=== PATIENT | male | born 1965 | race Caucasian/White ===

== ENCOUNTER 2016-07-23 12:24 | Inpatient (IN) | payer BC ==
[~2016-07-23] VITALS: Ht 188 cm; Wt 109.1 kg
[~2016-07-23 12:24] MED LIST: ALLDSR/24 PO; CMBIN INH; FLVHFAUNK; LANS15CA6 PO; T3; T4
[2016-07-23] MEDS ORDERED: ONDANSETRON INJ 2 MG/ML 2 ML VIAL IV STA (13:10)
[2016-07-23] MEDS ORDERED: MoRPHine SULFATE 4 MG/ML 1 ML CARP\\VIAL IV STA (13:10)
[2016-07-23 13:17] LABS: BASO % 0.2 %; BASO ABS # 0.03 K/uL (0-0.2); COMPLETE YES; EOS % 0.2 %; HEMATOCRIT 42.1 % (42-52); IG% 0.2 %; LYMPH % 6.1 %; LYMPH ABS # 0.89 K/uL (1.2-3.4); MEAN CELL VOLUME 89.8 fL (80-100); MEAN CORPUSCULAR HEMOGLOBIN 31.3 pg (25-34); MEAN CORPUSCULAR HGB CONC 34.9 g/dl (32-36); MEAN PLATELET VOLUME 9.1 fL (7.4-10.4); MONO % 8.3 %; PLATELET COUNT 282 K/uL (130-400); RED BLOOD COUNT 4.69 M/uL (4.7-6.1); WHITE BLOOD COUNT 14.63 K/uL (4.8-10.8)
[2016-07-23 13:34] LABS: BUN/CREATININE RATIO 14.7 (10-20); CALCIUM 8.8 mg/dl (8.5-10.1); CREATININE 1.2 mg/dl (0.60-1.40); POTASSIUM 4.1 mmol/L (3.5-5.1)
[2016-07-23] MEDS ORDERED: DIAZ5TAB PO (13:54)
[2016-07-23] MEDS ORDERED: PRAZ1CAP10 PO (13:54)
[2016-07-23] MEDS ORDERED: ADVIN50/60 INH (13:54)
[2016-07-23] MEDS ORDERED: TOPI50TA24 PO (13:54)
[2016-07-23] MEDS ORDERED: SPCCR30 TOP (13:54)
[2016-07-23] MEDS ORDERED: ATV/1 PO (13:54)
--- NOTE | 2016-07-23 14:31 | DIAGNOSTIC IMAGING REPORT ---
ABDOMEN AND PELVIS CT WITH IV CONTRAST CT DOSE: 751.18 mGy.cm HISTORY: Left lower quadrant abdominal pain. TECHNIQUE: Multiaxial CT images of the abdomen and pelvis were performed following the use of intravenous contrast. COMPARISON STUDY: Abdomen and pelvis CT 12/22/2008. FINDINGS: The liver, gallbladder, spleen, adrenal glands, and pancreas are unremarkable. No retroperitoneal lymphadenopathy. There are few bilateral renal calculi. The largest stone is seen within the right kidney and measures 4 mm. A 5 mm hypodense lesion within the right kidney is too small to characterize. There is a 1 cm obstructing stone at the left ureteropelvic junction resulting in moderate left hydronephrosis. There is associated left perinephric fat stranding/edema and a delayed left nephrogram due to the obstruction. No right-sided hydronephrosis. Normal bladder. No bowel wall thickening or obstruction. Normal appendix. IMPRESSION: 1. A 1 cm obstructing stone at the left ureteropelvic junction resulting in moderate left hydronephrosis. 2. Bilateral nephrolithiasis. Electronically signed by: Tim Madrid M.D. 07/23/2016 2:30 PM Dictated Date/Time: 07/23/2016 2:23 PM
[2016-07-23] MEDS ORDERED: HYDROmorphone INJ 1 MG/ML SYR IV STA (14:33)
--- NOTE | 2016-07-23 15:04 | EMERGENCY ROOM VISIT NOTE ---
History Report prepared by Manoj: Doron Cortez Under the Supervision of: Dr. Harsha Brothers M.D. First contact with patient: 13:04 Chief Complaint: ABDOMINAL PAIN Stated Complaint: DIVERTICULITIS Nursing Triage Summary: pt with diverticulitis flare up. pt reports constipated, left sided abdominal pain, nausea. pt hasnt ate since 1999 last pm. pt reports usually 'a normal bowl pattern' History of Present Illness The patient is a 51 year old male who presents to the Emergency Room with complaints of persistent pain in his left lower abdominal quadrant that began last night at 2200, 13 hours prior to arrival. The patient describes the pain as "sharp," and notes that it becomes worse when he sits down. He also complains of nausea that began about two hours ago. The patient notes that he has not had a bowel movement in over a day, which is unusual for him. He denies any vomiting or urinary irregularities. He has a history of diverticulitis, but has never had any issues with kidney stones. Source of History: patient Onset: 13 hours STEWARD/STEWARDESS BATH Position: abdomen (LLQ) Symptom Intensity: severe Quality: sharp Timing: other (Persistent) Modifying Factors (Worsening): other (Sitting) Associated Symptoms: + nausea, No urinary symptoms, No vomiting Review of Systems See HPI for pertinent positives & negatives. A total of 10 systems reviewed and were otherwise negative. Past Medical & Surgical Patient notes no past medical/surgical history. Family History Cancer Diabetes mellitus Heart disease Hypertension Social History Smoking Status: Never Smoker Drug Use: none Marital Status: Housing Status: lives with significant other Occupation Status: employed Current/Historical Medications Scheduled Diazepam (Valium), 5 MG PO DAILY Econazole Nitrate (Econazole Nitrate Crm 1% 30 Gm), TOP DAILY Fluticasone Prop/Salmeterol (Advair Diskus 500/50 60 Dose), 1 PUFF INH BID Lorazepam (Ativan), 1 MG PO DAILY Prazosin Hcl (Prazosin), 1 MG PO HS Topiramate (Topamax), 50 MG PO BID Allergies Coded Allergies: Shellfish (Verified Allergy, Severe, SEVERE., 07/23/16) [place] (Verified Allergy, Severe, SEVERE., 07/23/16) [place] (Verified Allergy, Severe, SEVERE., 07/23/16) Penicillins (Verified Allergy, Unknown, 07/23/16) Sulfa Drugs (Verified Allergy, Unknown, 07/23/16) Pantoprazole (Verified Adverse Reaction, Unknown, "NON-TOLERANT", 07/23/16) Physical Exam Vital Signs Date Time Temp Pulse Resp B/P Pulse Ox O2 Delivery O2 Flow Rate FiO2 07/23/16 14:31 58 20 143/92 100 Room Air 07/23/16 12:37 37.1 65 20 183/87 99 Room Air Physical Exam Constitutional: Vital signs reviewed. Eyes: Pupils are equal round reactive to light. Conjunctiva are noninjected. ENT: Pharynx is clear without erythema or exudate. Mucous membranes are moist. Neck supple without meningeal signs. Respiratory: Clear to auscultation bilaterally. Breath sounds are equal bilaterally. Cardiovascular: Regular rate and rhythm. No rubs or gallops. GI: Soft, nondistended, with tenderness in the LLQ. No guarding. Bowel sounds are present. Musculoskeletal: No peripheral edema. No CVA tenderness. Integumentary: No cyanosis. Neurological: The patient is awake and alert. No focal deficits. Psychiatric: Normal affect. Medical Decision & Procedures ER Provider Diagnostic Interpretation: Other radiology results as stated below per my review and the radiologist's interpretation: ABDOMEN AND PELVIS CT WITH IV CONTRAST CT DOSE: 751.18 mGy.cm HISTORY: Left lower quadrant abdominal pain. TECHNIQUE: Multiaxial CT images of the abdomen and pelvis were performed following the use of intravenous contrast. COMPARISON STUDY: Abdomen and pelvis CT 12/22/2008. FINDINGS: The liver, gallbladder, spleen, adrenal glands, and pancreas are unremarkable. No retroperitoneal lymphadenopathy. There are few bilateral renal calculi. The largest stone is seen within the right kidney and measures 4 mm. A 5 mm hypodense lesion within the right kidney is too small to characterize. There is a 1 cm obstructing stone at the left ureteropelvic junction resulting in moderate left hydronephrosis. There is associated left perinephric fat stranding/edema and a delayed left nephrogram due to the obstruction. No right-sided hydronephrosis. Normal bladder. No bowel wall thickening or obstruction. Normal appendix. IMPRESSION: 1. A 1 cm obstructing stone at the left ureteropelvic junction resulting in moderate left hydronephrosis. 2. Bilateral nephrolithiasis. Electronically signed by: Tim Madrid M.D. 07/23/2016 2:30 PM Dictated Date/Time: 07/23/2016 2:23 PM Laboratory Results 07/23/16 13:08 Red Blood Count 4.69, Mean Corpuscular Volume 89.8, Mean Corpuscular Hemoglobin 31.3, Mean Corpuscular Hemoglobin Concent 34.9, Mean Platelet Volume 9.1, Neutrophils (%) (Auto) 85.0, Lymphocytes (%) (Auto) 6.1, Monocytes (%) (Auto) 8.3, Eosinophils (%) (Auto) 0.2, Basophils (%) (Auto) 0.2, Neutrophils # (Auto) 12.43, Lymphocytes # (Auto) 0.89, Monocytes # (Auto) 1.22, Eosinophils # (Auto) 0.03, Basophils # (Auto) 0.03 07/23/16 13:08 Test 07/23/16 13:08 07/23/16 14:40 White Blood Count 14.63 K/uL (4.8-10.8) Red Blood Count 4.69 M/uL (4.7-6.1) Hemoglobin 14.7 g/dL (14.0-18.0) Hematocrit 42.1 % (42-52) Mean Corpuscular Volume 89.8 fL (80-100) Mean Corpuscular Hemoglobin 31.3 pg (25-34) Mean Corpuscular Hemoglobin Concent 34.9 g/dl (32-36) Platelet Count 282 K/uL (130-400) Mean Platelet Volume 9.1 fL (7.4-10.4) Neutrophils (%) (Auto) 85.0 % Lymphocytes (%) (Auto) 6.1 % Monocytes (%) (Auto) 8.3 % Eosinophils (%) (Auto) 0.2 % Basophils (%) (Auto) 0.2 % Neutrophils # (Auto) 12.43 K/uL (1.4-6.5) Lymphocytes # (Auto) 0.89 K/uL (1.2-3.4) Monocytes # (Auto) 1.22 K/uL (0.11-0.59) Eosinophils # (Auto) 0.03 K/uL (0-0.5) Basophils # (Auto) 0.03 K/uL (0-0.2) RDW Standard Deviation 46.0 fL (36.4-46.3) RDW Coefficient of Variation 14.0 % (11.5-14.5) Immature Granulocyte % (Auto) 0.2 % Immature Granulocyte # (Auto) 0.03 K/uL (0.00-0.02) Anion Gap 11.0 mmol/L (3-11) Est Creatinine Clear Calc Drug Dose 95.8 ml/min Estimated GFR () 80.7 Estimated GFR (Non- 69.6 BUN/Creatinine Ratio 14.7 (10-20) Calcium Level 8.8 mg/dl (8.5-10.1) Total Bilirubin 0.8 mg/dl (0.2-1) Direct Bilirubin 0.2 mg/dl (0-0.2) Aspartate Amino Transf (AST/SGOT) 21 U/L (15-37) Alanine Aminotransferase (ALT/SGPT) 28 U/L (12-78) Alkaline Phosphatase 74 U/L (45-117) Total Protein 7.6 gm/dl (6.4-8.2) Albumin 3.9 gm/dl (3.4-5.0) Lipase 161 U/L (73-393) Laboratory results as reviewed by me. Medications Administered Medications (Trade) Dose Ordered Sig/Mikel Route Start Time Stop Time Status Last Admin Dose Admin Morphine Sulfate (MoRPHine SULFATE INJ) 4 mg ONE STAT IV 07/23/16 13:10 07/23/16 13:12 DC 07/23/16 13:20 4 MG Ondansetron HCl (Zofran Inj) 4 mg NOW STAT IV 07/23/16 13:10 07/23/16 13:12 DC 07/23/16 13:20 4 MG Hydromorphone HCl (Dilaudid Inj) 0.5 mg NOW STAT IV 07/23/16 14:33 07/23/16 14:34 DC 07/23/16 14:47 0.5 MG ED Course 1307: The patient was evaluated in room A3. A complete history and physical exam was performed. 1310: Ordered Zofran 4 mg IV, Morphine Sulfate 4 mg IV. Medical Decision This is a 51-year-old male presents with left-sided abdominal pain. Differential diagnosis includes diverticulitis, perforation, abscess, renal colic, strain. I did perform a limited focused review of portions of the patient's old chart on the electronic medical record. The patient has had no recent pertinent visits to this hospital. I did evaluate the patient as noted above. IV access was established. I did treat patient with IV morphine and Zofran. I did order and personally review the patient's urinalysis as described above. I did order and review the patient 's blood work as noted in the electronic medical record. His white blood cell count is elevated. I did order a CT of the abdomen and pelvis. I did review the images myself as well as the radiology report as described above. He does have a 1 cm stone on the left side. I did reassess the patient. He is still having significant pain which he rates a 12 out of 10 in severity. He was given Dilaudid 0.5 mg IV. He did have some improvement but still in pain and wish to be hospitalized for pain control. I did discuss the case with the hospitalist and immigration case manager. Consults Time Called: 14:58 Consulting Physician: Mo Impression Primary Impression: Renal colic on left side Additional Impression: Obstructive uropathy Scribe Attestation The scribe's documentation has been prepared under my direct and personally reviewed by me in its entirety. I confirm that the note above accurately reflects all work, treatment, procedures, and medical decision making performed by me. Departure Information Dispostion Being Evaluated By Hospitalist Angel Briceno M.D. (PCP) Patient Instructions My [facility] Problem Qualifiers
[2016-07-23 15:11] LABS: URINE APPEARANCE CLOUDY (CLEAR); URINE BILIRUBIN NEG (NEG); URINE COLOR YELLOW; URINE EPITHELIAL CELL AUTO >30 /lpf (0-5); URINE NITRITE NEG (NEG); URINE PH 7.5 (4.5-7.5); URINE SPECIFIC GRAVITY > 1.045 (1.000-1.030); UROBILINOGEN NEG (NEG)
[2016-07-23 15:12] LABS: MANUAL MICROSCOPIC REQUIRED? NO; REVIEW REQ? YES
[2016-07-23] MEDS ORDERED: ONDANSETRON INJ 2 MG/ML 2 ML VIAL IV PRN ×2 (16:00→20:45)
[2016-07-23] MEDS ORDERED: HYDROmorphone INJ 0.5 MG/0.5 ML SYR IV PRN (16:00)
[2016-07-23] MEDS ORDERED: HYDROmorphone INJ 0.5 MG/0.5 ML SYR ONE (16:37)
--- NOTE | 2016-07-23 16:58 | History and Physical ---
History & Physical Date & Time of Service: Jul 23, 2016 at 16:29 Chief Complaint: Left lower quadrant pain Primary Care Physician: Angel Major M.D. History of Present Illness Source: patient This is a 51 y/o male with PMHx of asthma, anxiety and PTSD presented to the hospital complaining of Left lower quadrant abdominal pain since yesterday night. He states that the pain started yesterday around 22:00 and he never had this type of pain before. Describes the pain as sharp, rates it as 10-12 when severe, and sitting makes it worse. Lying down, standing and passing urine makes the pain better. He doesn't have any history of kidney stone. He usually don't drink water much. He drinks coffee a lot. He has hx of diverticulitis and he thought the pain may be was from the diverticulitis. He feels nauseated but denies vomiting. In ED he received morphine 4mg (4x) and Dilaudid 0.5mg and states the pain medication helped him with the pain. Denies fever, dysuria, urinary frequency, urinary urgency, hematuria, vomiting, SOB, headache, dizziness, or any other additional problems. Past Medical/Surgical History (1) Diverticulitis (2) Anxiety (3) Post Traumatic Stress Disorder (4) Asthma Family History Cancer Diabetes mellitus Heart disease Hypertension Social History Smoking Status: Former Smoker Alcohol Use: none Drug Use: none Marital Status: Occupational Status: employed Immunizations History of Influenza Vaccine: N/A History of Tetanus Vaccine?: Yes History of Pneumococcal: No History of Hepatitis B Vaccine: Unknown Multi-Drug Resistant Organisms History of MDRO: No Allergies Coded Allergies: Shellfish (Verified Allergy, Severe, SEVERE., 07/23/16) [place] (Verified Allergy, Severe, SEVERE., 07/23/16) [place] (Verified Allergy, Severe, SEVERE., 07/23/16) Penicillins (Verified Allergy, Unknown, 07/23/16) Sulfa Antibiotics (Verified Allergy, Unknown, ., 07/23/16) Pantoprazole (Verified Adverse Reaction, Unknown, "NON-TOLERANT", 07/23/16) Home Medications Scheduled Diazepam (Valium), 5 MG PO DAILY Econazole Nitrate (Econazole Nitrate Crm 1% 30 Gm), TOP DAILY Fluticasone Prop/Salmeterol (Advair Diskus 500/50 60 Dose), 1 PUFF INH BID Lorazepam (Ativan), 1 MG PO DAILY Prazosin Hcl (Prazosin), 1 MG PO HS Topiramate (Topamax), 50 MG PO BID Review of Systems Constitutional: No fever Respiratory: No cough, No dyspnea on exertion, No shortness of breath Cardiovascular: No chest pain Abdomen: + nausea, + pain (LLQ pain), No vomiting Musculoskeletal: No muscle pain Genitourinary - Male: No dysuria, No urinary frequency, No urinary incontinence , No urinary urgency Integumentary: No rash Physical Exam Vital Signs Date Time Temp Pulse Resp B/P Pulse Ox O2 Delivery O2 Flow Rate FiO2 07/23/16 15:30 61 18 142/78 99 Room Air 07/23/16 14:31 58 20 143/92 100 Room Air 07/23/16 12:37 37.1 65 20 183/87 99 Room Air General Appearance: WD/WN, + mild distress Neck: supple, trachea midline Respiratory/Chest: chest non-tender, lungs clear, normal breath sounds, no respiratory distress Cardiovascular: regular rate, rhythm, no edema, no murmur Abdomen/GI: normal bowel sounds, soft, no pulsatile mass, + tenderness (tender on LLQ on palpation) Extremities/Musculoskelatal: no pedal edema, non-tender Neurologic/Psych: alert, normal mood/affect, oriented x 3 Skin: normal color, warm/dry Diagnostics Laboratory Results Results Past 24 Hours Test 07/23/16 13:08 07/23/16 14:40 Range/Units White Blood Count 14.63 4.8-10.8 K/uL Red Blood Count 4.69 4.7-6.1 M/uL Hemoglobin 14.7 14.0-18.0 g/dL Hematocrit 42.1 42-52 % Mean Corpuscular Volume 89.8 80-100 fL Mean Corpuscular Hemoglobin 31.3 25-34 pg Mean Corpuscular Hemoglobin Concent 34.9 32-36 g/dl Platelet Count 282 130-400 K/uL Mean Platelet Volume 9.1 7.4-10.4 fL Neutrophils (%) (Auto) 85.0 % Lymphocytes (%) (Auto) 6.1 % Monocytes (%) (Auto) 8.3 % Eosinophils (%) (Auto) 0.2 % Basophils (%) (Auto) 0.2 % Neutrophils # (Auto) 12.43 1.4-6.5 K/uL Lymphocytes # (Auto) 0.89 1.2-3.4 K/uL Monocytes # (Auto) 1.22 0.11-0.59 K/uL Eosinophils # (Auto) 0.03 0-0.5 K/uL Basophils # (Auto) 0.03 0-0.2 K/uL RDW Standard Deviation 46.0 36.4-46.3 fL RDW Coefficient of Variation 14.0 11.5-14.5 % Immature Granulocyte % (Auto) 0.2 % Immature Granulocyte # (Auto) 0.03 0.00-0.02 K/uL Sodium Level 141 136-145 mmol/L Potassium Level 4.1 3.5-5.1 mmol/L Chloride Level 109 98-107 mmol/L Carbon Dioxide Level 21 21-32 mmol/L Anion Gap 11.0 3-11 mmol/L Blood Urea Nitrogen 18 7-18 mg/dl Creatinine 1.20 0.60-1.40 mg/dl Est Creatinine Clear Calc Drug Dose 95.8 ml/min Estimated GFR () 80.7 Estimated GFR (Non- 69.6 BUN/Creatinine Ratio 14.7 10-20 Random Glucose 110 70-99 mg/dl Calcium Level 8.8 8.5-10.1 mg/dl Total Bilirubin 0.8 0.2-1 mg/dl Direct Bilirubin 0.2 0-0.2 mg/dl Aspartate Amino Transf (AST/SGOT) 21 15-37 U/L Alanine Aminotransferase (ALT/SGPT) 28 12-78 U/L Alkaline Phosphatase 74 45-117 U/L Total Protein 7.6 6.4-8.2 gm/dl Albumin 3.9 3.4-5.0 gm/dl Lipase 161 73-393 U/L Urine Color YELLOW Urine Appearance CLOUDY CLEAR Urine pH 7.5 4.5-7.5 Urine Specific [place] > 1.045 1.000-1.030 Urine Protein NEG NEG Urine Glucose (UA) NEG NEG Urine Ketones 2+ NEG Urine Occult Blood NEG NEG Urine Nitrite NEG NEG Urine Bilirubin NEG NEG Urine Urobilinogen NEG NEG Urine Leukocyte Esterase NEG NEG Urine WBC (Auto) 5-10 0-5 /hpf Urine RBC (Auto) 5-10 0-4 /hpf Urine Hyaline Casts (Auto) 1-5 0-5 /lpf Urine Epithelial Cells (Auto) >30 0-5 /lpf Urine Bacteria (Auto) NEG NEG Urine Renal Epithelial Cells 0-5 /lpf Urine Crystals AMORPHOUS SEDIMENT NONE PRSENT Urine Sperm (Auto) PRESENT NOT PRESENT Diagnostic Radiology ABDOMEN AND PELVIS CT WITH IV CONTRAST CT DOSE: 751.18 mGy.cm HISTORY: Left lower quadrant abdominal pain. TECHNIQUE: Multiaxial CT images of the abdomen and pelvis were performed following the use of intravenous contrast. COMPARISON STUDY: Abdomen and pelvis CT 12/22/2008. FINDINGS: The liver, gallbladder, spleen, adrenal glands, and pancreas are unremarkable. No retroperitoneal lymphadenopathy. There are few bilateral renal calculi. The largest stone is seen within the right kidney and measures 4 mm. A 5 mm hypodense lesion within the right kidney is too small to characterize. There is a 1 cm obstructing stone at the left ureteropelvic junction resulting in moderate left hydronephrosis. There is associated left perinephric fat stranding/edema and a delayed left nephrogram due to the obstruction. No right-sided hydronephrosis. Normal bladder. No bowel wall thickening or obstruction. Normal appendix. IMPRESSION: 1. A 1 cm obstructing stone at the left ureteropelvic junction resulting in moderate left hydronephrosis. 2. Bilateral nephrolithiasis. Electronically signed by: Tim Madrid M.D. 07/23/2016 2:30 PM Dictated Date/Time: 07/23/2016 2:23 PM The status of this report is Signed. Draft = Not yet reviewed or approved by Radiologist. Signed = Reviewed and approved by Radiologist. <AttendingPhy></AttendingPhy> <FamilyPhy>Angel Major M.D.</FamilyPhy> < PrimaryPhy>Angel Major M.D.</PrimaryPhy> <UnitNumber>[id number]</UnitNumber > <VisitNumber>[id number]</VisitNumber> <PatientName>AMI LOWERY</ PatientName> <DateOfBirth>1965</DateOfBirth> <Location>[facility]</Location> < ServiceDate>07/23/16</ServiceDate> <MNE>ESINDI</MNE> <OrderingPhy>Harsha Brothers MD</OrderingPhy> <OrderingPhyMNE>f rep ord dr casillas</OrderingPhyMNE> < DictatingPhyMNE>f rep dict dr casillas</DictatingPhyMNE> <CCListMNE>f rep ct mne</ CCListMNE> <AdmittingPhyMNE>f pt admit dr casillas</AdmittingPhyMNE> <AttendingPhyMNE >f pt attend dr casillas</AttendingPhyMNE> <ConsultingPhyMNE>f pt consult dr casillas</ConsultingPhyMNE> <FamilyPhyMNE>f pt fam dr casillas</FamilyPhyMNE> <OtherPhyMNE>f pt other dr casillas</OtherPhyMNE> < PrimaryPhyMNE>f pt prim care dr casillas</PrimaryPhyMNE Impression Assessment and Plan This is a 51 y/o male with PMHx of asthma, anxiety and PTSD presented to the hospital complaining of Left lower quadrant abdominal pain since yesterday night. 1. Nephrolithiasis - CT abd/pelvic: A 1 cm obstructing stone at the left ureteropelvic junction resulting in moderate left hydronephrosis. Bilateral nephrolithiasis. - Patient probably will need a stent placement. - Dilaudid 0.5 mg q2h prn for pain - IVF NSS+20 meq KCL @ 100mls/hr - IV Ciprofloxacin 400mg q12h - IV Zofran 4mg q6h prn - NPO except meds - Consulted Urology 2. Asthma - Continue Advair INH BID 3. Anxiety/PTSD - Continue Diazepam 5mg - Continue Ativan 1mg - Continue Topamax 50mg BID - Continue Prazosin 1mg 4. DVT prophylaxis - Hold on to anticoagulant for now given patient will most likely will need stent placement 5. Code status - Full code Level of Care Med/Surg Resuscitation Status FULL RESUSCITATION VTE Prophylaxis VTE Risk Assessment Done? Y/N: Yes Risk Level: Low Note about 45 minutes Assessment and Plan Attending Addendum: I have physically seen and examined this patient, have directed their medical care, have supervised the medical residents activities, and agree with the H&P as noted above, with the following changes: NONE The patient is awake, well-developed and adequately nourished, alert and oriented 3, normocephalic and atraumatic, lying in bed and in moderate acute distress secondary to abdominal pain. HEENT--PERRL, EOMI, mucous membranes and oropharynx dry. Neck--supple, no JVD or bruits, thyroid normal, trachea midline, no adenopathy. Heart--normal S1 and S2, no extra beats, no murmurs, rubs or gallops. Lungs--clear bilaterally, no respiratory distress, no accessory muscle use. Abdomen--normal bowel sounds and soft, tender left lower quadrant, no hernias or masses, no organomegaly. Extremities--no cyanosis, clubbing or edema. There are good distal pulses b/l. Dermatologic--normal skin turgor, normal color, warm and dry, no abnormal lymph nodes, no rash. Neurologic--cranial nerves II through XII grossly intact, motor and sensory examination normal. Rheumatologic--normal range of motion, nontender, muscles and joints. Psychiatric--normal affect. Assessment and Plan: Left 1 cm obstructing ureteral stone with moderate left hydronephrosis--patient be admitted to the medical surgical floor. Dr. Paulson has seen the patient tonight and will be taken the patient to the OR for stent placement. He'll be placed on normal saline with potassium chloride 20 mEq 100 mils per hour, kept nothing by mouth overnight, place on Cipro 40 mg IV every 12 hours, Zofran 4 mg IV every 6 hours when necessary. Asthma-- continue current inhaler of Advair twice a day. Anxiety/PTSD-- continue current regimen of diazepam 5 mg daily, Ativan 1 mg by mouth daily, Topamax 50 mg by mouth twice a day and prazosin 1 mg by mouth at bedtime.
[2016-07-23 17:20] VITALS: BP 144/82; PULSE 54; TEMP 36.9; O2SAT 99; Ht 188 cm; Wt 109.1 kg
--- NOTE | 2016-07-23 18:45 | Urology Consultation ---
History General Date of Service: Jul 23, 2016. Primary Care Physician: Angel Major M.D. History of Present Illness 51 y/o male with no stone history presented to the ER today with itractable left flank pain which is ongoing . He has had a ct which shows a 1 cm left upj stone . He denies fever . His pain remains severe even with pain meds . He has been NPO. Imaging Imaging: CT Laboratory Labs were reviewed and are within normal limits unless listed below. Labs are available in the chart and at [facility] Problem List Medical Problems: (1) Obstructive uropathy Status: Acute (2) Renal colic on left side Status: Acute Family History Cancer Diabetes mellitus Heart disease Hypertension Social History Hx Tobacco Use In Past Year?: No Marital status: Occupation status: employed Immunizations History of Influenza Vaccine: N/A History of Tetanus Vaccine?: Yes History of Pneumococcal: No History of Hepatitis B Vaccine: Unknown History of MDRO No Allergies Coded Allergies: Shellfish (Verified Allergy, Severe, SEVERE., 07/23/16) [place] (Verified Allergy, Severe, SEVERE., 07/23/16) [place] (Verified Allergy, Severe, SEVERE., 07/23/16) Penicillins (Verified Allergy, Unknown, 07/23/16) Sulfa Drugs (Verified Allergy, Unknown, 07/23/16) Pantoprazole (Verified Adverse Reaction, Unknown, "NON-TOLERANT", 07/23/16) Medications Home Medications: Home Meds and Scripts Medications Dose Route/Sig Max Daily Dose Days Date Category Econazole Nitrate Crm 1% 30 Gm (Econazole Nitrate) 90 Appln/30 Gm Cr TOP DAILY 07/23/16 Reported Advair Diskus 500/50 60 Dose (Fluticasone Prop/Salmeterol) 1 Ea Aerp 1 Puff INH BID 07/23/16 Reported Prazosin (Prazosin HCl) 1 Mg Cap 1 Mg PO HS 07/23/16 Reported Ativan (Lorazepam) 1 Mg Tab 1 Mg PO DAILY 07/23/16 Reported Valium (Diazepam) 5 Mg Tab 5 Mg PO DAILY 07/23/16 Reported Topamax (Topiramate) 50 Mg Tab 50 Mg PO BID 07/23/16 Reported Inpatient Medications: Current Inpatient Medications Medications (Trade) Dose Ordered Sig/Mikel Route Start Time Stop Time Status Last Admin Dose Admin Ondansetron HCl (Zofran Inj) 4 mg Q6H PRN IV 07/23/16 16:00 08/22/16 15:59 UNV Diazepam (Valium Tab) 5 mg DAILY PO 07/24/16 09:00 08/23/16 08:59 UNV Salmeterol Xinafoate/ Fluticasone (Advair Diskus 500/50 Inh) 1 puff BID INH 07/23/16 21:00 08/22/16 20:59 UNV Lorazepam (Ativan Tab) 1 mg DAILY PO 07/24/16 09:00 08/23/16 08:59 UNV Topiramate 50 mg 50 mg BID PO 07/23/16 21:00 08/22/16 20:59 UNV Ciprofloxacin/ Dextrose 400 mg/ Prmx 200 ml @ 100 mls/hr Q12 IV 07/23/16 21:00 07/28/16 20:59 UNV Potassium Chloride/Sodium Chloride (Nss + 20meq KCl 1000ml) 1,000 ml @ 100 mls/hr Q10H IV 07/23/16 18:00 08/22/16 17:59 Hydromorphone HCl (Dilaudid Inj) 0.5 mg Q2H PRN IV 07/23/16 16:00 08/06/16 15:59 UNV Non-Formulary Medication 1 ea UD N/A 07/23/16 16:30 08/22/16 16:29 UNV Review of Systems Review of Systems Additional Comments: see ros from admission h and p Physical Exam Vital Signs: Vital Signs Past 12 Hours Date Time Temp Pulse Resp B/P Pulse Ox O2 Delivery O2 Flow Rate FiO2 07/23/16 17:20 36.9 54 16 144/82 99 Room Air 07/23/16 17:15 56 18 138/83 98 07/23/16 16:30 50 18 138/83 98 Room Air 07/23/16 15:30 61 18 142/78 99 Room Air 07/23/16 14:31 58 20 143/92 100 Room Air 07/23/16 12:37 37.1 65 20 183/87 99 Room Air Physical Exam: General Appearance: + severe distress Eyes: bilateral eyes EOMI, bilateral eyes PERRL, bilateral eyes normal inspection ENT: normal ENT inspection, hearing grossly normal, TMs normal, pharynx normal Neck: supple, no adenopathy, thyroid normal, no JVD Respiratory/Chest: no respiratory distress Cardiovascular: no edema Extremities: no calf tenderness Neurologic/Psychiatric: 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 Plan on placing stent and scheduling elective eswl . If stone is not visible on kub he may need to have urine alkalinized if uric acid . Discussed stent and possibility that pain from stent might be a problem. Pt understands and agrees to proceed
[2016-07-23 19:29] VITALS: BP 136/88; PULSE 54; TEMP 36.9; O2SAT 99
[2016-07-23] MEDS ORDERED: ATROPINE SULFATE 0.1 MG/ML 5ML SYR IV PRN (20:45)
[2016-07-23] MEDS ORDERED: HYDROmorphone INJ 2 MG/ML SYR/VIAL IV PRN (20:45)
[2016-07-23] MEDS ORDERED: NALOXONE HCL 0.4 MG/1 ML VIAL/CARP IV PRN (20:45)
[2016-07-23] MEDS ORDERED: EpHEDrine SULFATE INJ 50 MG/ML AMP IV PRN (20:45)
[2016-07-23] MEDS ORDERED: MEPERIDINE HCL 25 MG/ML CARP IV PRN (20:45)
[2016-07-23] MEDS ORDERED: FENTANYL CITRATE INJ 50 MCG/1 ML 2 ML VIAL IV PRN (20:45)
[2016-07-23] MEDS ORDERED: PHENYLEPHRINE 100MCG/ML 5ML SYR IV PRN (20:45)
[2016-07-23] MEDS ORDERED: LABETALOL HCL IV 5 MG/ML 20ML IV PRN (20:45)
[2016-07-23] MEDS ORDERED: FLUMAZENIL 0.1 MG/1 ML 10 ML VIAL IV PRN (20:45)
[2016-07-23] MEDS ORDERED: FENTANYL CITRATE INJ 50 MCG/1 ML 2 ML VIAL ONE (20:49)
[2016-07-23] MEDS ORDERED: PRAZOSIN HCL 1 MG CAP PO SCH (21:00)
[2016-07-23] MEDS ORDERED: PRAZOSIN HCL 1 MG PO SCH (21:00)
[2016-07-23] MEDS: TOPIRAMATE 25 MG TAB PO SCH (21:00)
[2016-07-23] MEDS ORDERED: CIPROFLOXACIN / D5W 400 MG in PREMIXED IN D5W 200 ML IV SCH (21:00)
[2016-07-23] MEDS ORDERED: DEXAMETHASONE SOD INJ 4 MG/ML VIAL ONE (21:06)
[2016-07-23] MEDS ORDERED: ONDANSETRON INJ 2 MG/ML 2 ML VIAL ONE (21:06)
[2016-07-23] MEDS ORDERED: PROPOFOL IV EMULSION 10 MG/ML 20 ML VIAL IV ONE (21:06)
[2016-07-23] MEDS ORDERED: LIDOCAINE HCL 2% 2 ML VIAL (20MG/ML) ONE (21:06)
[2016-07-23] MEDS ORDERED: CONRAY 30% 150ML BOTTLE INSTIL ONE (21:11)
--- NOTE | 2016-07-23 21:20 | [facility] Post Operative Brief Note ---
Immediate Operative Summary Operative Date Jul 23, 2016. Pre-Operative Diagnosis Left Ureteral Stone Post-Operative Diagnosis Same as preop Procedure(s) Performed Cystoscopy, Left Ureteral Stent Insertion Surgeon Dr. Paulson Vault Clerk Surgeon(s) none Estimated Blood Loss 0 ML Findings dilated l renal pelvis Specimens none per Surgeon Drains 5 by 26 cm stent Disposition Recovery Room / PACU
--- NOTE | 2016-07-23 21:45 | Anesthesiology Progress Note ---
Anesthesia Post Op Note Date & Time Jul 23, 2016 at 21:45 Vital Signs Pain Intensity: 0 Vital Signs Past 12 Hours Date Time Temp Pulse Resp B/P Pulse Ox O2 Delivery O2 Flow Rate FiO2 07/23/16 21:35 67 16 131/72 99 Mask 10 07/23/16 21:25 70 18 122/67 99 Mask 10 07/23/16 21:23 36.6 72 18 119/89 99 Mask 10 07/23/16 19:29 36.9 54 14 136/88 99 Room Air 07/23/16 17:20 99 Room Air 07/23/16 17:20 36.9 54 16 144/82 99 Room Air 07/23/16 17:15 56 18 138/83 98 07/23/16 16:30 50 18 138/83 98 Room Air 07/23/16 15:30 61 18 142/78 99 Room Air 07/23/16 14:31 58 20 143/92 100 Room Air 07/23/16 12:37 37.1 65 20 183/87 99 Room Air Notes Mental Status: alert / awake / arousable, participated in evaluation Pt Amnestic to Procedure: Yes Nausea / Vomiting: adequately controlled Pain: adequately controlled Airway Patency, RR, SpO2: stable & adequate BP & HR: stable & adequate Hydration State: stable & adequate Anesthetic Complications: no major complications apparent
--- NOTE | 2016-07-23 21:56 | DIAGNOSTIC IMAGING REPORT ---
FLUOROSCOPIC IMAGES FROM LEFT RETROGRADE EXAM CLINICAL HISTORY: Cystoscopy with left ureteral stent placement. Fluoroscopy time: 13 seconds COMPARISON STUDY: CT of the abdomen and pelvis July 23, 2016. FINDINGS: 2 fluoroscopic images from a left retrograde exam were obtained. These images demonstrate cannulation of the left ureter. Left hydronephrosis is again noted. Final image partially visualizes a left ureteral stent with proximal aspect of the stent within the renal pelvis. IMPRESSION: Fluoroscopic images from left retrograde exam with stent insertion. Electronically signed by: Gonzales Yin M.D. 07/23/2016 9:54 PM Dictated Date/Time: 07/23/2016 9:53 PM
[2016-07-23 22:15] VITALS: O2SAT 95
[2016-07-23] MEDS: NSS + 20MEQ KCL 1000ML 1,000 ML IV SCH (22:36)
[2016-07-23] MEDS: FLUTICASONE/SALMETEROL (ADVAIR) 500/50 INH 14 PUFF INH SCH (22:37)
[2016-07-23 22:45] VITALS: BP 110/62; PULSE 79; TEMP 36.9; O2SAT 95
[2016-07-23 22:49] VITALS: BP 117/73; PULSE 71; TEMP 36.8; O2SAT 100
[2016-07-23 23:15] VITALS: BP 111/70; PULSE 81; TEMP 36.8; O2SAT 94
--- NOTE | 2016-07-23 23:48 | OPERATIVE REPORT ---
DATE OF OPERATION: 07/23/2016 PROCEDURE PERFORMED: Cystoscopy and left stent placement. INDICATIONS: The patient is a 51-year-old male with significant ongoing flank pain who elected to have a stent placed this evening in preparation hopefully for either lithotripsy or alkalinization of his urine. We discussed the options including trial of passage, but given the size of the stone, this seemed unrealistic, and the patient's again pain was ongoing relatively severe. DESCRIPTION OF THE PROCEDURE: The patient was taken to the operating room where he had been marked. He was given preoperative antibiotics, had Venodyne stockings placed and was given general anesthesia. Cystoscopy was performed. Retrograde was done in the left ureter which showed a dilated left collecting system, could not clearly see a stone. The UPJ appeared to be funneled, but there was poor drainage out of the UPJ. I was able to pass a guidewire through the open ended catheter into the renal pelvis on the left side and then passed a 5-Estonian 26 cm stent, so there was good curl in the left renal pelvis and a curl in the bladder. The wire was removed, the bladder was emptied and the patient was transferred to the recovery room in stable condition. I attest to the content of the Intraoperative Record and any orders documented therein. Any exceptio ns are noted below.
[2016-07-24] VITALS (9 sets, daily range): BP systolic 105–116; BP diastolic 60–72; PULSE 67–84; TEMP 36.3–36.9; O2SAT 94–97
[2016-07-24] MEDS: CIPROFLOXACIN / D5W 400 MG in PREMIXED IN D5W 200 ML IV SCH ×2 (02:06→13:59)
[2016-07-24] MEDS: NSS + 20MEQ KCL 1000ML 1,000 ML IV SCH ×2 (05:21→14:00)
[2016-07-24 07:15] LABS: HEMATOCRIT 39.1 % (42-52); MEAN CELL VOLUME 90.7 fL (80-100); MEAN CORPUSCULAR HEMOGLOBIN 30.9 pg (25-34); MEAN PLATELET VOLUME 9.5 fL (7.4-10.4); PLATELET COUNT 270 K/uL (130-400); RED BLOOD COUNT 4.31 M/uL (4.7-6.1); WHITE BLOOD COUNT 12.09 K/uL (4.8-10.8)
[2016-07-24 07:46] LABS: BUN/CREATININE RATIO 14.5 (10-20); CALCIUM 8.1 mg/dl (8.5-10.1); POTASSIUM 3.8 mmol/L (3.5-5.1)
--- NOTE | 2016-07-24 07:59 | Progress Note ---
Subjective Date of Service: Jul 24, 2016. Subjective Pt evaluation today including: conversation w/ patient, chart review, lab review Voiding: no voiding problems 51 yo male s/p left ureteral stent placement. Pt reports he is feeling well this morning. Denies pain, n/v, or hematuria. He reports some slight dysuria initially, but otherwise has improved. Labs stable. Problem List Medical Problems: (1) Obstructive uropathy Status: Acute (2) Renal colic on left side Status: Acute Review of Systems Constitutional: No chills, No fever Respiratory: No shortness of breath Cardiac: No chest pain Abdomen: No nausea, No pain Male : No dysuria, No incontinence Heme: No abnormal bleeding/bruising Objective Vital Signs Date Time Temp Pulse Resp B/P Pulse Ox O2 Delivery O2 Flow Rate FiO2 07/24/16 03:20 36.3 71 16 108/68 96 Room Air 07/24/16 01:14 36.8 69 16 112/72 97 Room Air 07/24/16 00:45 Room Air 07/24/16 00:15 36.6 79 15 108/66 94 Room Air 07/23/16 23:15 36.8 81 15 111/70 94 Room Air 07/23/16 22:49 36.8 71 16 117/73 100 Nasal Cannula 2.0 07/23/16 22:45 36.9 79 16 110/62 95 Nasal Cannula 2.0 07/23/16 22:15 95 Nasal Cannula 2.0 07/23/16 22:05 68 16 121/71 100 Nasal Cannula 2 07/23/16 21:55 36.6 63 16 127/79 100 Nasal Cannula 2 07/23/16 21:45 67 16 137/78 99 Nasal Cannula 2 07/23/16 21:35 67 16 131/72 99 Mask 10 07/23/16 21:25 70 18 122/67 99 Mask 10 07/23/16 21:23 36.6 72 18 119/89 99 Mask 10 07/23/16 19:29 36.9 54 14 136/88 99 Room Air 07/23/16 17:20 99 Room Air 07/23/16 17:20 36.9 54 16 144/82 99 Room Air 07/23/16 17:15 56 18 138/83 98 07/23/16 16:30 50 18 138/83 98 Room Air 07/23/16 15:30 61 18 142/78 99 Room Air 07/23/16 14:31 58 20 143/92 100 Room Air 07/23/16 12:37 37.1 65 20 183/87 99 Room Air Physical Exam General Appearance: no apparent distress Eyes: normal inspection ENT: hearing grossly normal Neck: no JVD Respiratory/Chest: no respiratory distress, no accessory muscle use Cardiovascular: no JVD Extremities: normal inspection Neurologic/Psychiatric: alert, normal mood/affect, oriented x 3 Skin: normal color Laboratory Results Last 24 Hours Test 07/23/16 13:08 07/23/16 14:40 07/24/16 06:34 White Blood Count 14.63 K/uL 12.09 K/uL Red Blood Count 4.69 M/uL 4.31 M/uL Hemoglobin 14.7 g/dL 13.3 g/dL Hematocrit 42.1 % 39.1 % Mean Corpuscular Volume 89.8 fL 90.7 fL Mean Corpuscular Hemoglobin 31.3 pg 30.9 pg Mean Corpuscular Hemoglobin Concent 34.9 g/dl 34.0 g/dl Platelet Count 282 K/uL 270 K/uL Mean Platelet Volume 9.1 fL 9.5 fL Neutrophils (%) (Auto) 85.0 % Lymphocytes (%) (Auto) 6.1 % Monocytes (%) (Auto) 8.3 % Eosinophils (%) (Auto) 0.2 % Basophils (%) (Auto) 0.2 % Neutrophils # (Auto) 12.43 K/uL Lymphocytes # (Auto) 0.89 K/uL Monocytes # (Auto) 1.22 K/uL Eosinophils # (Auto) 0.03 K/uL Basophils # (Auto) 0.03 K/uL RDW Standard Deviation 46.0 fL 46.8 fL RDW Coefficient of Variation 14.0 % 14.0 % Immature Granulocyte % (Auto) 0.2 % Immature Granulocyte # (Auto) 0.03 K/uL Sodium Level 141 mmol/L 143 mmol/L Potassium Level 4.1 mmol/L 3.8 mmol/L Chloride Level 109 mmol/L 113 mmol/L Carbon Dioxide Level 21 mmol/L 21 mmol/L Anion Gap 11.0 mmol/L 9.0 mmol/L Blood Urea Nitrogen 18 mg/dl 15 mg/dl Creatinine 1.20 mg/dl 1.00 mg/dl Est Creatinine Clear Calc Drug Dose 95.8 ml/min 114.9 ml/min Estimated GFR () 80.7 100.6 Estimated GFR (Non- 69.6 86.8 BUN/Creatinine Ratio 14.7 14.5 Random Glucose 110 mg/dl 140 mg/dl Calcium Level 8.8 mg/dl 8.1 mg/dl Total Bilirubin 0.8 mg/dl Direct Bilirubin 0.2 mg/dl Aspartate Amino Transf (AST/SGOT) 21 U/L Alanine Aminotransferase (ALT/SGPT) 28 U/L Alkaline Phosphatase 74 U/L Total Protein 7.6 gm/dl Albumin 3.9 gm/dl Lipase 161 U/L Urine Color YELLOW Urine Appearance CLOUDY Urine pH 7.5 Urine Specific [place] > 1.045 Urine Protein NEG Urine Glucose (UA) NEG Urine Ketones 2+ Urine Occult Blood NEG Urine Nitrite NEG Urine Bilirubin NEG Urine Urobilinogen NEG Urine Leukocyte Esterase NEG Urine WBC (Auto) 5-10 /hpf Urine RBC (Auto) 5-10 /hpf Urine Hyaline Casts (Auto) 1-5 /lpf Urine Epithelial Cells (Auto) >30 /lpf Urine Bacteria (Auto) NEG Urine Renal Epithelial Cells /lpf Urine Crystals AMORPHOUS SEDIMENT Urine Sperm (Auto) PRESENT Assessment and Plan POD #1 s/p left ureteral stent placement AFVSS. Pt doing well post-op. KUB reviewed this morning. Stone visible. Recommend outpatient ESWL for further management of stone. Will arrange outpatient f/u next week to discuss. Pt OK for d/c home from [facility]. Recommend d/c home on Flomax, 3 days of Cipro, oral pain medication, and Colace. Thanks for allowing us to participate in this pt's care. Discharge planning: home
--- NOTE | 2016-07-24 08:19 | DIAGNOSTIC IMAGING REPORT ---
KUB CLINICAL HISTORY: Ureteral calculus. FINDINGS: An AP abdominal radiograph is correlated with abdominal CT dated 07/23/2016. A left ureteral stent is new from previous. The large calculus previous identified in the left ureter has likely been pushed back, and now projects over the left lower pole collecting system. This measures up to 12 mm. No calcifications are seen along the course of the stent. No calcifications are identified in the right kidney the right renal shadow is largely obscured by overlying colonic contents. There is a nonobstructed abdominal bowel gas pattern. The bony structures appear intact. IMPRESSION: 1. A left ureteral stent is new from previous. No calcifications are seen along the course of the stent. 2. The large left ureteral calculus identified by CT on 07/23/2016 has likely been pushed back into the left renal collecting system. See above. Electronically signed by: Jamin Bassett M.D. 07/24/2016 8:18 AM Dictated Date/Time: 07/24/2016 8:16 AM
--- NOTE | 2016-07-24 08:52 | DIAGNOSTIC IMAGING REPORT ---
TWO VIEW CHEST CLINICAL HISTORY: Preoperative examination. FINDINGS: PA and lateral chest radiographs are compared to study dated 07/14/10. The cardiomediastinal silhouette is unremarkable. There is mild elevation of the left hemidiaphragm. The lungs and pleural spaces are clear. There is no pneumothorax. The bony thorax appears intact. IMPRESSION: No active disease in the chest. Electronically signed by: Jmain Bassett M.D. 07/24/2016 8:51 AM Dictated Date/Time: 07/24/2016 8:50 AM
[2016-07-24] MEDS ORDERED: TAMSULOSIN HCL 0.4 MG CAP PO SCH (09:00)
[2016-07-24] MEDS ORDERED: DIAZEPAM 5MG TAB PO SCH (09:00)
[2016-07-24] MEDS ORDERED: LORAZEPAM 1 MG TAB PO SCH (09:00)
[2016-07-24] MEDS: FLUTICASONE/SALMETEROL (ADVAIR) 500/50 INH 14 PUFF INH SCH (09:18)
[2016-07-24] MEDS: TOPIRAMATE 25 MG TAB PO SCH (09:18)
[2016-07-24] MEDS ORDERED: NURSING VERBAL MED ORDER ONE (09:30)
[2016-07-24] MEDS ORDERED: ACETAMINOPHEN 325 MG TAB PO PRN (10:00)
--- NOTE | 2016-07-24 14:05 | Discharge Summary ---
Discharge Summary Admission Date: Jul 23, 2016 at 16:18 Discharge Date: Jul 24, 2016 Principal Diagnosis: left obstructive renal calculus Immunizations: Have You Had Influenza Vaccine: N/A History of Tetanus Vaccine?: Yes History of Pneumococcal: No History of Hepatitis B Vaccine: Unknown Medication Reconciliation New Medications: Ciprofloxacin (Ciprofloxacin HCl) 500 Mg Tab 500 MG PO BID for 3 Days Oxycodone/Acetaminophen 5MG/325MG (Percocet 5MG/325MG) Tab 1 TABLET PO Q6H PRN for Pain, #10 TAB Continued Medications: Diazepam (Valium) 5 Mg Tab 5 MG PO DAILY, TAB Econazole Nitrate (Econazole Nitrate Crm 1% 30 Gm) 90 Appln/30 Gm Cr TOP DAILY Fluticasone Prop/Salmeterol (Advair Diskus 500/50 60 Dose) 1 Ea Aerp 1 PUFF INH BID, INHALER Lorazepam (Ativan) 1 Mg Tab 1 MG PO DAILY, TAB Prazosin Hcl (Prazosin) 1 Mg Cap 1 MG PO HS, CAP Topiramate (Topamax) 50 Mg Tab 50 MG PO BID, TAB Referrals At Discharge Follow up Referrals: Urologist Referral - Within 1-2 Weeks with Joshua Paulson M.D. Discharge Exam ABDOMEN AND PELVIS CT WITH IV CONTRAST CT DOSE: 751.18 mGy.cm HISTORY: Left lower quadrant abdominal pain. TECHNIQUE: Multiaxial CT images of the abdomen and pelvis were performed following the use of intravenous contrast. COMPARISON STUDY: Abdomen and pelvis CT 12/22/2008. FINDINGS: The liver, gallbladder, spleen, adrenal glands, and pancreas are unremarkable. No retroperitoneal lymphadenopathy. There are few bilateral renal calculi. The largest stone is seen within the right kidney and measures 4 mm. A 5 mm hypodense lesion within the right kidney is too small to characterize. There is a 1 cm obstructing stone at the left ureteropelvic junction resulting in moderate left hydronephrosis. There is associated left perinephric fat stranding/edema and a delayed left nephrogram due to the obstruction. No right-sided hydronephrosis. Normal bladder. No bowel wall thickening or obstruction. Normal appendix. IMPRESSION: 1. A 1 cm obstructing stone at the left ureteropelvic junction resulting in moderate left hydronephrosis. 2. Bilateral nephrolithiasis. KUB CLINICAL HISTORY: Ureteral calculus. FINDINGS: An AP abdominal radiograph is correlated with abdominal CT dated 07/23/2016. A left ureteral stent is new from previous. The large calculus previous identified in the left ureter has likely been pushed back, and now projects over the left lower pole collecting system. This measures up to 12 mm. No calcifications are seen along the course of the stent. No calcifications are identified in the right kidney the right renal shadow is largely obscured by overlying colonic contents. There is a nonobstructed abdominal bowel gas pattern. The bony structures appear intact. IMPRESSION: 1. A left ureteral stent is new from previous. No calcifications are seen along the course of the stent. 2. The large left ureteral calculus identified by CT on 07/23/2016 has likely been pushed back into the left renal collecting system. See above. Hospital Course This is a 51 y/o male with PMHx of asthma, anxiety and PTSD presented to the hospital complaining of Left lower quadrant abdominal pain since yesterday night. He states that the pain started yesterday around 22:00 and he never had this type of pain before. Describes the pain as sharp, rates it as 10-12 when severe, and sitting makes it worse. Lying down, standing and passing urine makes the pain better. He doesn't have any history of kidney stone. He usually don't drink water much. He drinks coffee a lot. He has hx of diverticulitis and he thought the pain may be was from the diverticulitis. He feels nauseated but denies vomiting. In ED he received morphine 4mg (4x) and Dilaudid 0.5mg and states the pain medication helped him with the pain. Denies fever, dysuria, urinary frequency, urinary urgency, hematuria, vomiting, SOB, headache, dizziness, or any other additional problems. A CT scan revealed an obstructive 1 cm stone as above. He was evaluated by urology and brought to the procedure room for cystoscopy with left sided ureteral stent placement to relieve obstruction in the left ureter. Patient felt no further pain. Vital Signs Date Time Temp Pulse Resp B/P Pulse Ox O2 Delivery O2 Flow Rate FiO2 07/24/16 09:48 97 Room Air 07/24/16 08:00 36.8 67 14 110/60 07/23/16 22:49 2.0 Feeling much better. No further flank pain. No fevers. No chest pain no sob NAD AOx3, coherent & fluent speech eomi, perrl, anicteric s1 s2 rrr, no m/r/g ctab no w/r/r abd soft, nt/nd +BS, no cva tenderness no LE edema CN 2-12 grossly intact without focal deficits 1. Renal calculi with left ureteral obstruction - secondary mod hydronephrosis - s/p left stent placement - will need to follow-up with Dr. Paulson outpatient for an ESWL. - we will discharge him on 3 more days of Cipro orally - he will also be discharged on percocet prn pain - cont prazosin 2. PTSD and anxiety - cont home regimen of valium and topamax 3. asthma - stable - cont inhaler Total Time Spent: Less than 30 minutes This includes examination of the patient, discharge planning, medication reconciliation, and communication with other providers. Discharge Instructions Please refer to the electronic Patient Visit Report (Discharge Instructions) for additional information. Additional Copies To Angel Major M.D.
[2016-07-24] MEDS ORDERED: CPR500 PO (14:09)
--- NOTE | 2016-07-24 14:10 | Discharge Instructions ---
Discharge Instructions Admission Reason for Admission: Renal Colic On Left Side Discharge Discharge Diagnosis / Problem: left renal stone Discharge Goals Goal(s): Decrease discomfort Activity Recommendations Activity Limitations: resume your previous activity . Current Hospital Diet Patient's current hospital diet: Regular Diet Discharge Diet Recommended Diet: Regular Diet, N/A (2-3L Fluid intake) Procedures Procedures Performed: Cystoscopy, Left Ureteral Stent Insertion Pending Studies Studies pending at discharge: no Medical Emergencies . Who to Call and When: Medical Emergencies: If at any time you feel your situation is an emergency, please call 911 immediately. . Non-Emergent Contact Non-Emergency issues call your: Primary Care Provider . . "Provider Documentation" section prepared by Jaquelin Vargas. VTE Core Measure Inpt VTE Proph given/why not?: Treatment not indicated
[2016-07-24] MEDS ORDERED: OXYC-57 PO ×2 (14:13→14:14)
[2016-07-29] MEDS ORDERED: LANS15CA6 PO (13:35)
[2016-07-29] MEDS ORDERED: OMEG10007 PO (13:35)
[2016-07-29] MEDS ORDERED: ASCA500 PO (13:35)
[2016-07-29] MEDS ORDERED: FEXO5TAB2 PO (13:35)
[2016-07-29] MEDS ORDERED: MULT-506 PO (13:35)
[2016-07-29] MEDS ORDERED: ACET-1256 PO (13:35)
[2016-07-29] MEDS ORDERED: CALC600T9 PO (13:35)
[2016-08-07] MEDS ORDERED: FEXO1TAB54 PO (10:42)
[2016-08-07] MEDS ORDERED: FLUT0.15 NAE (10:42)
[2016-08-07] MEDS ORDERED: TOPI50TA24 PO (10:42)
[2016-08-07] MEDS ORDERED: VALA500T60 PO (10:42)
[2016-08-07] MEDS ORDERED: PSEU60TA80 PO (10:42)
[2016-08-07] MEDS ORDERED: MIRA100T PO (10:42)
[2016-08-07] MEDS ORDERED: OXYC-57 PO (10:43)
[2016-08-09] MEDS ORDERED: OXYC-57 PO (09:46)
== END 2016-07-24 17:00 | disposition home or self-care (01) | DRG 694 ==
LOC: ENRESERVTM → ENRESERVDT → C.EDB 12:26 → C.MSW 16:18
PROVIDERS: ADMIT Hospitalist; ATTEND Internal Medicine
PROC: 0T778DZ Dilation of Left Ureter with Intraluminal Device, Via Natural or Artificial Opening Endoscopic (ICD-10-PCS; principal; 2016-07-23 19:30)
PROC: BT1F0ZZ Fluoroscopy of Left Kidney, Ureter and Bladder using High Osmolar Contrast (ICD-10-PCS; principal; 2016-07-23 19:30)
DX: N13.2 Hydronephrosis with renal and ureteral calculous obstruction (principal); K59.00 Constipation, unspecified; J45.909 Unspecified asthma, uncomplicated; F43.10 Post-traumatic stress disorder, unspecified; F41.9 Anxiety disorder, unspecified; E66.9 Obesity, unspecified; Z68.31 Body mass index [BMI] 31.0-31.9, adult; Z87.891 Personal history of nicotine dependence; Z79.51 Long term (current) use of inhaled steroids; Z79.899 Other long term (current) drug therapy

== ENCOUNTER → 2016-08-01 | Outpatient (CLI) | payer BC ==
[~2016-08-01] MED LIST changes: +ACET-1256 PO; +ADVIN50/60 INH; -ALLDSR/24 PO; +AMINTAB13 PO; +ASCA500 PO; +ASCO100C2 PO; +ATV/1 PO; +CALC600T9 PO; +CEPH-571 PO; -CMBIN INH; +CPR500 PO; +DIAZ5TAB PO; +FEXO1TAB54 PO; +FEXO5TAB2 PO; +FLUT0.15 NAE; -FLVHFAUNK; +LDDP5 TD; +MILK150C PO; +MIRA100T PO; +MULT-506 PO; +NITR100C41 PO; +OMEG10007 PO; +OXYC-57 PO; +PRAZ1CAP10 PO; +PSEU60TA80 PO; +RXC5 PO; +SPCCR30 TOP; +ST J150T PO; -T3; -T4; +TOPI50TA16 PO; +TOPI50TA24 PO; +VALA500T60 PO; +XRL10 PO
--- NOTE | 2016-08-01 18:36 | DIAGNOSTIC IMAGING REPORT ---
KUB CLINICAL HISTORY: N20.0 Nephrolithiasis COMPARISON STUDY: 07/24/2016 FINDINGS: There is no pathologic bowel dilatation. There is moderate stool within the right colon. There is a left-sided double pigtail nephroureteral stent. There is an 11 mm lower pole left renal calculus. IMPRESSION: 1. Left-sided nephrolithiasis 2. Indwelling double-pigtail left-sided nephroureteral stent Electronically signed by: Nabeel Lyn M.D. 08/01/2016 6:34 PM Dictated Date/Time: 08/01/2016 6:33 PM
== END | disposition home or self-care (01) ==
LOC: C.RAD 17:32
PROVIDERS: ATTEND Urology
DX: N20.0 Calculus of kidney (principal)

== ENCOUNTER → 2016-08-08 | Outpatient (CLI) | payer BC ==
[~2016-08-08] MED LIST changes: -ACET-1256 PO; -ASCA500 PO; -CALC600T9 PO; -CPR500 PO; -DIAZ5TAB PO; -FEXO5TAB2 PO; -OMEG10007 PO; -SPCCR30 TOP
--- NOTE | 2016-08-08 19:38 | DIAGNOSTIC IMAGING REPORT ---
KUB CLINICAL HISTORY: Nephrolithiasis. FINDINGS: 2 AP abdominal radiographs are compared to study dated 08/01/2016 and correlated with abdominal CT dated 07/23/2016. A left ureteral stent is unchanged in position. No calcifications are seen along the course of the stent. A 12 mm calculus is again seen projecting over the lower pole of the left kidney. A tiny right renal calculus is observed. There is a nonobstructed abdominal bowel gas pattern. The bony structures appear intact. IMPRESSION: 1. A left ureteral stent is unchanged in position. No calcifications are seen along the course of the stent. 2. A 12 mm calculus projecting over the lower pole of the left kidney is unchanged in position. 3. A small right renal calculus is suspected. Electronically signed by: Jamin Bassett M.D. 08/08/2016 7:37 PM Dictated Date/Time: 08/08/2016 7:35 PM
== END | disposition home or self-care (01) ==
LOC: C.RAD 18:37
PROVIDERS: ATTEND Urology
DX: N20.0 Calculus of kidney (principal)

== ENCOUNTER → 2016-08-09 | Day surgery (SDC) | payer BC ==
[2016-08-07 10:43] VITALS: Ht 188 cm; Wt 109.1 kg
[~2016-08-09] VITALS: Ht 188 cm; Wt 109.1 kg
[~2016-08-09] MED LIST changes: +ATROPINE SULFATE 0.1 MG/ML 5ML SYR IV PRN; +CIPROFLOXACIN 400MG / D5W IV SCH; +DEXAMETHASONE SOD INJ 4 MG/ML VIAL ONE; +EpHEDrine SULFATE INJ 50 MG/ML AMP IV PRN; +FENTANYL CITRATE INJ 50 MCG/1 ML 2 ML VIAL ONE; +LACTATED RINGER'S 1000ML 1,000 ML IV SCH; +LIDOCAINE HCL 2% 2 ML VIAL (20MG/ML) ONE; +MIDAZOLAM HCL 1 MG/ML 2ML VIAL ONE; +ONDANSETRON INJ 2 MG/ML 2 ML VIAL ONE; +PROPOFOL IV EMULSION 10 MG/ML 20 ML VIAL IV ONE
--- NOTE | 2016-08-09 08:28 | History & Physical Bridge - SC ---
H&P Re-Evaluation Bridge Note: I have examined the patient, reviewed the History & Physical and in the interval since the performance of the History & Physical I have noted the following changes of clinical significance: No changes noted
--- NOTE | 2016-08-09 09:24 | [facility] Post Operative Brief Note ---
Immediate Operative Summary Operative Date Aug 09, 2016. Pre-Operative Diagnosis Left Renal Stone Post-Operative Diagnosis Same Procedure(s) Performed Left Extracorporeal Shock Wave Lithotripsy Surgeon Dr. Paulson [facility] Personnel Director Surgeon(s) None Estimated Blood Loss 0 Specimens None Disposition Recovery Room / PACU
--- NOTE | 2016-08-09 09:25 | Discharge Instructions-SurgCtr ---
Discharge Instructions Visit Reason for Visit: Stones Discharge Goals Goal(s): Decrease discomfort, Increase independence, Improve disease control Medications Stopped Medications Name(s): Fish oil and aspirin. Last dose 07/22/16. Activity Recommendations Activity Limitations: per Instructions/Follow-up section (no driving on narcotics) Anesthesia . Post Anesthesia Instructions: If you have had General Anesthesia or IV Sedation: * Do not drive today. * Resume driving when surgeon permits. * Do not make important decisions or sign legal documents today. * Call surgeon for: 1. Temperature elevations greater than 101 degrees F. 2. Uncontrollable pain. 3. Excessive bleeding. 4. Persistent nausea and vomiting. 5. Medication intolerance (nausea, vomiting or rash). * For nausea and vomiting use only clear liquids such as: tea, soda, bouillon until nausea subsides, then gradually increase diet as tolerated. * If you have any concerns or questions, call your surgeon's office. If physician is unavailable and it is an emergency, call 911 or go to the nearest emergency room. . Diet Recommendations Home Diet: resume previous diet Procedures Procedures Performed: Left Extracorporeal Shock Wave Lithotripsy Medical Emergencies . Who to Call and When: Medical Emergencies: If at any time you feel your situation is an emergency, please call 911 immediately. . Non-Emergent Contact . . "Provider Documentation" section prepared by Joshua Paulson.
--- NOTE | 2016-08-09 09:48 | Anesthesia Progress Nt - [facility] ---
Anesthesia Post Op Note Date & Time Aug 09, 2016 at 09:48 Vital Signs Pain Intensity: 0 Vital Signs Past 12 Hours Date Time Temp Pulse Resp B/P Pulse Ox O2 Delivery O2 Flow Rate FiO2 08/09/16 09:15 36.9 65 12 112/77 100 Diffusion Mask 6 08/09/16 07:17 36.9 71 16 121/78 99 Room Air Notes Mental Status: alert / awake / arousable, participated in evaluation Pt Amnestic to Procedure: Yes Nausea / Vomiting: adequately controlled Pain: adequately controlled Airway Patency, RR, SpO2: stable & adequate BP & HR: stable & adequate Hydration State: stable & adequate Anesthetic Complications: no major complications apparent
[2016-08-09 09:57] VITALS: TEMP 37.1
[2016-08-09 10:31] VITALS: BP 118/72; PULSE 52; O2SAT 100
--- NOTE | 2016-08-09 12:11 | OPERATIVE REPORT ---
DATE OF OPERATION: 08/09/2016 PREOPERATIVE DIAGNOSIS: Left renal stone. POSTOPERATIVE DIAGNOSIS: Same. PROCEDURE: Left ESWL. SURGEON: Dr. Paulson. ANESTHESIA: General. INDICATIONS: The patient is a 51-year-old male status post left stent placement for significant pain from a 1 x 0.2 cm left UPJ stone. The patient has had a cold and was canceled for a week and now presents for definitive procedure. DESCRIPTION OF THE PROCEDURE: The patient was taken to the operating room with Venodyne stockings and preoperative antibiotics. He was placed in the supine position. The stone was visualized in 2 views and he received 2500 shocks, the majority at level 5. The stone clearly fragmented. It was hard to tell how small the smallest fragments for but it spread out during the course of the procedure. He was transferred to the recovery room in stable condition. I attest to the content of the Intraoperative Record and any orders documented therein. Any exceptio ns are noted below.
== END | disposition home or self-care (01) ==
LOC: X.SURG 06:58
PROVIDERS: ATTEND Urology
DX: N20.0 Calculus of kidney (principal); J45.909 Unspecified asthma, uncomplicated; K20.9 Esophagitis, unspecified; K21.9 Gastro-esophageal reflux disease without esophagitis; J30.9 Allergic rhinitis, unspecified; Z86.010 Personal history of colon polyps; F43.10 Post-traumatic stress disorder, unspecified

== ENCOUNTER → 2016-08-13 | Outpatient (CLI) | payer BC ==
[~2016-08-13] MED LIST changes: -ATROPINE SULFATE 0.1 MG/ML 5ML SYR IV PRN; -CIPROFLOXACIN 400MG / D5W IV SCH; -DEXAMETHASONE SOD INJ 4 MG/ML VIAL ONE; -EpHEDrine SULFATE INJ 50 MG/ML AMP IV PRN; -FENTANYL CITRATE INJ 50 MCG/1 ML 2 ML VIAL ONE; -LACTATED RINGER'S 1000ML 1,000 ML IV SCH; -LIDOCAINE HCL 2% 2 ML VIAL (20MG/ML) ONE; -MIDAZOLAM HCL 1 MG/ML 2ML VIAL ONE; -ONDANSETRON INJ 2 MG/ML 2 ML VIAL ONE; -PROPOFOL IV EMULSION 10 MG/ML 20 ML VIAL IV ONE
--- NOTE | 2016-08-13 13:32 | DIAGNOSTIC IMAGING REPORT ---
KUB HISTORY: NEPHROLITHIASIS COMPARISON: KUB 08/08/2016. FINDINGS: The bowel gas pattern is unremarkable. There are no dilated loops of small bowel to suggest an obstruction. Left ureteral stent is unchanged in position. Interval fragmentation of the dominant stone within the left kidney. Clustered stones fragments within the lower pole of the left kidney with the largest measuring 7 mm. There are few punctate stone fragments within the proximal left ureter/ureteropelvic junction. Stable 3 mm stone within the right kidney. No right ureteral calculi. No pneumoperitoneum or pneumatosis. IMPRESSION: 1. Interval fragmentation of the dominant stone within the left kidney. There are clustered stones fragments seen within the lower pole of the left kidney and within the proximal left ureter/ureteropelvic junction. 2. Left ureteral stent appears to be in good position. 3. Stable right-sided nephrolithiasis. Electronically signed by: iTm Madrid M.D. 08/13/2016 1:31 PM Dictated Date/Time: 08/13/2016 1:28 PM
== END | disposition home or self-care (01) ==
LOC: C.RAD 12:55
PROVIDERS: ATTEND Urology
DX: N20.0 Calculus of kidney (principal)

== ENCOUNTER → 2016-08-16 | Outpatient (CLI) | payer BC ==
[2016-08-16 18:54] LABS: BASO % 0.6 %; BASO ABS # 0.05 K/uL (0-0.2); COMPLETE YES; EOS % 7.6 %; HEMATOCRIT 39.5 % (42-52); IG% 0.2 %; LYMPH ABS # 2.35 K/uL (1.2-3.4); MEAN CELL VOLUME 90.8 fL (80-100); MEAN CORPUSCULAR HEMOGLOBIN 31.3 pg (25-34); MEAN CORPUSCULAR HGB CONC 34.4 g/dl (32-36); MEAN PLATELET VOLUME 8.9 fL (7.4-10.4); MONO % 12.8 %; NEUT % 49.8 %; PLATELET COUNT 323 K/uL (130-400); RED BLOOD COUNT 4.35 M/uL (4.7-6.1); WHITE BLOOD COUNT 8.11 K/uL (4.8-10.8)
[2016-08-16 19:15] LABS: BLOOD UREA NITROGEN 17 mg/dl (7-18); BUN/CREATININE RATIO 15.6 (10-20); CARBON DIOXIDE 26 mmol/L (21-32); CHLORIDE 111 mmol/L (98-107); POTASSIUM 3.6 mmol/L (3.5-5.1); SODIUM 144 mmol/L (136-145)
== END | disposition home or self-care (01) ==
LOC: C.LAB 18:32
PROVIDERS: ATTEND Urology
DX: N20.0 Calculus of kidney (principal)

== ENCOUNTER → 2016-08-23 | Day surgery (SDC) | payer BC ==
[2016-08-21 13:50] VITALS: Ht 188 cm; Wt 109.1 kg
[~2016-08-23] VITALS: Ht 188 cm; Wt 109.1 kg
[~2016-08-23] MED LIST changes: +ATROPINE SULFATE 0.1 MG/ML 5ML SYR IV PRN; +CIPROFLOXACIN 400MG / D5W IV SCH; +DEXAMETHASONE SOD INJ 4 MG/ML VIAL IV PRN; +DEXAMETHASONE SOD INJ 4 MG/ML VIAL ONE; +EpHEDrine SULFATE INJ 50 MG/ML AMP IV PRN; +FENTANYL CITRATE INJ 50 MCG/1 ML 2 ML VIAL IV PRN; +FENTANYL CITRATE INJ 50 MCG/1 ML 2 ML VIAL ONE; +KETOROLAC TROMETHAMINE 30 MG/ML VIAL IV. PRN; +LABETALOL HCL IV 5 MG/ML 20ML IV PRN; +LIDOCAINE HCL 2% 2 ML VIAL (20MG/ML) ONE; +METOCLOPRAMIDE HCL INJ 5 MG/ML 2 ML VIAL IV PRN; +MIDAZOLAM HCL 1 MG/ML 2ML VIAL ONE; +MoRPHine SULFATE 10 MG/ML CARP/VIAL IV PRN; +ONDANSETRON INJ 2 MG/ML 2 ML VIAL IV PRN; +ONDANSETRON INJ 2 MG/ML 2 ML VIAL ONE; +OXYCODONE/ACETAMINOPHEN 5-325 TAB PO PRN; +PHENYLEPHRINE 100MCG/ML 5ML SYR IV PRN; +PROPOFOL IV EMULSION 10 MG/ML 20 ML VIAL IV ONE; +SODIUM CHLORIDE 0.9% 1000ML 1,000 ML IV SCH; +TAMSULOSIN HCL 0.4 MG CAP PO SCH
--- NOTE | 2016-08-23 08:54 | DIAGNOSTIC IMAGING REPORT ---
KUB CLINICAL HISTORY: Nephrolithiasis. FINDINGS: 2 AP supine abdominal radiographs are compared to study dated 08/13/2016 and correlated with abdominal CT dated 07/23/2016. A left ureteral stent is unchanged in position. No calcifications are seen along the course of the stent. A 10 mm calculus or cluster of calculi is again seen projecting over the lower pole of the left kidney. An additional 5 mm left lower pole calculus is noted. No right renal calculi are seen in the right renal shadow was largely obscured by overlying colonic contents. There is a nonobstructed abdominal bowel gas pattern. The bony structures appear intact. IMPRESSION: 1. A left ureteral stent is unchanged in position. No calcifications are seen along the course of the stent. 2. A 10 mm calculus or cluster of calculi is again seen projecting over the lower pole of left kidney. 3. There is an additional 5 mm left lower pole calculus. No right renal calculi are identified and the right renal shadow was largely obscured. Electronically signed by: Jamin Bassett M.D. 08/23/2016 8:52 AM Dictated Date/Time: 08/23/2016 8:50 AM
[2016-08-23] MEDS: LACTATED RINGER'S 1000ML 1,000 ML IV SCH ×2 (10:42→10:46)
--- NOTE | 2016-08-23 11:39 | Discharge Instructions-SurgCtr ---
Discharge Instructions Date of Service Aug 23, 2016. Visit Reason for Visit: Stones Discharge Discharge Diagnosis / Problem: treat stones Discharge Goals Goal(s): Decrease discomfort, Improve function, Increase independence, Improve disease control Medications Stopped Medications Name(s): D/C'DISH OIL 07/22/16. Activity Recommendations Activity Limitations: resume your previous activity Lifting Limitations: none Exercise/Sports Limitations: none May Resume Sexual Activity: after one week Shower/Bathe: no limitations Driving or Machine Use: no limitations Anesthesia . Post Anesthesia Instructions: If you have had General Anesthesia or IV Sedation: * Do not drive today. * Resume driving when surgeon permits. * Do not make important decisions or sign legal documents today. * Call surgeon for: 1. Temperature elevations greater than 101 degrees F. 2. Uncontrollable pain. 3. Excessive bleeding. 4. Persistent nausea and vomiting. 5. Medication intolerance (nausea, vomiting or rash). * For nausea and vomiting use only clear liquids such as: tea, soda, bouillon until nausea subsides, then gradually increase diet as tolerated. * If you have any concerns or questions, call your surgeon's office. If physician is unavailable and it is an emergency, call 911 or go to the nearest emergency room. . Instructions / Follow-Up Instructions / Follow-Up Please keep your previously scheduled follow up appointment Diet Recommendations Home Diet: no limitations, resume previous diet Pending Studies Studies pending at discharge: no Medical Emergencies . Who to Call and When: Medical Emergencies: If at any time you feel your situation is an emergency, please call 911 immediately. . Non-Emergent Contact Non-Emergency issues call your: Urologist Call Non-Emergent contact if: you have a fever, temperature is above 101.5, your pain is not controlled, your pain is worsening . . "Provider Documentation" section prepared by Filiberto Linares.
--- NOTE | 2016-08-23 12:22 | [facility] Post Operative Brief Note ---
Immediate Operative Summary Operative Date Aug 23, 2016. Pre-Operative Diagnosis Left Renal Calculi Post-Operative Diagnosis Same Procedure(s) Performed Left Extracorporeal Shock Wave Lithotripsy, Repeat Surgeon Dr. Balderas Hvac Mechanical Engineer Surgeon(s) None Estimated Blood Loss 0 mL Findings L renal stones; appeared to fragment appropriately Specimens None Drains none Anesthesia gen Complication(s) None Disposition Recovery Room / PACU (stable)
--- NOTE | 2016-08-23 13:10 | Anesthesia Progress Nt - [facility] ---
Anesthesia Post Op Note Date & Time Aug 23, 2016 at 13:11 Vital Signs Pain Intensity: 0 Vital Signs Past 12 Hours Date Time Temp Pulse Resp B/P Pulse Ox O2 Delivery O2 Flow Rate FiO2 08/23/16 13:01 121/70 08/23/16 12:58 52 7 08/23/16 12:58 53 7 98 08/23/16 12:56 126/75 08/23/16 12:54 36.8 66 12 117/72 100 Room Air 08/23/16 12:53 57 9 100 08/23/16 12:53 56 9 08/23/16 12:51 117/72 08/23/16 12:48 59 9 08/23/16 12:48 57 9 100 08/23/16 12:47 55 3 08/23/16 12:47 56 3 100 08/23/16 12:46 118/74 08/23/16 12:42 59 3 08/23/16 12:42 59 3 100 08/23/16 12:41 115/73 08/23/16 12:37 62 15 08/23/16 12:37 61 15 100 08/23/16 12:36 115/71 08/23/16 12:35 58 11 100 08/23/16 12:35 58 11 08/23/16 12:31 115/74 08/23/16 12:30 65 13 08/23/16 12:30 64 13 100 08/23/16 12:26 118/79 08/23/16 12:25 70 08/23/16 12:25 70 99 08/23/16 12:25 36.6 71 12 118/79 99 Diffusion Mask 6 08/23/16 10:04 36.4 66 16 123/71 98 Room Air Notes Mental Status: alert / awake / arousable, participated in evaluation Pt Amnestic to Procedure: Yes Nausea / Vomiting: adequately controlled Pain: adequately controlled Airway Patency, RR, SpO2: stable & adequate BP & HR: stable & adequate Hydration State: stable & adequate Anesthetic Complications: no major complications apparent
[2016-08-23 13:34] VITALS: BP 127/81; PULSE 74; O2SAT 100
--- NOTE | 2016-08-25 11:37 | OPERATIVE REPORT ---
DATE OF OPERATION: 08/23/2016 PREOPERATIVE DIAGNOSIS: Left renal calculi. POSTOPERATIVE DIAGNOSIS: Left renal calculi. PROCEDURE PERFORMED: Left extracorporeal shockwave lithotripsy. ANESTHESIA: General. ESTIMATED BLOOD LOSS: 0. URINE OUTPUT: Not recorded. SPECIMENS: There were no specimens. DRAINS: There were no drains. DESCRIPTION OF THE PROCEDURE: Jf Butterfield was identified in the preoperative holding area. Appropriate informed consents were reviewed and completed and the patient was transported to the operating suite. He received appropriate preoperative antibiotics in the form of ciprofloxacin and adequate general anesthesia. He was placed in the supine position and the renal stones were localized under fluoroscopy. Lithotripsy was commenced with a total of 2500 shocks delivered to the stones. At the conclusion of the case, the patient was extubated and taken to the PACU in stable condition. There were no complications. Further details can be found on the [facility] Information Sheet. I attest to the content of the Intraoperative Record and any orders documented therein. Any exceptio ns are noted below.
== END | disposition home or self-care (01) ==
LOC: X.SURG 09:44
PROVIDERS: ATTEND Urology
DX: N20.0 Calculus of kidney (principal); J45.909 Unspecified asthma, uncomplicated; K21.9 Gastro-esophageal reflux disease without esophagitis; F43.10 Post-traumatic stress disorder, unspecified; Z80.42 Family history of malignant neoplasm of prostate; Z79.899 Other long term (current) drug therapy

== ENCOUNTER 2016-08-25 00:43 | Inpatient (IN) | payer BC, OTHER ==
[~2016-08-25] VITALS: Ht 188 cm; Wt 110.0 kg
[~2016-08-25 00:43] MED LIST changes: -AMINTAB13 PO; -ASCO100C2 PO; -ATROPINE SULFATE 0.1 MG/ML 5ML SYR IV PRN; -CEPH-571 PO; -CIPROFLOXACIN 400MG / D5W IV SCH; -DEXAMETHASONE SOD INJ 4 MG/ML VIAL IV PRN; -DEXAMETHASONE SOD INJ 4 MG/ML VIAL ONE; -EpHEDrine SULFATE INJ 50 MG/ML AMP IV PRN; -FENTANYL CITRATE INJ 50 MCG/1 ML 2 ML VIAL IV PRN; -FENTANYL CITRATE INJ 50 MCG/1 ML 2 ML VIAL ONE; -KETOROLAC TROMETHAMINE 30 MG/ML VIAL IV. PRN; -LABETALOL HCL IV 5 MG/ML 20ML IV PRN; -LDDP5 TD; -LIDOCAINE HCL 2% 2 ML VIAL (20MG/ML) ONE; -METOCLOPRAMIDE HCL INJ 5 MG/ML 2 ML VIAL IV PRN; -MIDAZOLAM HCL 1 MG/ML 2ML VIAL ONE; -MILK150C PO; -MULT-506 PO; -MoRPHine SULFATE 10 MG/ML CARP/VIAL IV PRN; -NITR100C41 PO; -ONDANSETRON INJ 2 MG/ML 2 ML VIAL IV PRN; -ONDANSETRON INJ 2 MG/ML 2 ML VIAL ONE; -OXYCODONE/ACETAMINOPHEN 5-325 TAB PO PRN; -PHENYLEPHRINE 100MCG/ML 5ML SYR IV PRN; -PROPOFOL IV EMULSION 10 MG/ML 20 ML VIAL IV ONE; -RXC5 PO; -SODIUM CHLORIDE 0.9% 1000ML 1,000 ML IV SCH; -ST J150T PO; -TAMSULOSIN HCL 0.4 MG CAP PO SCH; -TOPI50TA16 PO; -XRL10 PO
[2016-08-25] MEDS ORDERED: FENTANYL CITRATE INJ 50 MCG/1 ML 2 ML VIAL IV STA (01:03)
[2016-08-25] MEDS ORDERED: FENTANYL CITRATE INJ 50 MCG/1 ML 2 ML VIAL ONE (01:04)
[2016-08-25 01:26] LABS: ISTAT CREATININE 1.2 mg/dl (0.6-1.3); ISTAT HEMOGLOBIN 14.3 g/dl (14.0-18.0); ISTAT IONIZED CALCIUM 1.13 mmol/l (1.12-1.32)
--- NOTE | 2016-08-25 01:35 | EMERGENCY ROOM VISIT NOTE ---
History Report prepared by Manoj: Jaron Finch Under the Supervision of: Dr. Venita Prieto D.O. First contact with patient: 00:56 Chief Complaint: FALL Stated Complaint: FALL - SIDE/CHEST PAIN, LITHOTRIPSY DONE YESTERDAY History of Present Illness The patient is a 51 year old male who presents to the Emergency Room with complaints of shortness of breath that started about 4 to 5 hours ago. The patient fell 20-30 feet through a barn floor and landed on his back on 5-7 feet of a bedding of hay and manure that was on top of concrete. The patient could not catch his breath for a minute after the fall. He currently complains of chest pain and neck pain at the base of his head. The patient notes his discomfort is excruciating with movement, but manageable when he is sitting straight up and still. He had a lithotripsy done yesterday and an ureteral stent placed 3 weeks ago for kidney stones. Currently, he notes there is only blood coming from the stent. The patient denies back pain or abdominal pain at this time. He did not take any pain medications today. Source of History: patient Onset: 4-5 hours ago Position: other (global) Symptom Intensity: excruciating (with movement) Timing: other (persistent) Modifying Factors (Worsening): movement Associated Symptoms: + chest pain, + neck pain, No abdominal pain, No back pain Review of Systems See HPI for pertinent positives & negatives. A total of 10 systems reviewed and were otherwise negative. Past Medical & Surgical Medical Problems: (1) Allergic rhinitis (2) Asthma (3) Bilateral pulmonary contusion (4) blocked ureteral stent (5) GERD (gastroesophageal reflux disease) (6) Hypertension (7) Tinea pedis Family History Cancer Diabetes mellitus Heart disease Hypertension Social History Smoking Status: Never Smoker Drug Use: none Marital Status: Housing Status: lives with significant other Occupation Status: employed Current/Historical Medications Scheduled Fexofenadine Hcl (Mago Allergy), 1 TAB PO DAILY Fluticasone Prop/Salmeterol (Advair Diskus 500/50 60 Dose), 2 PUFFS INH BID Fluticasone Propionate (Nasal) (Flonase Allergy Relief), 1 SPRAY BRIDGETT QAM Lansoprazole (Prevacid), 15 MG PO QPM Lorazepam (Ativan), 1 MG PO QPM Mirabegron (Myrbetriq Er), 25 MG PO DAILY Prazosin Hcl (Prazosin), 1 MG PO HS Topiramate (Topamax), 100 MG PO MIDDLE DAY Scheduled PRN Oxycodone HCl (Oxycodone HCl), 10 MG PO Q4H PRN for Pain Valacyclovir (Valtrex), 500 MG PO BID PRN for PRN Allergies Coded Allergies: Shellfish (Verified Allergy, Severe, ANAPHYLAXIS, 08/25/16) [place] (Verified Allergy, Severe, ANAPHYLAXIS, 08/25/16) [place] (Verified Allergy, Severe, ANAPHYLAXIS, 08/25/16) Penicillins (Verified Allergy, Unknown, UNKNOWN - HAPPENED CHILD, ) Sulfa Antibiotics (Verified Allergy, Unknown, HIVES, 08/25/16) Pantoprazole (Verified Adverse Reaction, Unknown, "NON-TOLERANT", 08/25/16) Physical Exam Vital Signs Date Time Temp Pulse Resp B/P Pulse Ox O2 Delivery O2 Flow Rate FiO2 08/25/16 03:00 76 20 128/77 99 Room Air 08/25/16 01:46 80 28 130/72 97 Room Air 08/25/16 01:27 97 08/25/16 01:08 83 08/25/16 00:49 36.9 78 22 121/83 97 Room Air Physical Exam HEENT: Head - normocephalic and atraumatic. Pupils are equal, round, and reactive to light. Extraocular eye muscles are intact and sclera are anicteric. Ears - bilaterally patent canals with no evidence of hemotympanum. Nose - moist nasal mucosa without evidence of trauma or discharge. Mouth - moist buccal mucosa with no trauma to the teeth or signs of malocclusion. Neck: The cervical collar was temporarily removed while in-line stabilization was maintained. The neck is supple and there is no pain to palpation over the posterior cervical spine and no obvious step-offs or deformities. There is no JVD or tracheal deviation. Chest: There are no signs of deformities, contusions or abrasions to the chest wall. There is pain to palpation over the right anterior inferior chest wall Heart: Regular, rate, and rhythm. There is a normal S1 and S2 with no murmurs, clicks, or gallops appreciated. Lungs: Clear to auscultation bilaterally with no wheezes, rales, or rhonchi. Abdomen: Soft, completely nontender, nondistended, with good bowel sounds. There is no sign of trauma such as contusions, abrasions or penetrations. There are no palpable pulsatile masses or hepatosplenomegaly. There is no guarding, rigidity, or rebound noted. Pelvis: Stable to rock and compression. Extremities: No obvious trauma. Neuro: The patient is awake and alert and easily able to follow commands. Muscle strength is 5 out of 5 in all 4 extremities. Otherwise, neuro exam is unremarkable. Back: The entire thoracic, lumbar, and sacral spine were palpated. There are no obvious step-offs or deformities noted. There was abrasion noted over the right scapula. Medical Decision & Procedures ER Provider Diagnostic Interpretation: Radiology results as stated below per my review and the radiologist's interpretation: CT Head: No ICH, mass effect or edema. No skull fracture. CT C SPINE: No fracture. Degenerative changes. Grade 1 anterolisthesis of C4 on C% likely degenerative. No prevertebral soft tissue swelling. CT Chest with contrast: Mild bibasilar lung atelectasis/contusions. No pleural effusion or pneumothorax. Cardiovascular structures intact. Osseous structures intact. CT Abdomen & Pelvis: Compare with 07/23/16 Streak artifact from arms at side. Right L2 transverse process fracture. No evidence of solid organ injury. No free air or free fluid. Incidental: Interval placement of left nephroureteral stent. Moderate left hydronephrosis. Mild left perinephric and periureteral stranding with enhancement of the renal pelvis may be worrisome infection and stent malfunction. Nonobstructive bilateral renal stones. Small bilateral fat-containing inguinal hernias. Chest X-Ray: No pneumothorax, no pulmonary infiltrate, narrow mediastinum. Laboratory Results Test 08/25/16 01:13 Bedside Hemoglobin 14.3 g/dl (14.0-18.0) Bedside Hematocrit 42 % (42-52) Bedside Sodium 139 mEq/L (135-144) Bedside Potassium 4.1 mEq/L (3.3-5.0) Bedside Chloride 106 mEq/L (101-112) Bedside Total CO2 19 mEq/l (24-31) Bedside Blood Urea Nitrogen 19 mg/dl (7-18) Bedside Creatinine 1.2 mg/dl (0.6-1.3) Bedside Glucose (other) 112 mg/dl (70-99) Bedside Ionized Calcium (Diego) 1.13 mmol/l (1.12-1.32) Laboratory results per my review. Medications Administered Medications (Trade) Dose Ordered Sig/Mikel Route Start Time Stop Time Status Last Admin Dose Admin Fentanyl Citrate (Fentanyl Inj) 100 mcg NOW STAT IV 08/25/16 01:03 08/25/16 01:07 DC 08/25/16 01:12 100 MCG Morphine Sulfate (MoRPHine SULFATE INJ) 4 mg NOW STAT IV 08/25/16 02:06 08/25/16 02:07 DC 08/25/16 02:12 4 MG Ondansetron HCl (Zofran Inj) 4 mg NOW STAT IV 08/25/16 02:06 08/25/16 02:07 DC 08/25/16 02:11 4 MG Procedure Fentanyl Inj IV Zofran Inj IV Morphine Sulfate IV ED Course 0058: Past medical records reviewed. The patient was evaluated in room A4. A complete history and physical exam was performed. An IV lock was initiated and labs were drawn as above. 0103: Ordered Fentanyl Inj 100 mcg IV. The patient went for CT scan of the head , cervical spine, chest, abdomen/pelvis. 0203: At this time, I reevaluated the patient and he was still uncomfortable. I reviewed the results of the CT scans with the patient and his . 0206: Ordered Zofran Inj 4 mg IV, Morphine Sulfate 4 mg IV. 0331: At this time, I discussed the case with Dr. Ferro - Hospitalist [facility] and he agreed to accept the patient for further evaluation. Medical Decision The patient is a 51 year old male who presents to the ED with shortness of breath. Differential diagnosis includes pneumothorax, rib fracture, pulmonary contusion, head injury, or c-spine injury. Labs reviewed by me: Glucose 112 BUN 19 Creatinine 1.2 Hemoglobin 14.3 this is a 51-year-old male patient who fell through a hay hole in his barn greater than 20 feet. This happened naproxen a 5.5 hours ago. The patient developed worsening right-sided chest discomfort and shortness of breath. He is hemodynamically stable. CT scan of his brain and cervical spine were unremarkable. CT scan of the chest was unremarkable with no obvious rib fractures or pneumothorax. There was a transverse process fracture of L2 noted and most likely an incidental finding of probable renal stent malfunction on the left. There is no free fluid to suggest an acute traumatic injury to that left kidney. I discussed the case with the [facility] Hospitalist and they will violate the patient for further management of the pulmonary contusions and have him evaluated by urology. Consults Time Called: [phone] Consulting Physician: Dr. Ferro - Hospitalist [facility] Returned Call: [phone] At this time, I discussed the case with Dr. Ferro and he agreed to accept the patient for further evaluation. Impression Primary Impression: Pulmonary contusion Additional Impressions: Fracture of transverse process of lumbar vertebra Obstructive uropathy Scribe Attestation The scribe's documentation has been prepared under my direction and personally reviewed by me in its entirety. I confirm that the note above accurately reflects all work, treatment, procedures, and medical decision making performed by me. Departure Information Dispostion Being Evaluated By Hospitalist Prescriptions Oxycodone HCl (Oxycodone HCl) 5 Mg Tab 10 MG PO Q4H Y for Pain for 20 Days, #30 TAB Prov: Fernanda Coffey PA-C 08/26/16 Referrals Angel Major M.D. (PCP) Problem Qualifiers
[2016-08-25] MEDS ORDERED: OPTIRAY 320 IV PRN (02:00)
[2016-08-25] MEDS ORDERED: ONDANSETRON INJ 2 MG/ML 2 ML VIAL IV STA (02:06)
[2016-08-25] MEDS ORDERED: MoRPHine SULFATE 4 MG/ML 1 ML CARP\\VIAL IV STA (02:06)
[2016-08-25] MEDS ORDERED: ONDANSETRON INJ 2 MG/ML 2 ML VIAL IV PRN (03:45)
[2016-08-25] MEDS ORDERED: ACETAMINOPHEN 325 MG TAB PO PRN (03:45)
[2016-08-25] MEDS ORDERED: TOPI50TA16 PO (03:59)
--- NOTE | 2016-08-25 04:18 | History and Physical ---
History & Physical Date & Time of Service: Aug 25, 2016 at 03:55 Chief Complaint: Fall - Side/Chest Pain, Lithotripsy Done Yesterday Primary Care Physician: Angel Major M.D. History of Present Illness Source: patient, spouse 51 y/o M w/Hx obstructive renal calculi, recent lithotripsy and placement of a L ureteral stent. The pt was gathering some hay in his barn when the floor gave out and he fell 25 feet onto a stack of brenton landing on his back. He presented with severe pleuritic CP. He has been having back pain related to his calculi but does not describe acute back pain. Extensive imaging revealed b /l pulmonary contusions and an acute L2 right sided transverse process fracture. Incidentally, it appears that the ureteral stent is obstructed as he has hydronephrosis, hydroureter and perinephric stranding on CT. He does describe a degree of dysuria over the last 2 days - mostly hesitancy. Past Medical/Surgical History Medical Problems: (1) Allergic rhinitis Status: Chronic (2) Asthma Status: Chronic (3) GERD (gastroesophageal reflux disease) Status: Chronic 4) PTSD Family History Cancer Diabetes mellitus Heart disease Hypertension Both parents alive - father with AF Social History Does not smoke - no alcohol for 2 years - admits to excessive use prior Owns/manages [place] with Smoking Status: Never Smoker Drug Use: none Marital Status: Occupational Status: employed Immunizations History of Influenza Vaccine: N/A History of Tetanus Vaccine?: Yes History of Pneumococcal: No History of Hepatitis B Vaccine: Unknown Multi-Drug Resistant Organisms History of MDRO: No Allergies Coded Allergies: Shellfish (Verified Allergy, Severe, ANAPHYLAXIS, 08/25/16) [place] (Verified Allergy, Severe, ANAPHYLAXIS, 08/25/16) [place] (Verified Allergy, Severe, ANAPHYLAXIS, 08/25/16) Penicillins (Verified Allergy, Unknown, UNKNOWN - HAPPENED CHILD, ) Sulfa Antibiotics (Verified Allergy, Unknown, HIVES, 08/25/16) Pantoprazole (Verified Adverse Reaction, Unknown, "NON-TOLERANT", 08/25/16) Home Medications Scheduled Fexofenadine Hcl (Mago Allergy), 1 TAB PO DAILY Fluticasone Prop/Salmeterol (Advair Diskus 500/50 60 Dose), 2 PUFFS INH BID Fluticasone Propionate (Nasal) (Flonase Allergy Relief), 1 SPRAY BRIDGETT QAM Lansoprazole (Prevacid), 15 MG PO QPM Lorazepam (Ativan), 1 MG PO QPM Mirabegron (Myrbetriq Er), 25 MG PO DAILY Prazosin Hcl (Prazosin), 1 MG PO HS Pseudoephedrine-Guaifenesin (Mucinex D), 60 MG PO BID Topiramate (Topamax), 100 MG PO MIDDLE DAY Scheduled PRN Oxycodone/Acetaminophen 5MG/325MG (Percocet 5MG/325MG), 0.5 TABLET PO Q6H PRN for Pain Valacyclovir (Valtrex), 500 MG PO BID PRN for PRN Review of Systems Constitutional: No chills, No fever, No sweats Eyes: No eye pain, No worsening of vision ENT: No hearing loss, No nasal symptoms, No unusual epistaxis Respiratory: + shortness of breath (due to splinting), No cough, No sputum, No wheezing Cardiovascular: + chest pain (b/l ) Abdomen: No nausea, No pain, No vomiting Musculoskeletal: + problem reported (L back pain) Neurologic: No memory loss, No paralysis, No weakness Psychiatric: No depression symptoms Endocrine: No fatigue Hematologic / Lymphatic: No abnormal bleeding/bruising Integumentary: No rash Allergic / Immunologic: No environmental allergies Physical Exam Vital Signs Date Time Temp Pulse Resp B/P Pulse Ox O2 Delivery O2 Flow Rate FiO2 08/25/16 03:00 76 20 128/77 99 Room Air 08/25/16 01:46 80 28 130/72 97 Room Air 08/25/16 01:27 97 08/25/16 01:08 83 08/25/16 00:49 36.9 78 22 121/83 97 Room Air General Appearance: WD/WN, no apparent distress Head: normocephalic Eyes: normal inspection, PERRL, EOMI ENT: normal ENT inspection, pharynx normal Neck: supple, no JVD Respiratory/Chest: + pertinent finding (Exam is very limited as he cannot take a deap breath - there are no audible crackles/wheezing - there is minimal chest wall tenderness) Cardiovascular: regular rate, rhythm, no edema, no gallop, no JVD, no murmur, normal peripheral pulses Abdomen/GI: normal bowel sounds, non tender, soft Back: no CVA tenderness (L - difficulty sitting up at present) Extremities/Musculoskelatal: normal inspection, no calf tenderness, normal capillary refill, no pedal edema, normal range of motion 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, no motor/sensory deficits, alert, normal mood/affect, normal reflexes, oriented x 3 Skin: normal color, warm/dry, no rash Diagnostics Laboratory Results Results Past 24 Hours Test 08/25/16 01:13 08/25/16 03:37 Range/Units Bedside Hemoglobin 14.3 14.0-18.0 g/dl Bedside Hematocrit 42 42-52 % Bedside Sodium 139 135-144 mEq/L Bedside Potassium 4.1 3.3-5.0 mEq/L Bedside Chloride 106 101-112 mEq/L Bedside Total CO2 19 24-31 mEq/l Anion Gap 19.0 16-25 mmol/L Bedside Blood Urea Nitrogen 19 7-18 mg/dl Bedside Creatinine 1.2 0.6-1.3 mg/dl Bedside Glucose (other) 112 70-99 mg/dl Bedside Ionized Calcium (Diego) 1.13 1.12-1.32 mmol/l Diagnostic Radiology CT chest/abd B/L basilar pulmonary contusions. Fracture of transverse process of L2 L ureteral stent with evidence of obstruction and infection - hydroureter, hydronephrosis, stranding Impression Assessment and Plan 51 y/o M w/Hx obstructive renal calculi, recent lithotripsy and placement of a L ureteral stent. The pt was gathering some hay in his barn when the floor gave out and he fell 25 feet onto a stack of brent[place] landing on his back. He presented with severe pleuritic CP. He has been having back pain related to his calculi but does not describe acute back pain. Extensive imaging revealed b /l pulmonary contusions and an acute L2 right sided transverse process fracture. Incidentally, it appears that the ureteral stent is obstructed as he has hydronephrosis, hydroureter and perinephric stranding on CT. He does describe a degree of dysuria over the last 2 days - mostly hesitancy. 1) Pulmonary contusions - pain control - monitor 02 sat on telemetry 2) Ureteral stent obstruction - no clinical evidence of acute infection - Urology consulted - IVF, pain control, will start antibiotics pending UA and culture results due to CT findings 3) Asthma - cintinue inhalers and PRN nebs if unable to use due to chest pain 4) PTSD - takes daily Topamax for this purpose 5) Vertebral fracture - ortho spine consulted for recommendations Full code - SCDs only due to fall Total time for this admit including review of labs, meds, imaging - discussion with ER MD and Pt/ - 33 min VTE Prophylaxis VTE Risk Assessment Done? Y/N: Yes Risk Level: Low
[2016-08-25 04:31] VITALS: BP 123/78; PULSE 76; TEMP 36.7; O2SAT 97
[2016-08-25] MEDS: HYDROmorphone INJ 2 MG/ML SYR/VIAL IV PRN ×2 (04:41→08:05)
[2016-08-25] MEDS: D5W AND NSS 1,000 ML IV SCH ×2 (04:41→12:50)
[2016-08-25 04:54] VITALS: BP 123/78; PULSE 76; TEMP 36.7; Ht 188 cm; Wt 110.0 kg
[2016-08-25 05:29] LABS: HEMATOCRIT 37.8 % (42-52); MEAN CELL VOLUME 91.1 fL (80-100); MEAN CORPUSCULAR HEMOGLOBIN 30.8 pg (25-34); MEAN CORPUSCULAR HGB CONC 33.9 g/dl (32-36); PLATELET COUNT 300 K/uL (130-400); RED BLOOD COUNT 4.15 M/uL (4.7-6.1); WHITE BLOOD COUNT 12.24 K/uL (4.8-10.8)
[2016-08-25 05:54] LABS: BUN/CREATININE RATIO 15.4 (10-20); CALCIUM 8.4 mg/dl (8.5-10.1); CREATININE 1.1 mg/dl (0.60-1.40); POTASSIUM 3.8 mmol/L (3.5-5.1)
--- NOTE | 2016-08-25 06:33 | DIAGNOSTIC IMAGING REPORT ---
CHEST ONE VIEW PORTABLE CLINICAL HISTORY: eval for right sided pneumo pain COMPARISON STUDY: 07/24/2016 FINDINGS: The bones soft tissues and hemidiaphragms are normal. The cardiomediastinal silhouette is normal. The lungs are clear. The pulmonary vasculature is normal. IMPRESSION: Negative chest. Electronically signed by: Frank Foy M.D. 08/25/2016 6:32 AM Dictated Date/Time: 08/25/2016 6:31 AM
--- NOTE | 2016-08-25 06:34 | DIAGNOSTIC IMAGING REPORT ---
CHEST CT WITH CONTRAST CT DOSE: HISTORY: Trauma right chest wall pain; diminished/absent breath sounds TECHNIQUE: Multiaxial CT images of the chest were performed following the intravenous administration of contrast. COMPARISON: None. FINDINGS: The lungs are clear. The mediastinal vascular structures are within normal limits. No mediastinal or hilar lymphadenopathy. No pleural effusion or pneumothorax. Limited views of the upper abdomen demonstrate a normal liver and spleen. Mild bibasilar atelectasis IMPRESSION: No significant abnormality identified within the chest. Mild bibasilar atelectasis Electronically signed by: Frank Foy M.D. 08/25/2016 6:33 AM Dictated Date/Time: 08/25/2016 6:32 AM
--- NOTE | 2016-08-25 06:36 | DIAGNOSTIC IMAGING REPORT ---
CERVICAL SPINE CT CT DOSE: HISTORY: Trauma fall TECHNIQUE: Multiaxial CT images of the cervical spine were performed and reformatted in the sagittal and coronal plane without the use of contrast. COMPARISON: None. FINDINGS: No fractures. No subluxation. Prevertebral soft tissues and the C1-C2 interval are intact. No pneumothorax. Degenerative changes throughout. Most significant at C5-C6 and C6-C7. Minimal grade 1 anterolisthesis C4 on C5 felt to be degenerative. IMPRESSION: No fractures within the cervical spine. Significant degenerative change primarily from seen 5 through C7 Electronically signed by: Frank Foy M.D. 08/25/2016 6:34 AM Dictated Date/Time: 08/25/2016 6:33 AM
--- NOTE | 2016-08-25 06:38 | DIAGNOSTIC IMAGING REPORT ---
ADDENDUM The initial stat report described potential infiltrative/inflammatory change of left ureter and left renal collecting system. The examination is a duplicated in reference to left kidney compared to the prior study of 07/23/2016. Perinephric infiltrative change on the prior study is in fact improved. There is no current evidence for an infected left urinary tract based on this exam. Electronically signed by: Frank Foy M.D. 08/25/2016 9:03 AM Dictated Date/Time: 08/25/2016 8:59 AM ORIGINAL REPORT ABDOMEN AND PELVIS CT WITH IV CONTRAST CT DOSE: 3519.36 mGy.cm HISTORY: Trauma. Pain. fall TECHNIQUE: Multiaxial CT images of the abdomen and pelvis were performed following the use of intravenous contrast. COMPARISON STUDY: 07/23/2016 FINDINGS: Mild bibasilar atelectatic change. Liver spleen and pancreas are unremarkable. Kidneys negative for pericolic infiltrative change or laceration. Both kidneys enhance uniformly. Several left renal calcifications. Left ureteral stent in general good position. Bowel pattern is nonobstructive. Bladder is midline. Fracture right transverse process of L2. IMPRESSION: 1. Fracture right transverse process L2. 2. No acute process the abdomen or pelvis. 3. Left ureteral stent in position. 4. Several nonobstructing left renal calcifications. Electronically signed by: Frank Foy M.D. 08/25/2016 6:36 AM Dictated Date/Time: 08/25/2016 6:35 AM
--- NOTE | 2016-08-25 06:39 | DIAGNOSTIC IMAGING REPORT ---
HEAD CT NONCONTRAST CT DOSE: HISTORY: Trauma. Pain. fall > 20 feet TECHNIQUE: Multiaxial CT images of the head were performed without the use of intravenous contrast. Comparison: None. Findings: The paranasal sinuses and mastoid air cells are clear. The calvarium and skull base are intact. The ventricles and sulci are within normal limits. There is no mass, hematoma, midline shift, or acute infarct. Impression: No acute intracranial abnormality. Electronically signed by: Frank Foy M.D. 08/25/2016 6:37 AM Dictated Date/Time: 08/25/2016 6:37 AM
[2016-08-25 07:57] VITALS: BP 100/66; PULSE 68; TEMP 36.5; O2SAT 98
[2016-08-25] MEDS: FLUTICASONE/SALMETEROL (ADVAIR) 500/50 INH 14 PUFF INH SCH ×2 (08:02→20:46)
[2016-08-25] MEDS: FLUTICASONE PROPIONATE NA SPR 16 GM BTL NAE SCH (08:03)
[2016-08-25] MEDS ORDERED: TOPIRAMATE 25 MG TAB PO SCH (09:00)
[2016-08-25] MEDS ORDERED: LEVOFLOXACIN / D5W 750 MG in PREMIXED IN D5W 150 ML IV SCH (09:00)
[2016-08-25 09:06] LABS: MANUAL MICROSCOPIC REQUIRED? YES; URINE APPEARANCE TURBID (CLEAR); URINE BILIRUBIN NEG (NEG); URINE COLOR BROWN; URINE NITRITE NEG (NEG); URINE PH 5.5 (4.5-7.5); UROBILINOGEN NEG (NEG)
[2016-08-25 09:08] LABS: REVIEW REQ? NO
[2016-08-25 09:15] LABS: URINE BACTERIA NEG (NEG); URINE MUCUS PRESENT (NONE PRSENT); URINE RBC >30 /hpf (0-4)
--- NOTE | 2016-08-25 09:38 | Urology Consultation ---
History General Date of Service: Aug 25, 2016. Primary Care Physician: Angel Major M.D. Pt seen a urologist before?: Yes If yes, why?: stones History of Present Illness 51y/o male s/p recent L ureteral stent placement and subsequent L ESWL (on Friday) - had been progressing appropriately when he had a fall from a hayloft ( estimated 25ft) yesterday - now with b/l pulmonary contusions and possible spine fracture - has had some difficulty with urination since the time of the fall - small volumes, more frequent voiding - darker (cola/tea colored urine) - post void residual was measured at 300cc + earlier - no significant change in his left sided discomfort CT: stone fragments in the left kidney. Stent in ok position just above the UPJ. Some dilation of the renal pelvis - but in my opinion, this is a normal and appropriate considering the stent and recent interventions. No perinephric hematoma or subcapsular hematomas. 08/25/16 05:06 08/25/16 05:06 Test 08/25/16 01:13 08/25/16 05:06 08/25/16 08:20 Bedside Hemoglobin 14.3 g/dl (14.0-18.0) Bedside Hematocrit 42 % (42-52) Bedside Sodium 139 mEq/L (135-144) Bedside Potassium 4.1 mEq/L (3.3-5.0) Bedside Chloride 106 mEq/L (101-112) Bedside Total CO2 19 mEq/l (24-31) Bedside Blood Urea Nitrogen 19 mg/dl (7-18) Bedside Creatinine 1.2 mg/dl (0.6-1.3) Bedside Glucose (other) 112 mg/dl (70-99) Bedside Ionized Calcium (Diego) 1.13 mmol/l (1.12-1.32) Red Blood Count 4.15 M/uL (4.7-6.1) Mean Corpuscular Volume 91.1 fL (80-100) Mean Corpuscular Hemoglobin 30.8 pg (25-34) Mean Corpuscular Hemoglobin Concent 33.9 g/dl (32-36) RDW Standard Deviation 47.5 fL (36.4-46.3) RDW Coefficient of Variation 14.1 % (11.5-14.5) Mean Platelet Volume 9.0 fL (7.4-10.4) Anion Gap 9.0 mmol/L (3-11) Est Creatinine Clear Calc Drug Dose 104.9 ml/min Estimated GFR () 89.6 Estimated GFR (Non- 77.3 BUN/Creatinine Ratio 15.4 (10-20) Calcium Level 8.4 mg/dl (8.5-10.1) Urine Color BROWN Urine Appearance TURBID (CLEAR) Urine pH 5.5 (4.5-7.5) Urine Specific [place] 1.020 (1.000-1.030) Urine Protein 3+ (NEG) Urine Glucose (UA) NEG (NEG) Urine Ketones TRACE (NEG) Urine Occult Blood 3+ (NEG) Urine Nitrite NEG (NEG) Urine Bilirubin NEG (NEG) Urine Urobilinogen NEG (NEG) Urine Leukocyte Esterase NEG (NEG) Urine RBC >30 /hpf (0-4) Urine WBC 1-5 /hpf (0-5) Urine Epithelial Cells 10-20 /lpf (0-5) Urine Bacteria NEG (NEG) Urine Hyaline Casts 5-10 /lpf (0-5) Urine Granular Casts 1-5 /lpf (0) Urine Mucus PRESENT (NONE PRSENT) Vital Signs Past 12 Hours Date Time Temp Pulse Resp B/P Pulse Ox O2 Delivery O2 Flow Rate FiO2 08/25/16 07:57 36.5 68 18 100/66 98 Room Air 08/25/16 07:40 Room Air 08/25/16 05:25 Room Air 08/25/16 04:54 36.7 76 20 123/78 Room Air 08/25/16 04:31 36.7 76 20 123/78 97 Room Air 08/25/16 04:06 77 20 116/72 99 08/25/16 03:00 76 20 128/77 99 Room Air 08/25/16 01:46 80 28 130/72 97 Room Air 08/25/16 01:27 97 08/25/16 01:08 83 08/25/16 00:49 36.9 78 22 121/83 97 Room Air Laboratory Labs were reviewed and are within normal limits unless listed below. Labs are available in the chart and at [facility] Problem List Medical Problems: (1) Fracture of transverse process of lumbar vertebra Status: Acute (2) Obstructive uropathy Status: Acute (3) Obstructive uropathy Status: Acute (4) Pulmonary contusion Status: Acute (5) Renal colic on left side Status: Acute Past History asthma, GERD, hypertension, kidney stones, other (PTSD) Past Surgical History: lithotripsy, ureteral stent Family History Cancer Diabetes mellitus Heart disease Hypertension Social History Hx Tobacco Use In Past Year?: No Marital status: Occupation status: employed Immunizations History of Influenza Vaccine: N/A History of Tetanus Vaccine?: Yes History of Pneumococcal: No History of Hepatitis B Vaccine: Unknown History of MDRO No Allergies Coded Allergies: Shellfish (Verified Allergy, Severe, ANAPHYLAXIS, 08/25/16) [place] (Verified Allergy, Severe, ANAPHYLAXIS, 08/25/16) [place] (Verified Allergy, Severe, ANAPHYLAXIS, 08/25/16) Penicillins (Verified Allergy, Unknown, UNKNOWN - HAPPENED CHILD, ) Sulfa Antibiotics (Verified Allergy, Unknown, HIVES, 08/25/16) Pantoprazole (Verified Adverse Reaction, Unknown, "NON-TOLERANT", 08/25/16) Medications Home Medications: Home Meds and Scripts Medications Dose Route/Sig Max Daily Dose Days Date Category Dose Instructions Percocet 5MG/325MG (Oxycodone/Acetaminophen) Tab 0.5 Tablet PO Q6H PRN 08/07/16 Reported PAIN Mucinex D (Pseudoephedrine-Guaifenesin) 1 Tab Tab 60 Mg PO BID 10 08/07/16 Reported Myrbetriq Er (Mirabegron) 25 Mg Tab 25 Mg PO DAILY 08/07/16 Reported Valtrex (Valacyclovir HCl) 500 Mg Tab 500 Mg PO BID PRN 08/07/16 Reported Topamax (Topiramate) 50 Mg Tab 100 Mg PO MIDDLE DAY 08/07/16 Reported Flonase Allergy Relief (Fluticasone Propionate (Nasal)) 50 Mcg/Act Spr 1 [place] BRIDGETT QAM 08/07/16 Reported Mago Allergy (Fexofenadine Hcl) 60 Mg Tab 1 Tab PO DAILY 08/07/16 Reported Prevacid (Lansoprazole) 15 Mg Capcr 15 Mg PO QPM 07/29/16 Reported Advair Diskus 500/50 60 Dose (Fluticasone Prop/Salmeterol) 1 Ea Aerp 2 Puffs INH BID 07/23/16 Reported Prazosin (Prazosin HCl) 1 Mg Cap 1 Mg PO HS 07/23/16 Reported Ativan (Lorazepam) 1 Mg Tab 1 Mg PO QPM 07/23/16 Reported Inpatient Medications: Current Inpatient Medications Medications (Trade) Dose Ordered Sig/Mikel Route Start Time Stop Time Status Last Admin Dose Admin Ioversol (Optiray 320) 125 ml UD PRN IV 08/25/16 02:00 08/29/16 01:59 Salmeterol Xinafoate/ Fluticasone (Advair Diskus 500/50 Inh) 1 puff BID INH 08/25/16 09:00 09/24/16 08:59 08/25/16 08:02 1 PUFF Fluticasone Propionate (Flonase Nasal [place]) 2 sprays QAM BRIDGETT 08/25/16 09:00 09/24/16 08:59 08/25/16 08:03 2 SPRAYS Lorazepam (Ativan Tab) 1 mg QPM PO 08/25/16 21:00 09/24/16 20:59 Mirabegron (Myrbetriq Er) 25 mg DAILY PO 08/25/16 09:00 09/24/16 08:59 Valacyclovir HCl (Valtrex Tab) 500 mg BID PRN PO 08/25/16 03:45 09/04/16 03:44 Lansoprazole (Prevacid Solutab) 15 mg QPM PO 08/25/16 21:00 09/24/16 20:59 Prazosin HCl (Prazosin) 1 mg HS PO 08/25/16 21:00 09/24/16 20:59 Acetaminophen (Tylenol Tab) 650 mg Q4H PRN PO 08/25/16 03:45 09/24/16 03:44 Ondansetron HCl (Zofran Inj) 4 mg Q6H PRN IV 08/25/16 03:45 09/24/16 03:44 Hydromorphone HCl 1.5 mg 1.5 mg Q3H PRN IV 08/25/16 03:45 09/08/16 03:44 08/25/16 08:05 1.5 MG Dextrose/Sodium Chloride (D5W And Nss) 1,000 ml @ 125 mls/hr Q8H IV 08/25/16 03:45 08/25/16 19:44 08/25/16 04:41 125 MLS/HR Topiramate 50 mg 50 mg DAILY@1200 PO 08/25/16 12:00 09/24/16 08:59 Levofloxacin/Prmx (Levaquin / D5W/ Premixed D5W) 150 ml @ 100 mls/hr Q24H IV 08/25/16 09:00 09/04/16 08:59 Review of Systems Review of Systems Constitutional: No chills, No fever, No frequent headaches, No problem reported , No see HPI, No weight loss Eyes: No blurred vision, No double vision, No eye pain, No loss of night vision , No problem reported, No see HPI Neurological: No dizzy, No numbness/tingling, No passing out, No problem reported, No see HPI, No seizures Endocrine: No excessive thirst, No problem reported, No see HPI, No tired/ sluggish, No too cold, No too hot Gastrointestinal: + abdominal pain Respiratory: + problem reported (pain with deep inspiration), + shortness of breath Skin: No boils, No dry skin, No problem reported, No rash, No see HPI Musculoskeletal: + back pain, No arthritis, No joint pain, No neck pain, No problem reported Blood / Lymphatic: No bleed easily, No bruise easily, No problem reported, No see HPI, No swollen glands Ears / Nose / Throat: No hearing loss, No hoarse voice, No problem reported, No see HPI, No sinus, No sore throat Psychologic / Mental: No difficulty sleeping, No nervous, No problem reported, No see HPI, No trouble remembering Male : + frequent urination, + kidney stones, + problem reported All Other Systems: Reviewed and Negative Physical Exam Vital Signs: Vital Signs Past 12 Hours Date Time Temp Pulse Resp B/P Pulse Ox O2 Delivery O2 Flow Rate FiO2 08/25/16 07:57 36.5 68 18 100/66 98 Room Air 08/25/16 07:40 Room Air 08/25/16 05:25 Room Air 08/25/16 04:54 36.7 76 20 123/78 Room Air 08/25/16 04:31 36.7 76 20 123/78 97 Room Air 08/25/16 04:06 77 20 116/72 99 08/25/16 03:00 76 20 128/77 99 Room Air 08/25/16 01:46 80 28 130/72 97 Room Air 08/25/16 01:27 97 08/25/16 01:08 83 08/25/16 00:49 36.9 78 22 121/83 97 Room Air Physical Exam: General Appearance: + mild distress (appears to be somewhat uncomfortable) Eyes: bilateral eyes normal inspection ENT: hearing grossly normal Neck: no adenopathy Respiratory/Chest: no respiratory distress, no accessory muscle use Cardiovascular: regular rate, rhythm, no edema Gastrointestinal: Abdomen: normal abdomen Bladder: normal bladder Renal: normal renal Extremities: no pedal edema Neurologic/Psychiatric: alert, normal mood/affect, oriented x 3 Skin: warm/dry Lymphatic: no adenopathy Assessment & Plan Assessment & Plan Fall from ; pulmonary contusions; s/p ESWL on Friday; some urinary difficulties Stone - stent appears to be in appropriate position, no evidence of bleed or other acute change to the kidney - recommend simple observation from a stone standpoint, no planned or needed interventions - does not appear to be infected Urination - some proteinuria on UA as well as blood - difficult to determine what portion of this is related to the fall (early/mild rhabdo) vs his interventions - if there is some element of rhabdo, we will likely see some decline in renal function over the next 24-48hrs - hydrate well - if he has continued to difficulty urinating or inability to urinate, he may require temporary catheterization - recommend post void PVRs today - if he begins to develop lower abdominal distention or pain, consider elective catheterization
[2016-08-25] MEDS: MIRABEGRON ER 25 MG TAB PO SCH (10:46)
[2016-08-25] MEDS: TOPIRAMATE 25 MG TAB PO SCH (12:51)
--- NOTE | 2016-08-25 13:02 | ORTHOPEDIC CONSULTATION ---
DATE OF CONSULTATION: 08/25/2016 CHIEF COMPLAINT: Back pain. HISTORY OF PRESENT ILLNESS: This is a very pleasant 51-year-old male that fell late last evening. He was at home in the barn, fell he believes 20-25 feet onto the barn floor. Fortunately, the barn floor was covered with hay at that time. He states he had immediate onset of back pain and shortness of breath. He was taken to Emergency Room and I am seeing him for consultation regarding lumbar fracture. At this time, he complains mostly of right-sided chest pain, particularly on inspiration. He is markedly uncomfortable. He has some low back pain but also has some issues with his kidneys going on at this time. Denies any numbness and tingling in the perineal region or lower extremities. Denies any leg pain. PHYSICAL EXAMINATION: He has excellent plantar flexion, dorsiflexion of quadriceps and bilateral lower extremities. Sensory is symmetric and intact. Negative log roll. He was able to sit up for me but markedly uncomfortable, mostly due to rib pain on the right. Palpation and percussion of the thoracolumbar region as well as the cervical region demonstrates no significant discomfort. He does demonstrate full active range of motion of the cervical spine without discomfort. Excellent strength to testing of upper extremities. There were no abnormal skin markings, abrasions appreciable along his thoracolumbar spine. CAT scans available for review of the cervical spine demonstrate severe multilevel spondylosis, no evidence of acute fracture. Thoracic spine, I am unable to appreciate any fracture on the axial views available. Lumbar CAT scan demonstrates his transverse process fracture on the left at L2. No coronal, sagittal views are available at this time. ASSESSMENT: Status post fall with L2 transverse process fracture. PLAN: At this time, I would like to have further sequencing produced of the lumbar spine for further evaluation, but I do not anticipate any new findings. At this time, I would not recommend a brace. He can transfer to a chair as tolerated. I will see him throughout his stay.
--- NOTE | 2016-08-25 13:07 | Progress Note ---
Progress Note Date of Service Aug 25, 2016. Progress Note Pt admitted after midnight. Chart reviewed and pt seen and examined. Pt with continued significant pain in right anterior ribs and right upper mid back, making it hard to breathe. Not hypoxic, no rib fractures or effusions seen on chest CT at 0100. Ortho Spine saw pt today and claled me with concern for this persistent severe pain and h/o significant trauma/fall from great height. Pt is tender over the right anterior chest wall as well as right upper back around ribs 5-6 region. Lungs with decreased BS at bases, poor inspiratory effort secondary to pain., RRR no mgr nl S1S2 ABd soft NT ND +BS Ext no joint effuions, FROM of joints but pain with ROM of shoulders due to chest pain, no ttp over other joints SKin right anterior tibia with a few superficial abrasions,not actively bleeding 51 yo male with fall from 25 feet landing on back on cattle bedding, with right L2 transverse process fracture, severe chest wall pain, otherwise no other injuries. -change DIlaudid to 1mg IV q2, encouraged IS -Discussed case with Drs. Kendrick and Sheri--> no treatmen except pain management for L2 fracture, f/u with Ortho. Dr. Wade of Thoracic Surgery will be in to see pt. -will repeat CXR and rib series on right now to f/u to see if missed rib fracture and/or PTX or pleural effusion -docusate for constipation -check CPK now to assess for rhabdomyolysis Appreciate Urology input for hematuria related to recent lithotripsy and ureteral stent placement, no signs of infection, stop Levaquin Asthma/allergies-continue home meds and inhalers Proph-SCDs Dispo-to home when able to PT/OT
[2016-08-25] MEDS: HYDROmorphone INJ 1 MG/ML SYR IV PRN ×2 (13:16→15:50)
--- NOTE | 2016-08-25 13:53 | DIAGNOSTIC IMAGING REPORT ---
RIGHT RIBS UNILATERAL WITH PA CHEST CLINICAL HISTORY: fall from 20 feet, right sided rib pain, follow up x-ray Right COMPARISON STUDY: None FINDINGS: Negative study of the right ribs. Cortical margins are intact. Right lung remains clear. IMPRESSION: Negative study Electronically signed by: Frank Foy M.D. 08/25/2016 1:52 PM Dictated Date/Time: 08/25/2016 1:50 PM
--- NOTE | 2016-08-25 14:19 | DIAGNOSTIC IMAGING REPORT ---
LUMBAR SPINE CT CT DOSE: 1198.18 mGy.cm HISTORY: Trauma. Pain. back pain s/p fall TECHNIQUE: Multiaxial CT images of the lumbar spine were performed and reformatted in the sagittal and coronal plane without the use of contrast. COMPARISON: None. FINDINGS: Nondisplaced fracture right transverse process of L2. Vertebral body stature is normal. Mild degenerative intervertebral disc changes throughout. No significant compromise of the spinal canal based on this exam. Posterior elements are intact throughout. IMPRESSION: 1. Nondisplaced fracture right transverse process of L2. 2. Mild degenerative disc change. 3. No evidence for ascites significant compromise of the spinal canal 4. No evidence for compression fracture. 5. Left ureteral stent in position Electronically signed by: Frank Foy M.D. 08/25/2016 2:18 PM Dictated Date/Time: 08/25/2016 2:15 PM
--- NOTE | 2016-08-25 15:12 | SURGICAL CONSULTATION ---
DATE OF CONSULTATION: 08/25/2016 REASON FOR CONSULTATION: Blunt chest trauma. HISTORY OF PRESENT ILLNESS: This is a healthy 51-year-old male who fell about 20-25 feet about 18 hours prior to my evaluation. He landed on some cushioning, but came to an abrupt halt landing on his back. Immediately had difficulty breathing. He also had developed some nausea a bit later. I was asked to evaluate him from a thoracic standpoint to ensure that we were not dealing with any type of pulmonary contusion. He does have a fracture of the second lumbar transverse process. His saturation on room air currently is 98%. He is having no signs or symptoms of pulmonary insufficiency. PAST MEDICAL HISTORY: 1. History of nephrolithiasis (currently has a ureteral stent in place). 2. Significant gastroesophageal reflux disease with esophageal strictures and apparent Clark's esophagus. 3. History of asthma. 4. Allergic rhinitis 5. Post-traumatic stress disorder. 6. History of Karla-Mccollum tear. 7. History of herpes simplex. PAST SURGICAL HISTORY: 1. Shoulder and knee arthroscopy. 2. Dilatation of esophageal strictures. MEDICATIONS: 1. Valium. 2. Advair Diskus. 3. Prazosin. 4. Ativan. 5. Topamax. 6. Econazole. ALLERGIES: 1. SHELLFISH. 2. STRAWBERRIES. 3. WALL NUTS. 4. PANTOPRAZOLE. 5. SULFA ANTIBIOTICS. 6. PENICILLIN. SOCIAL HISTORY: The patient does not smoke cigarettes. Occasionally will have an alcoholic beverage. He lives with his . 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 REVIEW OF SYSTEMS: Prior to this occurring the patient did have problems with bronchitis recently. He also had a ureteral nephrolithiasis, underwent a stent placement, lithotripsy. He has had some hematuria since that time. He denies any fevers or chills. He did have some nausea without vomiting an hour or so after this fall last night. He complained of shortness of breath but is not tachypneic. Denies any hemoptysis. He has had no productive cough. He has had no neurologic symptoms such as amaurosis fugax, transient ischemic attack. He has had no visual symptoms although he does wear glasses. He has had no problems with his hearing or any skin breakdown. He denies any peripheral edema or claudication type symptoms. PHYSICAL EXAMINATION: GENERAL: This is a well-developed, well-nourished male who stands 6 feet 2 inches tall and weighs 242 pounds. He is awake and alert. HEENT: His extraocular movements are intact. Pupils are equal, round and reactive. He does wear glasses. His sclerae are pale but anicteric. He has no nasolabial flattening. Teeth in good repair. NECK: Supple. He has no supraclavicular or cervical lymphadenopathy, neck vein distention, thyromegaly or carotid bruits. I detect no swelling or ecchymosis. He has no axillary adenopathy. LUNGS: Clear. HEART: Regular rate and rhythm of his heart. ABDOMEN: Soft, nontender, with no surgical incisions. He has good peripheral pulses. He has some mild hemosiderin deposition in both lower legs. NEUROLOGIC: He is awake, alert, oriented. He has no focal deficits. He is complaining of severe pain in the area of L2 on the right with radiation anteriorly but is nontender anteriorly, although he is tender over his back. He has no ecchymosis, no fluctuance. DATA: I reviewed all of his films and his labs. White count is a bit elevated at 12,240 and his hemoglobin was 12.8. His BUN and creatinine are 17 and 1.1 respectively. Total creatine kinase is 329. I have reviewed all of his CT scans and his x-rays. ASSESSMENT AND PLAN: 1. Fracture of L2 after a 20-25 foot tall. I do not think the patient has a pulmonary contusion. I think he just needs to work on his incentive spirometry, coughing and walking. I think pain control is going to be a major issue with him. I had a long talk with the patient and his father. I think he is going to be okay from a pulmonary and thoracic surgery standpoint. GRECIA
[2016-08-25 15:29] VITALS: BP 101/71; PULSE 79; TEMP 36.6; O2SAT 98
[2016-08-25 16:00] VITALS: O2SAT 98
[2016-08-25] MEDS: DOCUSATE SODIUM 100 MG CAP PO SCH (20:46)
[2016-08-25] MEDS ORDERED: LORAZEPAM 1 MG TAB PO SCH (21:00)
[2016-08-25] MEDS ORDERED: PRAZOSIN HCL 1 MG CAP PO SCH (21:00)
[2016-08-25] MEDS ORDERED: LANSOPRAZOLE SOLUTAB 15 MG PO SCH (21:00)
[2016-08-25 22:42] VITALS: BP 97/61; PULSE 78; TEMP 37.1; O2SAT 96
[2016-08-26 01:12] VITALS: BP 122/71; PULSE 74
[2016-08-26] MEDS: HYDROmorphone INJ 1 MG/ML SYR IV PRN ×3 (01:12→08:00)
[2016-08-26 06:26] LABS: BASO % 0.5 %; BASO ABS # 0.04 K/uL (0-0.2); COMPLETE YES; EOS % 4.6 %; HEMATOCRIT 39.8 % (42-52); IG% 0.5 %; LYMPH % 26.5 %; LYMPH ABS # 2.29 K/uL (1.2-3.4); MEAN CELL VOLUME 92.3 fL (80-100); MEAN CORPUSCULAR HEMOGLOBIN 30.2 pg (25-34); MEAN CORPUSCULAR HGB CONC 32.7 g/dl (32-36); MEAN PLATELET VOLUME 9.2 fL (7.4-10.4); MONO % 13.1 %; NEUT % 54.8 %; PLATELET COUNT 286 K/uL (130-400); RED BLOOD COUNT 4.31 M/uL (4.7-6.1); WHITE BLOOD COUNT 8.63 K/uL (4.8-10.8)
[2016-08-26 06:55] LABS: BUN/CREATININE RATIO 12.3 (10-20); CALCIUM 8.4 mg/dl (8.5-10.1); CREATININE 0.95 mg/dl (0.60-1.40); POTASSIUM 3.9 mmol/L (3.5-5.1)
[2016-08-26 07:24] VITALS: BP 113/65; PULSE 77; TEMP 36.5; O2SAT 96
--- NOTE | 2016-08-26 07:31 | Progress Note ---
Subjective Date of Service: Aug 26, 2016. Subjective Pt evaluation today including: conversation w/ patient, chart review, lab review Voiding: no voiding problems Pt c/o persistent chest pain and pain with deep breathing and movement this morning. Also c/o some spinal pain, but reports the chest pain is worse. Denies dysuria or hematuria. Reports he is voiding well. He reports he was told his bladder scan this morning was "minimal" although no PVRs for today listed in the chart. Problem List Medical Problems: (1) Fracture of transverse process of lumbar vertebra Status: Acute (2) Obstructive uropathy Status: Acute (3) Obstructive uropathy Status: Acute (4) Pulmonary contusion Status: Acute (5) Renal colic on left side Status: Acute Review of Systems Constitutional: No chills, No fever Respiratory: No shortness of breath Cardiac: + chest pain, + see HPI Abdomen: No nausea, No pain, No vomiting Musculoskeletal: + problem reported (back pain ) Male : No dysuria, No hematuria Heme: No abnormal bleeding/bruising Objective Vital Signs Date Time Temp Pulse Resp B/P Pulse Ox O2 Delivery O2 Flow Rate FiO2 08/26/16 01:12 74 122/71 08/26/16 01:10 Room Air 08/25/16 22:42 37.1 78 16 97/61 96 Room Air 08/25/16 16:00 98 Room Air 08/25/16 15:29 36.6 79 18 101/71 98 Room Air 08/25/16 07:57 36.5 68 18 100/66 98 Room Air 08/25/16 07:40 Room Air Physical Exam General Appearance: no apparent distress Eyes: normal inspection ENT: hearing grossly normal Neck: no JVD Respiratory/Chest: no respiratory distress, no accessory muscle use Cardiovascular: no JVD Extremities: normal inspection Neurologic/Psychiatric: alert, normal mood/affect, oriented x 3 Skin: normal color Laboratory Results Last 24 Hours Test 08/25/16 08:20 08/26/16 05:45 Urine Color BROWN Urine Appearance TURBID Urine pH 5.5 Urine Specific [place] 1.020 Urine Protein 3+ Urine Glucose (UA) NEG Urine Ketones TRACE Urine Occult Blood 3+ Urine Nitrite NEG Urine Bilirubin NEG Urine Urobilinogen NEG Urine Leukocyte Esterase NEG Urine RBC >30 /hpf Urine WBC 1-5 /hpf Urine Epithelial Cells 10-20 /lpf Urine Bacteria NEG Urine Hyaline Casts 5-10 /lpf Urine Granular Casts 1-5 /lpf Urine Mucus PRESENT White Blood Count 8.63 K/uL Red Blood Count 4.31 M/uL Hemoglobin 13.0 g/dL Hematocrit 39.8 % Mean Corpuscular Volume 92.3 fL Mean Corpuscular Hemoglobin 30.2 pg Mean Corpuscular Hemoglobin Concent 32.7 g/dl Platelet Count 286 K/uL Mean Platelet Volume 9.2 fL Neutrophils (%) (Auto) 54.8 % Lymphocytes (%) (Auto) 26.5 % Monocytes (%) (Auto) 13.1 % Eosinophils (%) (Auto) 4.6 % Basophils (%) (Auto) 0.5 % Neutrophils # (Auto) 4.73 K/uL Lymphocytes # (Auto) 2.29 K/uL Monocytes # (Auto) 1.13 K/uL Eosinophils # (Auto) 0.40 K/uL Basophils # (Auto) 0.04 K/uL RDW Standard Deviation 48.3 fL RDW Coefficient of Variation 14.1 % Immature Granulocyte % (Auto) 0.5 % Immature Granulocyte # (Auto) 0.04 K/uL Sodium Level 142 mmol/L Potassium Level 3.9 mmol/L Chloride Level 108 mmol/L Carbon Dioxide Level 26 mmol/L Anion Gap 8.0 mmol/L Blood Urea Nitrogen 12 mg/dl Creatinine 0.95 mg/dl Est Creatinine Clear Calc Drug Dose 121.5 ml/min Estimated GFR () 107.0 Estimated GFR (Non- 92.3 BUN/Creatinine Ratio 12.3 Random Glucose 90 mg/dl Calcium Level 8.4 mg/dl Magnesium Level 2.0 mg/dl Total Creatine Kinase 191 U/L Assessment and Plan A/P: Fall from ; pulmonary contusions; s/p ESWL on Friday; some urinary difficulties AFVSS. Stone - stent appears to be in appropriate position, no evidence of bleed or other acute change to the kidney - recommend simple observation from a stone standpoint, no planned or needed interventions - does not appear to be infected - tentatively plan for stent removal later this week as scheduled if pt is discharged. Otherwise will reschedule to a later date. Voiding -Pt reports improvement in voiding this AM. PVRs acceptable. Would continue to monitor PVRs. Place guerrier catheter if >250ml. Will continue to follow along with primary service.
--- NOTE | 2016-08-26 08:25 | DIAGNOSTIC IMAGING REPORT ---
CHEST 2 VIEWS ROUTINE HISTORY: blunt chest trauma COMPARISON: Chest 08/25/2016. FINDINGS: No pneumothorax. Trace bilateral pleural effusions. The heart is normal in size.. Bibasilar linear densities persist. The upper lung zones remain clear. IMPRESSION: Trace bilateral pleural effusions with bibasilar densities. This favors subsegmental atelectasis. Electronically signed by: Tim Madrid M.D. 08/26/2016 8:24 AM Dictated Date/Time: 08/26/2016 8:22 AM
[2016-08-26] MEDS: FLUTICASONE/SALMETEROL (ADVAIR) 500/50 INH 14 PUFF INH SCH (08:41)
[2016-08-26] MEDS: DOCUSATE SODIUM 100 MG CAP PO SCH (08:41)
[2016-08-26] MEDS: FLUTICASONE PROPIONATE NA SPR 16 GM BTL NAE SCH (08:41)
[2016-08-26] MEDS: MIRABEGRON ER 25 MG TAB PO SCH (08:42)
[2016-08-26] MEDS: OXYCODONE HCL IR 5 MG TAB (IMMEDIATE RELEASE) PO PRN ×2 (09:57→14:44)
[2016-08-26] MEDS ORDERED: RXC5 PO (11:13)
--- NOTE | 2016-08-26 11:37 | Discharge Instructions ---
Discharge Instructions Date of Service Aug 26, 2016. Admission Reason for Admission: Bilateral Pulmonary Contusion, L2 fracture-fall from 25 feet Discharge Discharge Diagnosis / Problem: pulmonary contusions Discharge Goals Goal(s): Improve function Activity Recommendations Activity Limitations: per Instructions/Follow-up section Lifting Limitations: no more than 10 pounds (until follow-up with orthopedics) . Instructions / Follow-Up Instructions / Follow-Up You have been treated in the hospital for a significant fall. This resulted in bruising on your lungs and a fracture of your lumbar spine. Please do not lift any more than 10 pounds or do any strenuous activity until you follow up with orthopedics Oxycodone Immediate Release (OxyIR) 5mg: Take 1-2 pills every four hours for pain. Avoid alcohol, operating machinery or dangerous equipment, working on ladders or roofs, DRIVING, or situations where being under the influence may be dangerous. It is recommended to use an [id number] stool softener such as Colace, 100mg twice daily while taking this medication to avoid constipation. Please continue other medications as prescribed Please follow up with urology as scheduled. Follow-up appointments were also been arranged with Dr. Kendrick from orthopedics and Dr. Wade from thoracic surgery Please use your incentive spirometer every 2 hours while awake for at least 2 weeks Call your doctor or return to the emergency department if you have any of the following symptoms: -Fever of 101F or greater -Persistent vomiting - Persistent diarrhea -Lethargy -Worsening chest pain -Shortness of breath -severe dizziness -weakness on one side of your body Current Hospital Diet Patient's current hospital diet: Regular Diet Discharge Diet Recommended Diet: Regular Diet Procedures Procedures Performed: CT chest No significant abnormality identified within the chest. Mild bibasilar atelectasis CT abdomen and pelvis 1. Fracture right transverse process L2. 2. No acute process the abdomen or pelvis. 3. Left ureteral stent in position. 4. Several nonobstructing left renal calcifications. Lumbar spine CT 1. Nondisplaced fracture right transverse process of L2. 2. Mild degenerative disc change. 3. No evidence for ascites significant compromise of the spinal canal 4. No evidence for compression fracture. 5. Left ureteral stent in position Pending Studies Studies pending at discharge: no Medical Emergencies . Who to Call and When: Medical Emergencies: If at any time you feel your situation is an emergency, please call 911 immediately. . Non-Emergent Contact Non-Emergency issues call your: Primary Care Provider . . "Provider Documentation" section prepared by Fernanda Coffey. VTE Core Measure Inpt VTE Proph given/why not?: T.E.D. Stockings, SCD's, Contraindicated (trauma )
--- NOTE | 2016-08-26 11:58 | Discharge Summary ---
Discharge Summary Date of Service Aug 26, 2016. (Fernanda Coffey PA-C) Discharge Summary Admission Date: Aug 25, 2016 at 03:41 Discharge Date: Aug 26, 2016 Discharge Disposition: Home Principal Diagnosis: L2 fracture, blunt trauma, fall from 25 feet Problems/Secondary Diagnoses: kidney stones GERD asthma Immunizations: Have You Had Influenza Vaccine: N/A History of Tetanus Vaccine?: Yes History of Pneumococcal: No History of Hepatitis B Vaccine: Unknown Procedures: CT chest No significant abnormality identified within the chest. Mild bibasilar atelectasis CT abdomen and pelvis 1. Fracture right transverse process L2. 2. No acute process the abdomen or pelvis. 3. Left ureteral stent in position. 4. Several nonobstructing left renal calcifications. Lumbar spine CT 1. Nondisplaced fracture right transverse process of L2. 2. Mild degenerative disc change. 3. No evidence for ascites significant compromise of the spinal canal 4. No evidence for compression fracture. 5. Left ureteral stent in position Consultations: Thoracic surgery Orthopedic surgery Urology (Fernanda Coffey PA-C) Medication Reconciliation New Medications: Oxycodone HCl (Oxycodone HCl) 5 Mg Tab 10 MG PO Q4H PRN for Pain for 20 Days, #30 TAB Continued Medications: Fexofenadine Hcl (Mago Allergy) 60 Mg Tab 1 TAB PO DAILY Fluticasone Prop/Salmeterol (Advair Diskus 500/50 60 Dose) 1 Ea Aerp 2 PUFFS INH BID Fluticasone Propionate (Nasal) (Flonase Allergy Relief) 50 Mcg/Act Spr 1 SPRAY BRIDGETT QAM Lansoprazole (Prevacid) 15 Mg Capcr 15 MG PO QPM Lorazepam (Ativan) 1 Mg Tab 1 MG PO QPM, TAB Mirabegron (Myrbetriq Er) 25 Mg Tab 25 MG PO DAILY, TAB Prazosin Hcl (Prazosin) 1 Mg Cap 1 MG PO HS, CAP Topiramate (Topamax) 50 Mg Tab 100 MG PO MIDDLE DAY, TAB Valacyclovir (Valtrex) 500 Mg Tab 500 MG PO BID PRN for PRN, TAB Discontinued Medications: Oxycodone/Acetaminophen 5MG/325MG (Percocet 5MG/325MG) Tab 0.5 TABLET PO Q6H PRN for Pain, TAB PAIN Pseudoephedrine-Guaifenesin (Mucinex D) 1 Tab Tab 60 MG PO BID for 10 Days, TAB Referrals At Discharge Follow up Referrals: Orthopedics Referral - Within 1-2 Weeks with Milton Kendrick D.O. Surgery Referral - Within 1 Week with Soto Wade MD Discharge Exam Patient reports pain is improved today. The pain medications have been helping. Anxious to be discharged home. Denies any new pain. Urinating without difficulty. No fever or chills. Pain still noted with deep inspiration and coughing. Review of Systems: Constitutional: No fever Respiratory: No shortness of breath Cardiovascular: + chest pain Abdomen: No nausea, No pain Genitourinary - Male: No dysuria Physical Exam: General Appearance: no apparent distress Eyes: EOMI Neck: no JVD Respiratory/Chest: lungs clear Cardiovascular: regular rate, rhythm Abdomen / GI: normal bowel sounds, non tender, soft Extremities: no calf tenderness, no pedal edema Neurologic/Psychiatric: no motor/sensory deficits, oriented x 3 Skin: warm/dry (Fernanda Coffey, ISABELLAC) Hospital Course 51 y/o M w/Hx obstructive renal calculi, recent lithotripsy and placement of a L ureteral stent. The pt was gathering some hay in his barn when the floor gave out and he fell 25 feet onto a stack of brenton landing on his back. He presented with severe pleuritic CP. He has been having back pain related to his calculi but does not describe acute back pain. Extensive imaging revealed questionable b/l pulmonary contusions and an acute L2 right sided transverse process fracture. 1) ? Pulmonary contusions -Monitored on telemetry -Dilaudid 1 mg IV every 2 hours for pain was transitioned to oxycodone 10 mg po every 4 hours on the day of discharge -Thoracic surgery consulted. Feels it is likely more rib pain as opposed to significant pulmonary contusions -CT chest no contusions noted -Follow up with thoracic surgery in the office in one week -Encourage continued use of incentive spirometry 2) Ureteral stent with hydronephrosis and questionable UTI -Initially started on Levaquin -Urology consulted--> does not appear to be infected -Follow up with urology this week for stent removal 3) Asthma - no exacerbation noted 4) PTSD -Topamax daily 5) Vertebral fracture -Orthopedics consulted. No brace recommended -Follow up with orthopedics in the office in 2 weeks -Oxycodone as needed for pain control as noted above 6) DVT prophylaxis -Teds, SCDs only. Chemical means contraindicated secondary to trauma 7) CODE STATUS -LEVEL I FULL CODE Total Time Spent: Greater than 30 minutes This includes examination of the patient, discharge planning, medication reconciliation, and communication with other providers. (Fernanda Coffey PA-C) PA Physician Supervision Note: I discussed with Fernanda Coffey PAC and agree with findings and plan as documented in the note. Any exceptions or clarifications are listed here: None Pt was in some pain but stable for discharge, will follow up with Dr Wade and Dr Kendrick as outpt Documented By: Harsha Ocampo (Harsha Ocampo M.D.) Discharge Instructions Please refer to the electronic Patient Visit Report (Discharge Instructions) for additional information. (Fernanda Coffey PA-C) Follow-Up Urology this week Thoracic surgery next week Orthopedics in 2 weeks (Fernanda Coffey PA-C) Additional Copies To Milton Kendrick D.O.; Adriane Torres CRNP; Angel Major M.D.; Soto Wade MD
[2016-08-26] MEDS: TOPIRAMATE 25 MG TAB PO SCH (12:09)
--- NOTE | 2016-08-26 12:18 | SURGERY PROGRESS NOTE ---
DATE: 08/26/2016 Mr. Butterfield was seen today on 08/26/2016. He feels much better today. He is sitting up in a chair. He is eating breakfast. His lungs sound clear. He has had much better pulmonary effort. His pain is much better controlled. A chest x-ray shows trace effusions on both sides but I see no evidence of parenchymal or pulmonary contusion. ASSESSMENT AND PLAN: Blunt chest trauma. At this point, from a thoracic surgery standpoint, I think he is stable for discharge. I would like to see him back in 1 week with a chest x-ray.
[2016-08-26 12:53] VITALS: BP 113/65; PULSE 77; TEMP 36.5; O2SAT 96
[2016-08-26 16:18] VITALS: BP 125/73; PULSE 82; TEMP 36.8; O2SAT 99
[2016-08-26 16:30] VITALS: O2SAT 99
--- NOTE | 2016-08-28 07:13 | EDITING REQUIRED CODING QUERY ---
CODING QUERY To promote full compliance with coding requirements relating to patient care, provider participation is requested in all cases of janitor cleaner uncertainty. Please assist us with the question(s) below: Coding Question(s): Dr. Balderas, Possible obstruction of the ureteral stent was documented by Dr. Ferro. Please clarify if there was obstruction with hydronephrosis of the stent. ( ) Stent was obstructed with hydropnephrosis. ( x ) Stent was not obstructed. ( ) Other, please explain This stent was very appropriate and not obstructed. This was a radiology mistake. Please see their amended report as evidence of this. Physician's Response(s): Thank you for your time, SHANE Bro, ROLL TABLE OPERATOR
== END 2016-08-26 19:55 | disposition home or self-care (01) | DRG 552 ==
LOC: ENRESERVTM → ENRESERVDT → C.EDB 00:44 → C.MSN 03:41
PROVIDERS: ADMIT Internal Medicine; ATTEND Family Medicine
DX: S32.029A Unspecified fracture of second lumbar vertebra, initial encounter for closed fracture (principal); N13.30 Unspecified hydronephrosis; R31.9 Hematuria, unspecified; R80.9 Proteinuria, unspecified; K21.9 Gastro-esophageal reflux disease without esophagitis; K22.70 Barrett's esophagus without dysplasia; J45.909 Unspecified asthma, uncomplicated; I10 Essential (primary) hypertension; K59.00 Constipation, unspecified; Z96.0 Presence of urogenital implants; W13.3XXA Fall through floor, initial encounter; Y92.71 Barn as the place of occurrence of the external cause; F43.10 Post-traumatic stress disorder, unspecified; Z98.890 Other specified postprocedural states; Z79.51 Long term (current) use of inhaled steroids; Z79.891 Long term (current) use of opiate analgesic; Z79.899 Other long term (current) drug therapy

== ENCOUNTER → 2016-08-29 | Outpatient (CLI) | payer BC ==
[~2016-08-29] MED LIST changes: +AMINTAB13 PO; +ASCO100C2 PO; +CEPH-571 PO; +LDDP5 TD; +MILK150C PO; +MULT-506 PO; +NITR100C41 PO; -PSEU60TA80 PO; +RXC5 PO; +ST J150T PO; +XRL10 PO
--- NOTE | 2016-08-29 19:32 | DIAGNOSTIC IMAGING REPORT ---
KUB CLINICAL HISTORY: Nephrolithiasis. FINDINGS: An AP supine abdominal radiograph is -compared to study dated 08/23/2016 and correlated with abdominal CT dated 08/25/2016. A left ureteral stent is unchanged in position. No calcifications are seen along the course of the stent. There are 3 large stone fragments projecting over the lower pole of left kidney measuring up to 10 mm. No definite right renal calculi are seen in the right renal shadow was largely obscured by overlying colonic contents. There is a nonobstructed abdominal bowel gas pattern. Moderate colonic fecal retention is observed. The bony structures appear intact. IMPRESSION: 1. A left ureteral stent is unchanged in position. No calcifications are seen along the course of the stent. 2. There are 3 large stone fragments projecting over the lower pole of left kidney measuring up to 10 mm. 3. No definite calcifications are seen in the right kidney which was largely obscured. Electronically signed by: Jamin Bassett M.D. 08/29/2016 7:30 PM Dictated Date/Time: 08/29/2016 7:28 PM
== END | disposition home or self-care (01) ==
LOC: C.RAD 19:05
PROVIDERS: ATTEND Urology
DX: N20.0 Calculus of kidney (principal)

== ENCOUNTER → 2016-08-30 | Outpatient (CLI) | payer BC | END | disposition home or self-care (01) | LOC: C.LABSPEC 14:42 | PROVIDERS: ATTEND Urology | DX: N39.0 Urinary tract infection, site not specified (principal) ==

== ENCOUNTER 2016-08-31 17:42 | Inpatient (IN) | payer BC ==
[~2016-08-31] VITALS: Ht 188 cm; Wt 104.1 kg
[~2016-08-31 17:42] MED LIST changes: -AMINTAB13 PO; -ASCO100C2 PO; -CEPH-571 PO; -LDDP5 TD; -MILK150C PO; -MULT-506 PO; -NITR100C41 PO; -OXYC-57 PO; -ST J150T PO; -XRL10 PO
[2016-08-31] MEDS ORDERED: OXYC-57 PO (18:37)
[2016-08-31] MEDS ORDERED: ASCO100C2 PO (18:42)
[2016-08-31] MEDS ORDERED: MULT-506 PO (18:42)
[2016-08-31] MEDS ORDERED: MILK150C PO (18:42)
[2016-08-31] MEDS ORDERED: NITR100C41 PO (18:42)
[2016-08-31] MEDS ORDERED: AMINTAB13 PO (18:42)
[2016-08-31] MEDS ORDERED: ST J150T PO (18:42)
--- NOTE | 2016-08-31 18:46 | DIAGNOSTIC IMAGING REPORT ---
SINGLE VIEW CHEST CLINICAL HISTORY: Recent fall. Right chest wall pain. FINDINGS: An AP, portable, upright chest radiograph is compared to study dated 08/26/2016 and correlated with chest CT dated 08/25/2016. The examination is degraded by portable technique and motion artifact. The cardiomediastinal silhouette is unremarkable. There is mild elevation of the left hemidiaphragm. Left basilar airspace opacities likely represent atelectasis. The lungs are otherwise clear. No large pleural effusion or pneumothorax is seen. The bony thorax appears intact. IMPRESSION: 1. No acute cardiopulmonary abnormality. 2. Left basilar airspace opacities are typical for atelectasis. Electronically signed by: Jamin Bassett M.D. 08/31/2016 6:44 PM Dictated Date/Time: 08/31/2016 6:42 PM
[2016-08-31 19:02] LABS: BASO % 0.6 %; BASO ABS # 0.05 K/uL (0-0.2); COMPLETE YES; EOS % 5.5 %; HEMATOCRIT 35.6 % (42-52); IG% 0.2 %; LYMPH % 18.9 %; LYMPH ABS # 1.56 K/uL (1.2-3.4); MEAN CELL VOLUME 88.6 fL (80-100); MEAN CORPUSCULAR HEMOGLOBIN 30.1 pg (25-34); MEAN PLATELET VOLUME 8.8 fL (7.4-10.4); MONO % 8.8 %; PLATELET COUNT 298 K/uL (130-400); RED BLOOD COUNT 4.02 M/uL (4.7-6.1); WHITE BLOOD COUNT 8.25 K/uL (4.8-10.8)
[2016-08-31 19:25] LABS: PARTIAL THROMBOPLASTIN RATIO 1.1; PROTHROMBIN TIME (PATIENT) 10.9 SECONDS (9.0-12.0)
[2016-08-31 19:32] LABS: ALB/GLOB RATIO 0.9 (0.9-2); ALKALINE PHOSPHATASE 83 U/L (45-117); ALT/SGPT 32 U/L (12-78); AST/SGOT 22 U/L (15-37); BLOOD UREA NITROGEN 14 mg/dl (7-18); BUN/CREATININE RATIO 15.2 (10-20); CALCIUM 8.3 mg/dl (8.5-10.1); CARBON DIOXIDE 24 mmol/L (21-32); CHLORIDE 112 mmol/L (98-107); CREATININE 0.91 mg/dl (0.60-1.40); GLUCOSE 90 mg/dl (70-99); SODIUM 144 mmol/L (136-145)
--- NOTE | 2016-08-31 20:01 | DIAGNOSTIC IMAGING REPORT ---
ULTRASOUND BILATERAL LOWER EXTREMITY VENOUS CLINICAL HISTORY: Lower extremity pain and swelling. COMPARISON STUDY: No priors. TECHNIQUE: Real-time, grayscale, and color Doppler sonography of the deep veins of the right and left lower extremity was performed from the inguinal crease to the calf. Compression and augmentation were utilized. FINDINGS: There is no sonographic evidence of deep venous thrombosis identified in the right or left lower extremity. The common femoral, superficial femoral, and popliteal veins are patent and normally compressible bilaterally. The greater saphenous vein and the profunda femoris vein at the junction with the common femoral vein are clear in both legs. The visualized calf veins are patent bilaterally. IMPRESSION: There is no sonographic evidence of deep venous thrombosis identified in the right or left lower extremity. Electronically signed by: Jamin Bassett M.D. 08/31/2016 7:59 PM Dictated Date/Time: 08/31/2016 7:59 PM
[2016-08-31] MEDS ORDERED: OPTIRAY 320 IV PRN (20:30)
--- NOTE | 2016-08-31 20:34 | DIAGNOSTIC IMAGING REPORT ---
CT ANGIOGRAM OF THE CHEST CLINICAL HISTORY: Atypical chest pain. Fall one week ago. COMPARISON STUDY: Chest x-ray dated 08/31/2016. Chest CT dated 08/25/2016. TECHNIQUE: Following the IV administration of 116 cc of Optiray 320, CT angiogram of the chest was performed from the upper abdomen to the thoracic inlet utilizing the pulmonary embolus protocol. Images are reviewed in the axial, sagittal, and coronal planes. 3-D MIPS images are created and assessed. IV contrast was administered without complication. CT DOSE: 645.67 mGy.cm FINDINGS: Thyroid: Imaged portions of the thyroid gland are normal in size and attenuation. Thoracic aorta: The thoracic aorta is normal in caliber and demonstrates standard 3-vessel arch anatomy. No dissection is seen. Pulmonary vasculature: The pulmonary trunk is normal in caliber. There are segmental and subsegmental pulmonary emboli within branches of the right lower lobe pulmonary artery the remaining pulmonary vessels are clear. Heart: The heart is normal in size and configuration, and without pericardial effusion. Lungs and pleural spaces: Trace pleural effusions are identified. Significant bibasilar atelectasis is observed. There is no airspace consolidation typical for pneumonia. No pneumothorax is seen. The trachea and central airways are clear. Mediastinum: There is no mediastinal lymphadenopathy. Awa: Clear. Axillae: There is no axillary lymphadenopathy. Upper abdomen: There is a small hiatal hernia. Partially visualized upper abdominal viscera is otherwise within normal limits. Skeletal structures: No lytic or blastic bony lesions are seen. Arthritic change is noted in the shoulders, left greater than right. There are nondistracted right lateral 6th through 8th rib fractures. IMPRESSION: 1. There are segmental and subsegmental pulmonary emboli within branches of the right lower lobe pulmonary artery. 2. There are nondistracted right lateral 6th through 8th rib fractures. 3. No pneumothorax is seen. 4. Trace pleural effusions and bibasilar atelectasis. 5. Additional findings as above. Electronically signed by: Jamin Bassett M.D. 08/31/2016 8:32 PM Dictated Date/Time: 08/31/2016 8:22 PM
--- NOTE | 2016-08-31 22:24 | History and Physical ---
History & Physical Date & Time of Service: Aug 31, 2016 at 22:24 Chief Complaint: Swollen Feet,Ankles, Right Hand Primary Care Physician: Angel Major M.D. History of Present Illness Source: patient, family The patient is a 51-year-old male who presents emergency department complaining of right-sided rib cage pain, shortness of breath and swelling of bilateral lower extremities right worse than left progressively worsening since he fell from 25 feet and was admitted August 25 due to a lumbar fracture and pulmonary contusions. As he has been gradually trying to increase his activity pain is intensified, and reports that it is somewhat controlled with use of Percocet. He was also seen by urology and has stent removed yesterday. He's had no new injuries since discharge, and reports normal brain function, confirmed by family in attendance. Past Medical/Surgical History Medical Problems: (1) Allergic rhinitis Status: Chronic (2) Asthma Status: Chronic (3) GERD (gastroesophageal reflux disease) Status: Chronic (4) Hypertension Status: Chronic (5) Tinea pedis Status: Chronic Family History Cancer Diabetes mellitus Heart disease Hypertension Social History Smoking Status: Former Smoker Smokeless Tobacco Use: No Alcohol Use: none Drug Use: none Marital Status: Housing status: lives with family Occupational Status: employed Immunizations History of Influenza Vaccine: N/A History of Tetanus Vaccine?: Yes History of Pneumococcal: No History of Hepatitis B Vaccine: Unknown Multi-Drug Resistant Organisms History of MDRO: No Allergies Coded Allergies: Shellfish (Verified Allergy, Severe, ANAPHYLAXIS, 08/31/16) [place] (Verified Allergy, Severe, ANAPHYLAXIS, 08/31/16) [place] (Verified Allergy, Severe, ANAPHYLAXIS, 08/31/16) Penicillins (Verified Allergy, Unknown, UNKNOWN - HAPPENED CHILD, ) Sulfa Antibiotics (Verified Allergy, Unknown, HIVES, 08/31/16) Pantoprazole (Verified Adverse Reaction, Unknown, "NON-TOLERANT", 08/31/16) Home Medications Scheduled Amino Acids (Amino Acids Complex), 1 TAB PO DAILY Ascorbic Acid (Vitamin C), 1-5 TABS PO DAILY Fexofenadine Hcl (Mago Allergy), 1 TAB PO DAILY Fluticasone Prop/Salmeterol (Advair Diskus 500/50 60 Dose), 2 PUFFS INH BID Fluticasone Propionate (Nasal) (Flonase Allergy Relief), 1 SPRAY BRIDGETT QAM Lansoprazole (Prevacid), 15 MG PO QPM Lorazepam (Ativan), 1 MG PO QPM Milk Thistle (Silybum Marianum (Milk Thistle), Unknown Dose PO BID Multivitamin (Multivitamin), 1 TAB PO DAILY Nitrofurantoin Macrocrystal (Nitrofurantoin), 100 MG PO Q12 Prazosin Hcl (Prazosin), 1 MG PO HS Dulce Maria's Wort ([place] Perf ([place] Wort), Unknown Dose PO DAILY Topiramate (Topamax), 50 MG PO DAILY Scheduled PRN Oxycodone/Acetaminophen 5MG/325MG (Percocet 5MG/325MG), 1 TABLET PO Q4H PRN for Pain Valacyclovir (Valtrex), 500 MG PO BID PRN for PRN Review of Systems The patient denies palpitations, vision change, hearing change, sore throat, fevers, chills, sweats, weight change, fatigue, nausea, vomiting, abdominal pain , pelvic pain, blood in urine or stool, dysuria, urinary frequency or urgency, lightheadedness, dizziness, headache, memory loss, rash, abnormal bruising or bleeding, imbalance, focal weakness, numbness or tingling in arms or legs, neck pain, night sweats, or allergy symptoms. The review of systems is otherwise negative other than for that already noted above, and at least 10 systems have been reviewed. Physical Exam Vital Signs Date Time Temp Pulse Resp B/P Pulse Ox O2 Delivery O2 Flow Rate FiO2 08/31/16 21:08 69 15 98 08/31/16 21:01 145/81 08/31/16 20:03 80 19 136/79 99 08/31/16 19:07 71 08/31/16 19:00 67 17 129/72 99 Room Air 08/31/16 19:00 129/72 08/31/16 18:44 97 Room Air 08/31/16 17:46 37.0 80 16 126/77 94 The patient is awake, well-developed and adequately nourished, alert and oriented 3, normocephalic and atraumatic, lying in bed and in mild acute distress secondary to pain. HEENT--PERRL, EOMI, mucous membranes and oropharynx dry. Neck--supple, no JVD or bruits, thyroid normal, trachea midline, no adenopathy. Heart--normal S1 and S2, no extra beats, no murmurs, rubs or gallops. Lungs--clear bilaterally, with decreased excursion due to pain, no respiratory distress, no accessory muscle use. Abdomen--normal bowel sounds and soft, nontender and nondistended, no hernias or masses, no organomegaly. Extremities--left lower extremity-no cyanosis, clubbing or edema. There are good distal pulses b/l. Right lower extremity with 2+ pitting edema, multiple healing abrasions anterior tibial area with surrounding 2 cm erythema individually. Lowest abrasion with more prominent area of erythema inferiorly 4 x 6 cm there is also warm and tender to touch. Dermatologic--as noted above. Neurologic--cranial nerves II through XII grossly intact, motor and sensory examination normal. Rheumatologic--tender over right rib cage area of rib fractures. Psychiatric--normal affect. Diagnostics Laboratory Results Results Past 24 Hours Test 08/31/16 18:45 Range/Units White Blood Count 8.25 4.8-10.8 K/uL Red Blood Count 4.02 4.7-6.1 M/uL Hemoglobin 12.1 14.0-18.0 g/dL Hematocrit 35.6 42-52 % Mean Corpuscular Volume 88.6 80-100 fL Mean Corpuscular Hemoglobin 30.1 25-34 pg Mean Corpuscular Hemoglobin Concent 34.0 32-36 g/dl Platelet Count 298 130-400 K/uL Mean Platelet Volume 8.8 7.4-10.4 fL Neutrophils (%) (Auto) 66.0 % Lymphocytes (%) (Auto) 18.9 % Monocytes (%) (Auto) 8.8 % Eosinophils (%) (Auto) 5.5 % Basophils (%) (Auto) 0.6 % Neutrophils # (Auto) 5.44 1.4-6.5 K/uL Lymphocytes # (Auto) 1.56 1.2-3.4 K/uL Monocytes # (Auto) 0.73 0.11-0.59 K/uL Eosinophils # (Auto) 0.45 0-0.5 K/uL Basophils # (Auto) 0.05 0-0.2 K/uL RDW Standard Deviation 45.2 36.4-46.3 fL RDW Coefficient of Variation 13.8 11.5-14.5 % Immature Granulocyte % (Auto) 0.2 % Immature Granulocyte # (Auto) 0.02 0.00-0.02 K/uL Prothrombin Time 10.9 9.0-12.0 SECONDS Prothromb Time International Ratio 1.0 0.9-1.1 Activated Partial Thromboplast Time 27.6 21.0-31.0 SECONDS Partial Thromboplastin Ratio 1.1 D-Dimer 2250 0-500 ug/L FEU Sodium Level 144 136-145 mmol/L Potassium Level 4.0 3.5-5.1 mmol/L Chloride Level 112 98-107 mmol/L Carbon Dioxide Level 24 21-32 mmol/L Anion Gap 8.0 3-11 mmol/L Blood Urea Nitrogen 14 7-18 mg/dl Creatinine 0.91 0.60-1.40 mg/dl Est Creatinine Clear Calc Drug Dose 123.6 ml/min Estimated GFR () 112.7 Estimated GFR (Non- 97.2 BUN/Creatinine Ratio 15.2 10-20 Random Glucose 90 70-99 mg/dl Calcium Level 8.3 8.5-10.1 mg/dl Total Bilirubin 0.4 0.2-1 mg/dl Aspartate Amino Transf (AST/SGOT) 22 15-37 U/L Alanine Aminotransferase (ALT/SGPT) 32 12-78 U/L Alkaline Phosphatase 83 45-117 U/L Troponin I < 0.015 0-0.045 ng/ml Total Protein 6.8 6.4-8.2 gm/dl Albumin 3.2 3.4-5.0 gm/dl Globulin 3.6 2.5-4.0 gm/dl Albumin/Globulin Ratio 0.9 0.9-2 Chemistry Specimen Hemolysis Diagnostic Radiology ULTRASOUND BILATERAL LOWER EXTREMITY VENOUS CLINICAL HISTORY: Lower extremity pain and swelling. COMPARISON STUDY: No priors. TECHNIQUE: Real-time, grayscale, and color Doppler sonography of the deep veins of the right and left lower extremity was performed from the inguinal crease to the calf. Compression and augmentation were utilized. FINDINGS: There is no sonographic evidence of deep venous thrombosis identified in the right or left lower extremity. The common femoral, superficial femoral, and popliteal veins are patent and normally compressible bilaterally. The greater saphenous vein and the profunda femoris vein at the junction with the common femoral vein are clear in both legs. The visualized calf veins are patent bilaterally. IMPRESSION: There is no sonographic evidence of deep venous thrombosis identified in the right or left lower extremity. Electronically signed by: Jamin Bassett M.D. 08/31/2016 7:59 PM Patient Name: AMI LOWERY Unit Number: [id number] Dictated: 08/31/161841 Transcribed: 08/31/161841 EV Printed Date/Time: [~ rep prt dt]/[~ rep prt tm] [~ rep ct labl] - [~ rep ct ivnm] [facility] [place] [address] Dictated: 08/31/161841 Transcribed: 08/31/161841 EV Printed Date/Time: [~ rep prt dt]/[~ rep prt tm] [~ rep ct labl] - [~ rep ct ivnm] SINGLE VIEW CHEST CLINICAL HISTORY: Recent fall. Right chest wall pain. FINDINGS: An AP, portable, upright chest radiograph is compared to study dated 08/26/2016 and correlated with chest CT dated 08/25/2016. The examination is degraded by portable technique and motion artifact. The cardiomediastinal silhouette is unremarkable. There is mild elevation of the left hemidiaphragm. Left basilar airspace opacities likely represent atelectasis. The lungs are otherwise clear. No large pleural effusion or pneumothorax is seen. The bony thorax appears intact. IMPRESSION: 1. No acute cardiopulmonary abnormality. 2. Left basilar airspace opacities are typical for atelectasis. Electronically signed by: Jamin Bassett M.D. 08/31/2016 6:44 PM Dictated Date/Time: 08/31/2016 6:42 PM The status of this report is Signed. Draft = Not yet reviewed or approved by Radiologist. Signed = Reviewed and approved by Radiologist. <AttendingPhy></AttendingPhy> <FamilyPhy>Angel Major M.D.</FamilyPhy> < PrimaryPhy>Angel Major M.D.</PrimaryPhy> <UnitNumber>[id number]</UnitNumber > <VisitNumber>[id number]</VisitNumber> <PatientName>AMI LOWERY</ PatientName> <DateOfBirth>1965</DateOfBirth> <Location>[facility]</Location> < ServiceDate>08/31/16</ServiceDate> <MNE>ESINDI</MNE> <OrderingPhy>Regine Lauren PA-C</OrderingPhy> <OrderingPhyMNE>f rep ord dr [place]</OrderingPhyMNE> < DictatingPhyMNE>f rep dict dr [place]</DictatingPhyMNE> <CCListMNE>f rep ct mne</ CCListMNE> <AdmittingPhyMNE>f pt admit dr casillas</AdmittingPhyMNE> <AttendingPhyMNE >f pt attend dr casillas</AttendingPhyMNE> <ConsultingPhyMNE>f pt consult dr casillas</ConsultingPhyMNE> <FamilyPhyMNE>f pt fam dr casillas</FamilyPhyMNE> <OtherPhyMNE>f pt other dr casillas</OtherPhyMNE> < PrimaryPhyMNE>f pt prim care dr casillas</PrimaryPhyMNE> <ReferringPhyMNE>f pt referring dr casillas</ReferringPhyMNE> Patient Name: AMI LOWERY Unit Number: [id number] Dictated: 08/31/162021 Transcribed: 08/31/162021 EV Printed Date/Time: [~ rep prt dt]/[~ rep prt tm] [~ rep ct labl] - [~ rep ct ivnm] [facility] [place] [address] Dictated: 08/31/162021 Transcribed: 08/31/162021 EV Printed Date/Time: [~ rep prt dt]/[~ rep prt tm] [~ rep ct labl] - [~ rep ct ivnm] [~ rep ct add3]] CT ANGIOGRAM OF THE CHEST CLINICAL HISTORY: Atypical chest pain. Fall one week ago. COMPARISON STUDY: Chest x-ray dated 08/31/2016. Chest CT dated 08/25/2016. TECHNIQUE: Following the IV administration of 116 cc of Optiray 320, CT angiogram of the chest was performed from the upper abdomen to the thoracic inlet utilizing the pulmonary embolus protocol. Images are reviewed in the axial, sagittal, and coronal planes. 3-D MIPS images are created and assessed. IV contrast was administered without complication. CT DOSE: 645.67 mGy.cm FINDINGS: Thyroid: Imaged portions of the thyroid gland are normal in size and attenuation. Thoracic aorta: The thoracic aorta is normal in caliber and demonstrates standard 3-vessel arch anatomy. No dissection is seen. Pulmonary vasculature: The pulmonary trunk is normal in caliber. There are segmental and subsegmental pulmonary emboli within branches of the right lower lobe pulmonary artery the remaining pulmonary vessels are clear. Heart: The heart is normal in size and configuration, and without pericardial effusion. Lungs and pleural spaces: Trace pleural effusions are identified. Significant bibasilar atelectasis is observed. There is no airspace consolidation typical for pneumonia. No pneumothorax is seen. The trachea and central airways are clear. Mediastinum: There is no mediastinal lymphadenopathy. Awa: Clear. Axillae: There is no axillary lymphadenopathy. Upper abdomen: There is a small hiatal hernia. Partially visualized upper abdominal viscera is otherwise within normal limits. Skeletal structures: No lytic or blastic bony lesions are seen. Arthritic change is noted in the shoulders, left greater than right. There are nondistracted right lateral 6th through 8th rib fractures. IMPRESSION: 1. There are segmental and subsegmental pulmonary emboli within branches of the right lower lobe pulmonary artery. 2. There are nondistracted right lateral 6th through 8th rib fractures. 3. No pneumothorax is seen. 4. Trace pleural effusions and bibasilar atelectasis. 5. Additional findings as above. Electronically signed by: Jamin Bassett M.D. 08/31/2016 8:32 PM Dictated Date/Time: 08/31/2016 8:22 PM The status of this report is Signed. Draft = Not yet reviewed or approved by Radiologist. Signed = Reviewed and approved by Radiologist. <AttendingPhy></AttendingPhy> <FamilyPhy>Angel Major M.D.</FamilyPhy> < PrimaryPhy>Angel Major M.D.</PrimaryPhy> <UnitNumber>[id number]</UnitNumber > <VisitNumber>[id number]</VisitNumber> <PatientName>AMI LOWERY</ PatientName> <DateOfBirth>1965</DateOfBirth> <Location>[facility]</Location> < ServiceDate>08/31/16</ServiceDate> <MNE>ESINDI</MNE> <OrderingPhy>Regine Lauren PA-C</OrderingPhy> <OrderingPhyMNE>f rep ord dr casillas</OrderingPhyMNE> < DictatingPhyMNE>f rep dict dr [place]</DictatingPhyMNE> <CCListMNE>f rep ct snoja</ CCListMNE> <AdmittingPhyMNE>f pt admit dr casillas</AdmittingPhyMNE> <AttendingPhyMNE >f pt attend dr casillas</AttendingPhyMNE> <ConsultingPhyMNE>f pt consult dr casillas</ConsultingPhyMNE> <FamilyPhyMNE>f pt fam dr casillas</FamilyPhyMNE> <OtherPhyMNE>f pt other dr casillas</OtherPhyMNE> < PrimaryPhyMNE>f pt prim care dr casillas</PrimaryPhyMNE> <ReferringPhyMNE>f pt referring dr casillas</ReferringPhyMNE> EKG EKG shows normal sinus rhythm at 70 bpm, incomplete right bundle branch block, no acute ST-T changes. Impression Assessment and Plan Right lower extremity cellulitis secondary to trauma/acute venous insufficiency- -the patient will be admitted to the medical floor. He'll be started on vancomycin IV per renal dosing, and aztreonam 2000 mg IV every 8 hours. Will follow clinical examination. Of note, venous Dopplers are negative for DVT. Right lower lobe pulmonary emboli--lower extremities negative for DVT. Start Xarelto 15 mg by mouth twice a day for 21 days, and 20 mg by mouth daily. Nondistracted right lateral sixth through eighth rib fractures--he does have Percocet at home used when necessary and will continue here. Place on Lidoderm patch every morning over fracture areas, and while in hospital will also have available morphine sulfate 2-4 mg IV every 2 hours when necessary. Blocked ureteral stent--removed yesterday. Hold nitrofurantoin, as will be covered by antibiotics above. Asthma--continue Advair discus 500/50, 2 puffs twice a day GERD--change lansoprazole 15 mg by mouth every afternoon to famotidine 20 mg by mouth every morning. Anxiety/Insomnia--continue lorazepam 1 mg by mouth every evening. Change prazosin 1 mg by mouth at bedtime to terazosin 1 mg by mouth at bedtime for formulary interchange. Continue Topamax 50 mg by mouth daily, hold Che's wort. Seasonal allergy--continue fexofenadine 100 mg by mouth daily and Flonase allergy relief 1 spray each nostril every morning. Level of Care Med/Surg Advanced Directives Existing Advance Directive: No Existing Living Will: No Existing Power of Parking Garage Manager: No Resuscitation Status FULL RESUSCITATION VTE Prophylaxis VTE Risk Assessment Done? Y/N: Yes Risk Level: High Given or contraindicated: Other Anticoagulation (Xarelto) Social Service Consult None Apply
[2016-08-31] MEDS ORDERED: VANCOMYCIN INJ 1,000 MG in SODIUM CHLORIDE 0.9% 250ML 250 ML IV STA (22:25)
[2016-08-31] MEDS ORDERED: RIVAROXABAN 10 MG TAB PO STA (22:44)
[2016-08-31] MEDS ORDERED: ONDANSETRON INJ 2 MG/ML 2 ML VIAL IV PRN (22:45)
[2016-08-31] MEDS ORDERED: ACETAMINOPHEN 325 MG TAB PO PRN (22:45)
[2016-08-31] MEDS ORDERED: MoRPHine SULFATE 2 MG/ML CARP IV PRN (22:45)
[2016-08-31] MEDS ORDERED: ZOLPIDEM TARTRATE 5 MG TAB PO PRN (22:45)
[2016-08-31] MEDS ORDERED: MoRPHine SULFATE 4 MG/ML 1 ML CARP\\VIAL IV PRN (22:45)
[2016-08-31] MEDS ORDERED: VANCOMYCIN INJ 2,600 MG in SODIUM CHLORIDE 0.9% 500ML 500 ML IV STA (22:47)
[2016-08-31] MEDS ORDERED: AZTREONAM CONSULT ACTIVE PRN ×2 (23:00)
[2016-08-31] MEDS ORDERED: VANCOMYCIN CONSULT ACTIVE PRN (23:00)
[2016-08-31] MEDS: OXYCODONE/ACETAMINOPHEN 5-325 TAB PO PRN (23:04)
--- NOTE | 2016-08-31 23:55 | EMERGENCY ROOM VISIT NOTE ---
History First contact with patient: 17:56 Chief Complaint: FOOT PAIN Stated Complaint: SWOLLEN FEET,ANKLES, RIGHT HAND History of Present Illness The patient is a 51 year old male who presents to the Emergency Room with complaints of right-sided rib pain as well as swelling of both of his feet. The patient reports that he recently had a fall of 25 feet and was admitted here due to a lumbar fracture and pulmonary contusions. The patient was discharged 5 days ago. He reports that he has had continued pain in the ribs and back. The patient reports that today, he noticed swelling in both of his feet which is very unusual for him. The patient has worsening pain in his right ribs with movement and deep breath. He rates the discomfort a 9/10 and states it is controlled with Percocet. The patient has also been seen Dr. Paulson for renal calculi and states that he had a stent removed yesterday. The patient does note that he has been more sedentary than usual recently due to this injury. He is not a smoker and denies any recent long travel. He denies any personal or family history of blood clots. The patient denies any shortness of breath, abdominal pain, nausea, vomiting or fevers. Review of Systems A complete 10-point Review of Systems was discussed with the patient, with pertinent positives and negatives listed in the History of Present Illness. All remaining Review of Systems questions can be considered negative unless otherwise specified. Past Medical/Surgical History Medical Problems: (1) Allergic rhinitis (2) Asthma (3) Bilateral pulmonary contusion (4) blocked ureteral stent (5) Cellulitis of right lower extremity (6) GERD (gastroesophageal reflux disease) (7) Hypertension (8) Pulmonary embolism (9) Tinea pedis Family History Cancer Diabetes mellitus Heart disease Hypertension Social History Smoking Status: Former Smoker Drug Use: none Marital Status: Housing Status: lives with significant other Occupation Status: employed Current/Historical Medications Scheduled Amino Acids (Amino Acids Complex), 1 TAB PO DAILY Ascorbic Acid (Vitamin C), 1-5 TABS PO DAILY Fexofenadine Hcl (Mago Allergy), 1 TAB PO DAILY Fluticasone Prop/Salmeterol (Advair Diskus 500/50 60 Dose), 2 PUFFS INH BID Fluticasone Propionate (Nasal) (Flonase Allergy Relief), 1 SPRAY BRIDGETT QAM Lansoprazole (Prevacid), 15 MG PO QPM Lorazepam (Ativan), 1 MG PO QPM Milk Thistle (Silybum Marianum (Milk Thistle), Unknown Dose PO BID Multivitamin (Multivitamin), 1 TAB PO DAILY Nitrofurantoin Macrocrystal (Nitrofurantoin), 100 MG PO Q12 Prazosin Hcl (Prazosin), 1 MG PO HS Dulce Maria's Wort ([place] Perf ([place] Wort), Unknown Dose PO DAILY Topiramate (Topamax), 50 MG PO DAILY Scheduled PRN Oxycodone/Acetaminophen 5MG/325MG (Percocet 5MG/325MG), 1 TABLET PO Q4H PRN for Pain Valacyclovir (Valtrex), 500 MG PO BID PRN for PRN Allergies Coded Allergies: Shellfish (Verified Allergy, Severe, ANAPHYLAXIS, 08/31/16) [place] (Verified Allergy, Severe, ANAPHYLAXIS, 08/31/16) [place] (Verified Allergy, Severe, ANAPHYLAXIS, 08/31/16) Penicillins (Verified Allergy, Unknown, UNKNOWN - HAPPENED CHILD, ) Sulfa Antibiotics (Verified Allergy, Unknown, HIVES, 08/31/16) Pantoprazole (Verified Adverse Reaction, Unknown, "NON-TOLERANT", 08/31/16) Physical Exam Vital Signs Date Time Temp Pulse Resp B/P Pulse Ox O2 Delivery O2 Flow Rate FiO2 08/31/16 22:18 65 12 08/31/16 22:13 66 14 132/78 98 08/31/16 21:13 69 12 99 08/31/16 21:08 69 15 98 08/31/16 21:01 145/81 08/31/16 20:03 80 19 136/79 99 08/31/16 19:07 71 08/31/16 19:00 67 17 129/72 99 Room Air 08/31/16 19:00 129/72 08/31/16 18:44 97 Room Air 08/31/16 17:46 37.0 80 16 126/77 94 Physical Exam VITALS: Vitals are noted on the nurse's note and reviewed by myself. Vital signs stable. GENERAL: This is a 51-year-old male, in no acute distress, nondiaphoretic, well- developed well-nourished. SKIN: Capillary reflex less than 2 seconds. HEENT: Normocephalic. PERRLA. EOMI. Nares patent. Mucous membranes moist. Neck is supple without nuchal rigidity. HEART: Regular rate and rhythm without murmurs gallops or rubs. LUNGS: Clear to auscultation bilaterally without wheezes, rales or rhonchi. No retractions or accessory muscle use. ABDOMEN: Positive bowel sounds x 4. Soft, nontender to palpation. EXTREMITIES: 2+ pitting edema bilaterally. There is an area of erythema and warmth of the right lateral lower leg. There are several abrasions to the right anterior lower leg. There is no induration or fluctuance. NEURO: Patient was alert and oriented to person place and time. Normal sensation to light and sharp touch. Medical Decision & Procedures ER Provider Diagnostic Interpretation: CT ANGIOGRAM OF THE CHEST IMPRESSION: 1. There are segmental and subsegmental pulmonary emboli within branches of the right lower lobe pulmonary artery. 2. There are nondistracted right lateral 6th through 8th rib fractures. 3. No pneumothorax is seen. 4. Trace pleural effusions and bibasilar atelectasis. 5. Additional findings as above. SINGLE VIEW CHEST IMPRESSION: 1. No acute cardiopulmonary abnormality. 2. Left basilar airspace opacities are typical for atelectasis. ULTRASOUND BILATERAL LOWER EXTREMITY VENOUS IMPRESSION: There is no sonographic evidence of deep venous thrombosis identified in the right or left lower extremity. Laboratory Results Test 08/31/16 18:45 D-Dimer 2250 ug/L FEU (0-500) Troponin I < 0.015 ng/ml (0-0.045) Globulin 3.6 gm/dl (2.5-4.0) Albumin/Globulin Ratio 0.9 (0.9-2) Chemistry Specimen Hemolysis Medications Administered ECG Indication: chest pain Rate (beats per minute): 70 Rhythm: normal sinus Findings: RBBB (incomplete), no acute ischemic change, no ectopy Comparison ECG Date: incomplete RBBB present Medical Decision Differential diagnosis includes pulmonary embolism, pneumonia, rib fracture, rib contusion, cellulitis, DVT, among others. The patient was evaluated as above. Labs were drawn and IV access was obtained. Imaging studies were performed and read by radiology as above. The patient declined analgesics as he had taken oral pain medication prior to coming to the emergency department. The patient was reassessed multiple times during their stay in the emergency department and remained in stable condition. The patient is a 51-year-old male who presents today complaining of worsening right rib pain and leg swelling. Labs revealed no leukocytosis, anemia or concerning electrolyte abnormalities. D-dimer was significantly elevated. Troponin was not elevated. EKG did show a new right bundle branch block. Ultrasound of the bilateral lower extremities was negative for DVT. Chest x- ray showed no evidence of pneumothorax or pneumonia. CTA of the chest did show right-sided pulmonary emboli. Additionally, the patient appears to be developing a cellulitis of his right lower extremity. Findings were discussed with the patient. He will be admitted for further evaluation. Findings were discussed with the [facility] hospitalist, who agreed to evaluate the patient. The patient's case was reviewed with Dr. Martinez, ED attending physician, who agreed with my assessment and treatment plan. Impression Primary Impression: Cellulitis of right lower extremity Additional Impression: Pulmonary embolism Departure Information Referrals Angel Major M.D. (PCP) Patient Instructions [facility] Problem Qualifiers Additional Impression:
[2016-09-01 00:15] VITALS: BP 139/81; PULSE 92; TEMP 36.7; O2SAT 97; Ht 188 cm; Wt 104.1 kg
[2016-09-01] MEDS: AZTREONAM IV 2,000 MG in DEXTROSE 5% 100ML 100 ML IV SCH ×3 (02:08→18:21)
[2016-09-01] MEDS: OXYCODONE/ACETAMINOPHEN 5-325 TAB PO PRN ×3 (05:24→21:10)
[2016-09-01 06:34] LABS: BASO % 0.4 %; BASO ABS # 0.03 K/uL (0-0.2); COMPLETE YES; EOS % 7.4 %; HEMATOCRIT 34.8 % (42-52); IG% 0.4 %; LYMPH % 25.2 %; LYMPH ABS # 1.73 K/uL (1.2-3.4); MEAN CELL VOLUME 90.6 fL (80-100); MEAN CORPUSCULAR HEMOGLOBIN 30.5 pg (25-34); MEAN CORPUSCULAR HGB CONC 33.6 g/dl (32-36); MEAN PLATELET VOLUME 8.7 fL (7.4-10.4); NEUT % 54.6 %; PLATELET COUNT 269 K/uL (130-400); RED BLOOD COUNT 3.84 M/uL (4.7-6.1); WHITE BLOOD COUNT 6.86 K/uL (4.8-10.8)
[2016-09-01 06:43] LABS: INR 1.2 (0.9-1.1); PARTIAL THROMBOPLASTIN RATIO 1.5
[2016-09-01 07:04] LABS: BUN/CREATININE RATIO 12.5 (10-20); CALCIUM 8.2 mg/dl (8.5-10.1); CREATININE 0.85 mg/dl (0.60-1.40); MAGNESIUM 2.2 mg/dl (1.8-2.4); POTASSIUM 3.6 mmol/L (3.5-5.1)
[2016-09-01 07:59] VITALS: BP 110/67; PULSE 70; TEMP 36.4; O2SAT 97
[2016-09-01] MEDS: VANCOMYCIN INJ 1,400 MG in SODIUM CHLORIDE 0.9% 500ML 500 ML IV SCH ×3 (08:08→23:39)
[2016-09-01] MEDS: LACTOBACILLUS ACIDOPHILUS (FLORANEX) TAB PO SCH ×3 (08:09→18:30)
[2016-09-01] MEDS: FLUTICASONE/SALMETEROL (ADVAIR) 500/50 INH 14 PUFF INH SCH ×2 (09:25→21:11)
[2016-09-01] MEDS: FLUTICASONE PROPIONATE NA SPR 16 GM BTL NAE SCH (09:26)
[2016-09-01] MEDS: MULTIVITAMIN TAB PO SCH (09:27)
[2016-09-01] MEDS: FEXOFENADINE HCL 60 MG TAB PO SCH (09:27)
[2016-09-01] MEDS: FAMOTIDINE 20 MG TAB PO SCH (09:27)
[2016-09-01] MEDS: RIVAROXABAN 10 MG TAB PO SCH ×2 (09:28→21:13)
[2016-09-01] MEDS: LIDODERM (LIDOCAINE) PATCH 5% TD SCH (09:29)
[2016-09-01] MEDS: TOPIRAMATE 25 MG TAB PO SCH (12:44)
[2016-09-01 15:17] VITALS: BP 119/71; PULSE 68; TEMP 36.8; O2SAT 97
[2016-09-01] MEDS ORDERED: LORAZEPAM 1 MG TAB PO SCH (21:00)
[2016-09-01 23:00] VITALS: BP 112/74; PULSE 71; TEMP 36.8; O2SAT 98
--- NOTE | 2016-09-01 23:08 | Progress Note ---
Subjective Date of Service: Sep 01, 2016. Subjective Pt evaluation today including: conversation w/ patient, physical exam, chart review, lab review, review of studies, review of inpatient medication list Pain: Controlled with morphine and lidocaine patch Voiding: no voiding problems, no incontinence Pt is feeling better. Pt denies Cp, Sob, dizziness and LOC.Pt denies fever, chills, rigors, and sweats. Pt denies abd pain, nausea, vomiting and diarrhea.Pt states pain in the rib and right lower extremity is well controlled with medication. Problem List Medical Problems: (1) Fracture of transverse process of lumbar vertebra Status: Acute (2) Obstructive uropathy Status: Acute (3) Obstructive uropathy Status: Acute (4) Pulmonary contusion Status: Acute (5) Renal colic on left side Status: Acute Review of Systems All Other Systems: Reviewed and Negative Medications Medications (Trade) Dose Ordered Sig/Mikel Route Start Time Stop Time Status Last Admin Dose Admin Aztreonam/Dextrose (Azactam IV/D5 100ml) 110 ml @ 100 mls/hr Q8H IV 09/01/16 02:00 09/11/16 01:59 09/01/16 18:21 100 MLS/HR Lactobacillus Acidophilus (Floranex Tab) 4 tab TIDM PO 09/01/16 08:00 10/01/16 07:59 09/01/16 18:30 4 TAB Lidocaine (Lidoderm Patch 5%) 1 patch QAM TD 09/01/16 09:00 10/01/16 08:59 09/01/16 09:29 1 PATCH Miscellaneous (Remove Lidoderm Patch) 1 ea DAILY@21 N/A 09/01/16 21:00 10/01/16 20:59 09/01/16 21:11 1 EA Rivaroxaban (Xarelto Tab) 15 mg BID PO 09/01/16 09:00 10/01/16 08:59 09/01/16 21:13 15 MG Fexofenadine HCl (Mago Tab) 60 mg DAILY PO 09/01/16 09:00 10/01/16 08:59 09/01/16 09:27 60 MG Salmeterol Xinafoate/ Fluticasone (Advair Diskus 500/50 Inh) 2 puff BID INH 09/01/16 09:00 10/01/16 08:59 09/01/16 21:11 2 PUFF Fluticasone Propionate (Flonase Nasal [place]) 1 sprays QAM BRIDGETT 09/01/16 09:00 10/01/16 08:59 09/01/16 09:26 1 SPRAYS Lorazepam (Ativan Tab) 1 mg QPM PO 09/01/16 21:00 10/01/16 20:59 09/01/16 21:10 1 MG Multivitamins (Multivitamin Tab) 1 tab DAILY PO 09/01/16 09:00 10/01/16 08:59 09/01/16 09:27 1 TAB Topiramate (Topamax Tab) 50 mg DAILY PO 09/01/16 09:00 10/01/16 08:59 09/01/16 12:44 50 MG Terazosin HCl (Hytrin Cap) 1 mg HS PO 09/01/16 21:00 10/01/16 20:59 09/01/16 21:11 1 MG Famotidine 20 mg 20 mg QAM PO 09/01/16 09:00 10/01/16 08:59 09/01/16 09:27 20 MG Vancomycin HCl/ Sodium Chloride (Vancomycin Inj/ Nss 500ml) 528 ml @ 200 mls/hr Q8H IV 09/01/16 08:00 09/11/16 07:59 09/01/16 15:44 200 MLS/HR Objective Vital Signs Date Time Temp Pulse Resp B/P Pulse Ox O2 Delivery O2 Flow Rate FiO2 09/01/16 15:30 Room Air 09/01/16 15:17 36.8 68 17 119/71 97 Room Air 09/01/16 08:00 Room Air 09/01/16 07:59 36.4 70 16 110/67 97 Room Air 09/01/16 00:15 36.7 92 16 139/81 97 Room Air 09/01/16 00:15 Room Air 08/31/16 23:58 65 14 140/85 100 08/31/16 23:18 67 14 Physical Exam General Appearance: WD/WN, no apparent distress Neck: supple, no adenopathy, no JVD Respiratory/Chest: lungs clear, normal breath sounds, no respiratory distress, no accessory muscle use Cardiovascular: regular rate, rhythm, no gallop, no JVD, no murmur Abdomen: normal bowel sounds, non tender, soft Extremities: non-tender, no calf tenderness Neurologic/Psychiatric: alert, normal mood/affect, oriented x 3 Lymphatic: no adenopathy Laboratory Results Last 24 Hours Test 09/01/16 06:15 White Blood Count 6.86 K/uL Red Blood Count 3.84 M/uL Hemoglobin 11.7 g/dL Hematocrit 34.8 % Mean Corpuscular Volume 90.6 fL Mean Corpuscular Hemoglobin 30.5 pg Mean Corpuscular Hemoglobin Concent 33.6 g/dl Platelet Count 269 K/uL Mean Platelet Volume 8.7 fL Neutrophils (%) (Auto) 54.6 % Lymphocytes (%) (Auto) 25.2 % Monocytes (%) (Auto) 12.0 % Eosinophils (%) (Auto) 7.4 % Basophils (%) (Auto) 0.4 % Neutrophils # (Auto) 3.74 K/uL Lymphocytes # (Auto) 1.73 K/uL Monocytes # (Auto) 0.82 K/uL Eosinophils # (Auto) 0.51 K/uL Basophils # (Auto) 0.03 K/uL RDW Standard Deviation 46.4 fL RDW Coefficient of Variation 13.9 % Immature Granulocyte % (Auto) 0.4 % Immature Granulocyte # (Auto) 0.03 K/uL Prothrombin Time 13.0 SECONDS Prothromb Time International Ratio 1.2 Activated Partial Thromboplast Time 39.9 SECONDS Partial Thromboplastin Ratio 1.5 Sodium Level 143 mmol/L Potassium Level 3.6 mmol/L Chloride Level 112 mmol/L Carbon Dioxide Level 24 mmol/L Anion Gap 7.0 mmol/L Blood Urea Nitrogen 11 mg/dl Creatinine 0.85 mg/dl Est Creatinine Clear Calc Drug Dose 132.3 ml/min Estimated GFR () 116.9 Estimated GFR (Non- 100.9 BUN/Creatinine Ratio 12.5 Random Glucose 100 mg/dl Calcium Level 8.2 mg/dl Magnesium Level 2.2 mg/dl Total Bilirubin 0.6 mg/dl Direct Bilirubin 0.2 mg/dl Aspartate Amino Transf (AST/SGOT) 12 U/L Alanine Aminotransferase (ALT/SGPT) 25 U/L Alkaline Phosphatase 70 U/L Total Protein 6.0 gm/dl Albumin 2.9 gm/dl Assessment and Plan 1) Right lower extremity cellulitis secondary to trauma/acute venous insufficiency -- Continue vancomycin IV per renal dosing, and aztreonam 2000 mg IV every 8 hours. -- venous Doppler are negative for DVT. 2) Right lower lobe pulmonary emboli -- lower extremities negative for DVT --Continue Xarelto 15 mg by mouth twice a day for 21 days, and 20 mg by mouth daily. 3) Nondistracted right lateral sixth through eighth rib fractures -- Lidoderm patch every morning over fracture areas, -- morphine sulfate IV Prn 4) Blocked ureteral stent -- Removed yesterday. 5) Asthma --continue Advair discus 500/50, 2 puffs twice a day 6) GERD -- famotidine 20 mg by mouth every morning. 7) Anxiety/Insomnia -- continue lorazepam 1 mg by mouth every evening. -- Continue Topamax 50 mg by mouth daily, hold Prosser's wort. 8) Seasonal allergy--continue fexofenadine and Flonase Continued [facility] stay due to: multiple IV medications needed Discharge planning: home with home health
[2016-09-01] MEDS ORDERED: VANCOMYCIN TROUGH SCH (23:30)
[2016-09-02] MEDS: AZTREONAM IV 2,000 MG in DEXTROSE 5% 100ML 100 ML IV SCH ×2 (02:33→11:00)
[2016-09-02] MEDS: OXYCODONE/ACETAMINOPHEN 5-325 TAB PO PRN ×2 (02:33→08:59)
[2016-09-02 07:02] LABS: BASO % 0.5 %; BASO ABS # 0.03 K/uL (0-0.2); COMPLETE YES; EOS % 7.1 %; HEMATOCRIT 36.7 % (42-52); IG% 0.4 %; LYMPH % 26.5 %; MEAN CELL VOLUME 90.6 fL (80-100); MEAN CORPUSCULAR HEMOGLOBIN 30.4 pg (25-34); MEAN CORPUSCULAR HGB CONC 33.5 g/dl (32-36); MEAN PLATELET VOLUME 8.9 fL (7.4-10.4); MONO % 11.9 %; NEUT % 53.6 %; PLATELET COUNT 293 K/uL (130-400); RED BLOOD COUNT 4.05 M/uL (4.7-6.1); WHITE BLOOD COUNT 5.65 K/uL (4.8-10.8)
[2016-09-02 07:13] LABS: INR 1.2 (0.9-1.1); PARTIAL THROMBOPLASTIN RATIO 1.4; PROTHROMBIN TIME (PATIENT) 12.9 SECONDS (9.0-12.0)
[2016-09-02] MEDS: VANCOMYCIN INJ 1,400 MG in SODIUM CHLORIDE 0.9% 500ML 500 ML IV SCH (07:32)
[2016-09-02 07:45] VITALS: O2SAT 96
[2016-09-02 07:47] VITALS: BP 110/70; PULSE 66; TEMP 36.7; O2SAT 96
[2016-09-02 07:50] LABS: BUN/CREATININE RATIO 11.7 (10-20); CALCIUM 8.6 mg/dl (8.5-10.1); CREATININE 0.86 mg/dl (0.60-1.40); MAGNESIUM 2.2 mg/dl (1.8-2.4); POTASSIUM 3.8 mmol/L (3.5-5.1)
[2016-09-02 08:16] VITALS: O2SAT 96
[2016-09-02] MEDS: LACTOBACILLUS ACIDOPHILUS (FLORANEX) TAB PO SCH ×2 (08:52→12:41)
[2016-09-02] MEDS: FLUTICASONE PROPIONATE NA SPR 16 GM BTL NAE SCH (08:53)
[2016-09-02] MEDS: FLUTICASONE/SALMETEROL (ADVAIR) 500/50 INH 14 PUFF INH SCH (08:53)
[2016-09-02] MEDS: MULTIVITAMIN TAB PO SCH (08:54)
[2016-09-02] MEDS: FEXOFENADINE HCL 60 MG TAB PO SCH (08:54)
[2016-09-02] MEDS: TOPIRAMATE 25 MG TAB PO SCH (08:55)
[2016-09-02] MEDS: LIDODERM (LIDOCAINE) PATCH 5% TD SCH (08:57)
[2016-09-02] MEDS: RIVAROXABAN 10 MG TAB PO SCH (08:58)
[2016-09-02] MEDS: FAMOTIDINE 20 MG TAB PO SCH (09:05)
[2016-09-02] MEDS ORDERED: XRL10 PO (10:50)
[2016-09-02] MEDS ORDERED: CEPH-571 PO (10:50)
[2016-09-02] MEDS ORDERED: LDDP5 TD (10:50)
--- NOTE | 2016-09-02 11:00 | Discharge Instructions ---
Discharge Instructions Date of Service Sep 02, 2016. (Jessica Arenas PA-C) Admission Reason for Admission: Cellulitis Of Rle, Pulmonary Embolism (Jessica Arenas PA-C) Discharge Discharge Diagnosis / Problem: Pulmonary Embolism (Jessica Arenas PA-C) Discharge Goals Goal(s): Decrease discomfort, Improve function, Increase independence (Jessica Arenas PA-C) Activity Recommendations Activity Limitations: as noted below Lifting Limitations: gradually increase as tolerated Exercise/Sports Limitations: as tolerated May Resume Sexual Activity: when tolerated Shower/Bathe: no limitations . (Jessica Arenas PA-C) Instructions / Follow-Up Instructions / Follow-Up Right Lower Extremity Cellulitis: - This is likely due to trauma and may be the area where the blood clot originated from - Venous Dopplers of the leg was performed and did not show evidence of a blood clot and it appears that if it was present it is the reason there is a clot in your lung - You will be provided a prescription for Keflex 500 mg twice a day which will cover the leg redness as well as coverage for the removed stent -- You may discontinue the Nitrofurantoin (Macrobid) at this time as Keflex will cover Right Lower Lobe Pulmonary Emboli: Blood Clot in Lung - You will be placed on Xarelto (blood thinner) 15 mg twice a day for 21 days total -- Today is DAY #07/30 - please take on dose this evening as you already received a morning dose -- After the 21 days you will take Xarelto 20 mg daily - and your family doctor can continue this - We will set you up with an appointment for a Diamond Picker (blood doctor) - they can evaluate you for underlying cause of development of the blood clots -- They may also decide to manage your blood thinner once established - likely due to your injury and the inflammation that is caused by such you were at more risk for blood clot development. - Be careful in regards to injury while on blood thinners. If you do cut yourself, apply pressure the the area until bleeding stops. You blood will still clot but will take a little longer than other people who are not on thinners Rib Fractures: - Continue Percocet as previously prescribed - We will give you a prescription for Lidoderm patches that can be applied to the ribs -- You can wear these for 12 hours then remove for 12 hours before applying a new patch Reasons to Return: - Call 9-11 if you develop new shortness of breath, chest pain, or the swelling in your legs worsens or you have pain Follow-Up: - Please see Dr. Major's Physician Certified Energy Manager on FridaySeptember 09 at 11:00 AM - Please see Dr. Cruz (blood doctor) on September 06 at 12:30 (Jessica Arenas PA-C) Current Hospital Diet Patient's current hospital diet: Regular Diet (Jessica Arenas PA-C) Discharge Diet Recommended Diet: Regular Diet (Jessica Arenas PA-C) Pending Studies Studies pending at discharge: no (Jessica Arenas PA-C) Medical Emergencies . Who to Call and When: Medical Emergencies: If at any time you feel your situation is an emergency, please call 911 immediately. . (Jessica Arenas PA-C) Non-Emergent Contact Non-Emergency issues call your: Primary Care Provider Call Non-Emergent contact if: you have a fever, your pain is concerning you, you have any medication questions . (Jessica Arenas PA-C) . "Provider Documentation" section prepared by Jessica Arenas. (Jessica Arenas PA-C) VTE Core Measure Inpt VTE Proph given/why not?: Other Anticoagulation (Xarelto) (Jessica Arenas PA-C)
--- NOTE | 2016-09-02 11:04 | Pharmacy Progress Note ---
Pharmacy Antibiotic Prog Note Date of Service: Sep 02, 2016. Subjective: The patient is currently receiving Vancomycin 1400 mg (~13.5mg/kg) IV every 8 hours for cellulitis. The patient is currently on day # 08/16 of Vancomycin IV therapy. Objective: Height (Feet): 6 Height (Inches): 2.00 Weight (Kilograms): 104.100 Levels: Item Value Date Time Vancomycin Level Trough 16.4 mcg/ml 09/01/16 2325 Lab Results (24hrs): Laboratory Tests Test 09/02/16 06:34 BUN/Creatinine Ratio 11.7 Blood Urea Nitrogen 10 mg/dl Creatinine 0.86 mg/dl White Blood Count 5.65 K/uL Red Blood Count 4.05 M/uL Hemoglobin 12.3 g/dL Hematocrit 36.7 % Mean Corpuscular Volume 90.6 fL Mean Corpuscular Hemoglobin 30.4 pg Mean Corpuscular Hemoglobin Concent 33.5 g/dl Platelet Count 293 K/uL Mean Platelet Volume 8.9 fL Neutrophils (%) (Auto) 53.6 % Lymphocytes (%) (Auto) 26.5 % Monocytes (%) (Auto) 11.9 % Eosinophils (%) (Auto) 7.1 % Basophils (%) (Auto) 0.5 % Neutrophils # (Auto) 3.03 K/uL Lymphocytes # (Auto) 1.50 K/uL Monocytes # (Auto) 0.67 K/uL Eosinophils # (Auto) 0.40 K/uL Basophils # (Auto) 0.03 K/uL Micro Results: No microbiology obtained during this admission. Recent Pertinent Medications: Item Value Date Time Aztreonam 2000 mg/ 110 ml @ 100 mls/hr 09/01/16 0200 Dextrose Q8H/IV 09/02/16 0233 Vancomycin HCl 552 ml @ 200 mls/hr 08/31/16 2247 2600 mg/Sodium NOW STAT/IV 08/31/16 2316 Chloride Vancomycin HCl 528 ml @ 200 mls/hr 09/01/16 0800 1400 mg/Sodium Q8H/IV 09/02/16 0732 Chloride Assessment & Plan: Pharmacy has been consulted to dose and monitor Vancomycin for the treatment of cellulitis. Vancomycin trough level of 16.4mcg/mL measured at steady state is: Therapeutic Continue Vancomycin 1400 mg (~13.5mg/kg) IV every 8 hours. * Goal trough level estimate: ~15 mcg/mL. * Trough level has been ordered for: ~30 minutes before the 0000 dose in order to assess that serum concentrations are still within therapeutic range. Pharmacy will continue to follow and will adjust dose/frequency as necessary. Thank you
[2016-09-02 13:07] VITALS: BP 110/70; PULSE 66; TEMP 36.7; O2SAT 96
--- NOTE | 2016-09-02 17:30 | Discharge Summary ---
Discharge Summary Date of Service Sep 02, 2016. (Jessica Arenas PA-C) Discharge Summary Admission Date: Aug 31, 2016 at 22:24 Discharge Date: Sep 02, 2016 Discharge Disposition: Home Principal Diagnosis: Pulmonary Emboli Immunizations: Have You Had Influenza Vaccine: N/A History of Tetanus Vaccine?: Yes History of Pneumococcal: No History of Hepatitis B Vaccine: Unknown Consultations: 1. CT ANGIOGRAM OF THE CHEST CLINICAL HISTORY: Atypical chest pain. Fall one week ago. COMPARISON STUDY: Chest x-ray dated 08/31/2016. Chest CT dated 08/25/2016. TECHNIQUE: Following the IV administration of 116 cc of Optiray 320, CT angiogram of the chest was performed from the upper abdomen to the thoracic inlet utilizing the pulmonary embolus protocol. Images are reviewed in the axial, sagittal, and coronal planes. 3-D MIPS images are created and assessed. IV contrast was administered without complication. CT DOSE: 645.67 mGy.cm FINDINGS: Thyroid: Imaged portions of the thyroid gland are normal in size and attenuation. Thoracic aorta: The thoracic aorta is normal in caliber and demonstrates standard 3-vessel arch anatomy. No dissection is seen. Pulmonary vasculature: The pulmonary trunk is normal in caliber. There are segmental and subsegmental pulmonary emboli within branches of the right lower lobe pulmonary artery the remaining pulmonary vessels are clear. Heart: The heart is normal in size and configuration, and without pericardial effusion. Lungs and pleural spaces: Trace pleural effusions are identified. Significant bibasilar atelectasis is observed. There is no airspace consolidation typical for pneumonia. No pneumothorax is seen. The trachea and central airways are clear. Mediastinum: There is no mediastinal lymphadenopathy. Awa: Clear. Axillae: There is no axillary lymphadenopathy. Upper abdomen: There is a small hiatal hernia. Partially visualized upper abdominal viscera is otherwise within normal limits. Skeletal structures: No lytic or blastic bony lesions are seen. Arthritic change is noted in the shoulders, left greater than right. There are nondistracted right lateral 6th through 8th rib fractures. IMPRESSION: 1. There are segmental and subsegmental pulmonary emboli within branches of the right lower lobe pulmonary artery. 2. There are nondistracted right lateral 6th through 8th rib fractures. 3. No pneumothorax is seen. 4. Trace pleural effusions and bibasilar atelectasis. 5. Additional findings as above. 2. ULTRASOUND BILATERAL LOWER EXTREMITY VENOUS CLINICAL HISTORY: Lower extremity pain and swelling. COMPARISON STUDY: No priors. TECHNIQUE: Real-time, grayscale, and color Doppler sonography of the deep veins of the right and left lower extremity was performed from the inguinal crease to the calf. Compression and augmentation were utilized. FINDINGS: There is no sonographic evidence of deep venous thrombosis identified in the right or left lower extremity. The common femoral, superficial femoral, and popliteal veins are patent and normally compressible bilaterally. The greater saphenous vein and the profunda femoris vein at the junction with the common femoral vein are clear in both legs. The visualized calf veins are patent bilaterally. IMPRESSION: There is no sonographic evidence of deep venous thrombosis identified in the right or left lower extremity. (Jessica Arenas, ISABELLAC) Medication Reconciliation New Medications: Cephalexin (Keflex) 500 Mg Cap 1 CAP PO BID for 5 Days, #10 CAP Lidocaine (Lidocaine) 1 Patch Tdsy 1 PATCH TD QAM for 15 Days Rivaroxaban (Xarelto) 10 Mg Tab 15 MG PO BID, #39 TAB take one dose tonight (09/02) then resume twice a day on 09/03 Continued Medications: Amino Acids (Amino Acids Complex) 1 Tab Tab 1 TAB PO DAILY Ascorbic Acid (Vitamin C) 100 Mg Chw 1-5 TABS PO DAILY Fexofenadine Hcl (Mago Allergy) 60 Mg Tab 1 TAB PO DAILY Fluticasone Prop/Salmeterol (Advair Diskus 500/50 60 Dose) 1 Ea Aerp 2 PUFFS INH BID Fluticasone Propionate (Nasal) (Flonase Allergy Relief) 50 Mcg/Act Spr 1 SPRAY BRIDGETT QAM Lansoprazole (Prevacid) 15 Mg Capcr 15 MG PO QPM Lorazepam (Ativan) 1 Mg Tab 1 MG PO QPM, TAB Milk Thistle (Silybum Marianum (Milk Thistle) 150 Mg Cap Unknown Dose PO BID Multivitamin (Multivitamin) Tab 1 TAB PO DAILY, TAB Oxycodone/Acetaminophen 5MG/325MG (Percocet 5MG/325MG) Tab 1 TABLET PO Q4H PRN for Pain, TAB PAIN Prazosin Hcl (Prazosin) 1 Mg Cap 1 MG PO HS, CAP Dulce Maria's Wort ([place] Perf ([place] Wort) 150 Mg Tab Unknown Dose PO DAILY Topiramate (Topamax) 50 Mg Tab 50 MG PO DAILY, TAB Valacyclovir (Valtrex) 500 Mg Tab 500 MG PO BID PRN for PRN, TAB Discontinued Medications: Nitrofurantoin Macrocrystal (Nitrofurantoin) 100 Mg Cap 100 MG PO Q12 Discharge Exam Review of Systems: Constitutional: No chills, No fever ENT: No nasal symptoms, No sore throat, No trouble swallowing Respiratory: No cough, No dyspnea at rest, No dyspnea on exertion, No wheezing Cardiovascular: No chest pain Abdomen: No constipation, No diarrhea, No nausea, No pain, No vomiting Musculoskeletal: + swelling (improving), No calf pain Genitourinary - Male: No dysuria Neurologic: No numbness/tingling Hematologic / Lymphatic: No abnormal bleeding/bruising Integumentary: No rash Physical Exam: General Appearance: WD/WN, no apparent distress Eyes: sclerae normal ENT: hearing grossly normal Neck: supple, no JVD, trachea midline Respiratory/Chest: lungs clear, normal breath sounds, no respiratory distress, no accessory muscle use Cardiovascular: regular rate, rhythm, no gallop, no murmur Abdomen / GI: normal bowel sounds, non tender, soft Extremities: no calf tenderness, normal capillary refill, + swelling (trace to 1+ pitting edema of bilateral ankles; mild erythema noted bilaterally) Neurologic/Psychiatric: alert, oriented x 3 Skin: normal color (Jessica Arenas, PA-C) Review of Systems: Constitutional: No chills, No fatigue, No fever, No problem reported, No sweats, No weakness, No weight loss Eyes: No diplopia, No discharge, No eye pain, No problem reported, No redness, No worsening of vision ENT: No dental problems, No hearing loss, No nasal symptoms, No problem reported, No sore throat, No tinnitus, No trouble swallowing, No unusual epistaxis Respiratory: No cough, No dyspnea at rest, No dyspnea on exertion, No hemoptysis, No problem reported, No shortness of breath, No sputum, No wheezing Cardiovascular: No PND, No chest pain, No claudication, No edema, No orthopnea, No palpitations, No problem reported Abdomen: No GI bleeding, No constipation, No diarrhea, No nausea, No pain, No problem reported, No vomiting Musculoskeletal: No calf pain, No joint pain, No muscle pain, No problem reported, No swelling Genitourinary - Female: No dysmenorrhea, No dysuria, No hematuria, No menorrhagia, No metrorrhagia, No , No problem reported, No rash, No urinary frequency, No urinary incontinence, No urinary retention, No urinary urgency, No vaginal bleeding, No vaginal discharge, No vaginal itching, No vulvodynia Neurologic: No balance problems, No memory loss, No numbness/tingling, No paralysis, No problem reported, No vertigo, No weakness Psychiatric: No anhedonism, No anxiety, No depression symptoms, No insomnia , No problem reported, No substance abuse Endocrine: No excessive thirst, No excessive urination, No fatigue, No problem reported Hematologic / Lymphatic: No abnormal bleeding/bruising, No clotting problems , No night sweats, No problem reported, No swollen lymph nodes Physical Exam: General Appearance: no apparent distress Eyes: normal inspection, PERRL, EOMI ENT: normal ENT inspection, hearing grossly normal Neck: supple Respiratory/Chest: chest non-tender, lungs clear, normal breath sounds, no respiratory distress, no accessory muscle use Cardiovascular: regular rate, rhythm, no edema, no gallop, no murmur Abdomen / GI: normal bowel sounds, non tender, soft, no organomegaly, no pulsatile mass, normal rectal exam Extremities: normal inspection, no calf tenderness, normal capillary refill , no pedal edema Neurologic/Psychiatric: instructional leader II-XII nml as tested, no motor/sensory deficits , alert, normal mood/affect, normal reflexes, oriented x 3 Skin: normal color, warm/dry, no rash (Ramu Flores MD) Hospital Course ADMISSION: The patient is a 51-year-old male who presents emergency department complaining of right-sided rib cage pain, shortness of breath and swelling of bilateral lower extremities right worse than left progressively worsening since he fell from 25 feet and was admitted August 25 due to a lumbar fracture and pulmonary contusions. As he has been gradually trying to increase his activity pain is intensified, and reports that it is somewhat controlled with use of Percocet. He was also seen by urology and has stent removed yesterday. He's had no new injuries since discharge, and reports normal brain function, confirmed by family in attendance. HOSPITAL COURSE: Mr. Butterfield was admitted for RLL pulmonary emboli confirmed on CTA. Venous Dopplers of bilateral lower extremities are negative for evidence of DVT. Please see procedures for official report. Patient without evidence of hypoxia and denies SOB. He was initiated on Xarelto 15 mg BID with plans to continue this for 21 days with conversion to 20 mg daily. On discharge he is currently on day #07/30. This medication was discussed with his pharmacy for affordability and a savings card initiated to assist with co-pays. It appears these PEs are likely provoked due to pro-inflammatory state secondary to trauma/acute venous insufficiency. Lower extremities with noted superficial lacerations. However, he was scheduled for an appointment with hematology to rule out other causes of a hypercoagulable state. An appointment with Dr. Cruz for 09/06/16 was established. Upon presentation to the hospital he complained of bilateral lower extremity edema with the right worse than the left and evidence of erythema. Patient is afebrile without leukocytosis. Erythema likely secondary to inflammation and probable origin of DVT. Again venous Dopplers were negative for DVT. During admission he was treated with vancomycin and aztreonam with conversion to Keflex 500 mg BID 5 days and instructed to discontinue his Macrobid that was prescribed for his ureteral stent that was recently removed. Keflex will be adequate coverage for both issues. In regards to his multiple right-sided rib fractures he was continued on his home Percocet prescription and prescription provided for lidocaine patches. These patches were utilized during admission and patient reports marked improvement in pain control. In addition, patient was given a prescription for compression stockings to assist with acute venous insufficiency as patient currently without evidence of DVT per imaging. Patient is afebrile, hemodynamically stable, adequate oxygenation, and is not dyspneic. He is suitable for discharge home with PCP follow-up on 09/09/2016. Total Time Spent: Greater than 30 minutes This includes examination of the patient, discharge planning, medication reconciliation, and communication with other providers. (Jessica Arenas, PAYuniC) Addendum Patient was seen and examined by me I discussed and formulated the assessment and plan with Miss Jessica Arenas (MATT) , I also agree with her physical exam PE and cellulits possibly lower Ext DVT that already migrated to the lung could be provoked as he had a recent fall 2 weeks (mechanical fall at work) with rib fracture discharged on xarelto and instructed to follow up with electrical apprentice Ramu Jordan [place] Hospitalist (Ramu Flores MD) Discharge Instructions Please refer to the electronic Patient Visit Report (Discharge Instructions) for additional information. (Jessica Arenas, ISABELLAC) Additional Copies To Angel Major M.D.; Wu Cruz D.O.
[2016-09-03] MEDS ORDERED: VANCOMYCIN TROUGH SCH (23:30)
== END 2016-09-02 13:57 | disposition home or self-care (01) | DRG 176 ==
LOC: ENRESERVDT → ENRESERVTM → C.EDB 17:44 → C.MSW 22:24
PROVIDERS: ADMIT Hospitalist; ATTEND Hospitalist
DX: I26.99 Other pulmonary embolism without acute cor pulmonale (principal); L03.115 Cellulitis of right lower limb; S22.41XA Multiple fractures of ribs, right side, initial encounter for closed fracture; J45.909 Unspecified asthma, uncomplicated; K21.9 Gastro-esophageal reflux disease without esophagitis; G47.00 Insomnia, unspecified; F41.9 Anxiety disorder, unspecified; R60.0 Localized edema; I10 Essential (primary) hypertension; I87.2 Venous insufficiency (chronic) (peripheral); W17.89XA Other fall from one level to another, initial encounter; Z98.890 Other specified postprocedural states; Z79.51 Long term (current) use of inhaled steroids; Z87.891 Personal history of nicotine dependence; Z79.899 Other long term (current) drug therapy; Z79.891 Long term (current) use of opiate analgesic

== ENCOUNTER → 2016-09-05 | Outpatient (CLI) | payer BC ==
[~2016-09-05] MED LIST changes: +AMINTAB13 PO; +ASCO100C2 PO; +CEPH-571 PO; +LDDP5 TD; +MILK150C PO; -MIRA100T PO; +MULT-506 PO; +OXYC-57 PO; -RXC5 PO; +ST J150T PO; +XRL10 PO
[2016-09-18 09:42] LABS: COMPOSITION Mucin 100%
== END | disposition home or self-care (01) ==
LOC: C.LABSPEC 17:20
PROVIDERS: ATTEND Urology
DX: N20.0 Calculus of kidney (principal)

== ENCOUNTER → 2016-09-05 | Outpatient (CLI) | payer BC ==
--- NOTE | 2016-09-05 15:02 | DIAGNOSTIC IMAGING REPORT ---
KUB CLINICAL HISTORY: Nephrolithiasis. FINDINGS: An AP supine abdominal radiograph is -compared to study dated 08/29/2016 and correlated with abdominal CT dated 08/25/2016. A left ureteral has been removed from previous. A 6 mm stone fragment projects over the lower pole of the left kidney. The remaining stone fragments identified on 08/29/2016 are no longer clearly seen. No definite right renal calculi are seen, although the right renal shadow was largely obscured by overlying colonic contents. There is a nonobstructed abdominal bowel gas pattern. Moderate colonic fecal retention is observed. The bony structures appear intact. IMPRESSION: 1. A left ureteral stent hasn't removed from previous. 2. A 6 mm stone fragment projects over the left kidney. The remaining fragments seen on 08/29/2016 and no longer identified 3. No definite calcifications are seen in the right kidney which was largely obscured. Electronically signed by: Jamin Bassett M.D. 09/05/2016 3:00 PM Dictated Date/Time: 09/05/2016 2:58 PM
== END | disposition home or self-care (01) ==
LOC: C.RAD 14:42
PROVIDERS: ATTEND Urology
DX: N20.0 Calculus of kidney (principal); Z98.890 Other specified postprocedural states

== ENCOUNTER → 2016-09-26 | Outpatient (CLI) | payer BC ==
[~2016-09-26] MED LIST changes: -CEPH-571 PO
--- NOTE | 2016-09-26 20:40 | DIAGNOSTIC IMAGING REPORT ---
KUB HISTORY: N20.0 Nephrolithiasis COMPARISON: KUB 09/05/2016. FINDINGS: The bowel gas pattern is unremarkable. There are no dilated loops of small bowel to suggest an obstruction. There are few punctate stones within the right kidney, unchanged. Multiple left renal calculi are again noted. No definite ureteral calculi identified. No bladder calculi. No pneumoperitoneum or pneumatosis. IMPRESSION: Stable bilateral nephrolithiasis. No ureteral calculi. Electronically signed by: Tim Madrid M.D. 09/26/2016 8:37 PM Dictated Date/Time: 09/26/2016 8:36 PM
== END | disposition home or self-care (01) ==
LOC: C.RAD 20:04
PROVIDERS: ATTEND Urology
DX: N20.0 Calculus of kidney (principal)

== ENCOUNTER 2018-02-02 17:07 | Emergency (ER) | payer BC ==
[~2018-02-02] VITALS: Ht 188 cm; Wt 112.8 kg
[~2018-02-02 17:07] MED LIST changes: -AMINTAB13 PO; -ASCO100C2 PO; -MULT-506 PO; -ST J150T PO
[2018-02-02 17:25] VITALS: TEMP 37.1; Ht 188 cm; Wt 112.8 kg
[2018-02-02] MEDS ORDERED: MILK1CAP PO (18:15)
[2018-02-02] MEDS ORDERED: ASPCH81X PO (18:21)
[2018-02-02] MEDS ORDERED: DIAZ-165 PO (18:21)
[2018-02-02] MEDS ORDERED: AMINTAB13 PO (18:42)
[2018-02-02] MEDS ORDERED: ASCO100C2 PO (18:42)
[2018-02-02] MEDS ORDERED: MULT-506 PO (18:42)
[2018-02-02] MEDS ORDERED: ST J150T PO (18:42)
[2018-02-02 18:44] LABS: BASO % 0.6 %; BASO ABS # 0.06 K/uL (0-0.2); EOS % 9.9 %; EOS ABS # 0.97 K/uL (0-0.5); HEMATOCRIT 42.3 % (42-52); HEMOGLOBIN 14.1 g/dL (14.0-18.0); IG# 0.04 K/uL (0.00-0.02); LYMPH % 21.5 %; MEAN CELL VOLUME 92.8 fL (80-100); MEAN CORPUSCULAR HEMOGLOBIN 30.9 pg (25-34); MEAN CORPUSCULAR HGB CONC 33.3 g/dl (32-36); MEAN PLATELET VOLUME 9.1 fL (7.4-10.4); MONO % 9.2 %; NEUT % 58.4 %; NEUT ABS # 5.72 K/uL (1.4-6.5); PLATELET COUNT 279 K/uL (130-400); RED CELL DISTRIBUTION WIDTH CV 14.6 % (11.5-14.5); RED CELL DISTRIBUTION WIDTH SD 49.2 fL (36.4-46.3); WHITE BLOOD COUNT 9.79 K/uL (4.8-10.8)
[2018-02-02] MEDS ORDERED: CEFTRIAXONE SOD INJ 1 GM ADDVIAL IV STA (18:47)
[2018-02-02 19:05] LABS: CALCIUM 8.4 mg/dl (8.5-10.1); CREATININE 1.07 mg/dl (0.60-1.40)
--- NOTE | 2018-02-02 19:25 | DIAGNOSTIC IMAGING REPORT ---
R VENOUS DOPP LOWER EXT UNILAT HISTORY: 52 years-old Male rle ? dvt. hxt 2017 acute pain and swelling of the right lower extremity COMPARISON: CTA chest 08/31/2016, duplex venous Doppler study 08/31/2017 TECHNIQUE: Multiple real-time sonographic images of the right lower extremity deep venous structures were obtained assessing grayscale appearance, color and spectral flow FINDINGS: There is normal flow, compressibility, phasicity and augmentation of the right lower extremity deep venous structures. IMPRESSION: No sonographic evidence of deep venous thrombosis. The above report was generated using voice recognition software. It may contain grammatical, syntax or spelling errors. Electronically signed by: Luis F Escamilla M.D. 02/02/2018 7:23 PM Dictated Date/Time: 02/02/2018 7:22 PM
[2018-02-02 19:32] VITALS: BP 104/58; PULSE 85; O2SAT 100
[2018-02-02] MEDS ORDERED: CEPH500C PO (19:33)
--- NOTE | 2018-02-02 20:37 | EMERGENCY ROOM VISIT NOTE ---
History Report prepared by Manoj: Elis Stephens Under the Supervision of: Dr. Stef Higgins D.O. First contact with patient: 17:30 Chief Complaint: LEG PAIN,LEG INJURY Stated Complaint: LOWER RIGHT LEG PAIN History of Present Illness The patient is a 52 year old male who presents to the Emergency Room with complaints of worsening right leg pain that onset 3 days ago. The patient notes that in 2017, he fell through a barn door and developed cellulitis and blood clotting. He states that the pain is similar to what he felt when he had cellulitis in 2017. He notes that the pain is exacerbated with touching. The patient complains of nausea. He notes the leg is not swollen but it is erythematous tender/sharp stabbing. The patient denies fever, shortness of breath, vomiting, and chest pain. The patient has a history of DVT. He denies a history of diabetes. He notes that he is not currently taking blood thinners. Source of History: patient Onset: 3 days ago Position: leg (right) Modifying Factors (Worsening): other (touch) Associated Symptoms: No fevers, No chest pain, No SOB, No vomiting Review of Systems See HPI for pertinent positives & negatives. A total of 10 systems reviewed and were otherwise negative. Past Medical & Surgical Medical Problems: (1) Allergic rhinitis (2) Asthma (3) Bilateral pulmonary contusion (4) blocked ureteral stent (5) Cellulitis of right lower extremity (6) GERD (gastroesophageal reflux disease) (7) Hypertension (8) Pulmonary embolism (9) Tinea pedis Family History Cancer Diabetes mellitus Heart disease Hypertension Social History Smoking Status: Former Smoker Drug Use: none Marital Status: Housing Status: lives with significant other Occupation Status: employed Current/Historical Medications Scheduled Amino Acids (Amino Acids Complex), 1 TAB PO DAILY Ascorbic Acid (Vitamin C), 100-500 MG PO DAILY Aspirin (Aspirin Chewable), 81 MG PO DAILY Cephalexin Monohydrate (Keflex), 500 MG PO QID Fexofenadine Hcl (Mago Allergy), 60 MG PO DAILY Fluticasone Prop/Salmeterol (Advair Diskus 500/50 60 Dose), 2 PUFFS INH BID Fluticasone Propionate (Nasal) (Flonase Allergy Relief), 2 SPRAYS BRIDGETT DAILY Lansoprazole (Prevacid), 15 MG PO QPM Milk Thistle (Silybum Marianum (Milk Thistle), 500 MG PO DAILY Multivitamin (Multivitamin), 1 TAB PO DAILY Prazosin Hcl (Prazosin), 1 MG PO HS Dulce Maria's Wort ([place] ([place] Wort), 1 TAB PO DAILY Topiramate (Topamax), 50 MG PO DAILY Scheduled PRN Diazepam (Valium), 5 MG PO DAILY PRN for Anxiety Lorazepam (Ativan), 1 MG PO DAILY PRN for Anxiety Valacyclovir (Valtrex), 500 MG PO BID PRN for PRN Allergies Coded Allergies: Shellfish (Verified Allergy, Severe, ANAPHYLAXIS, 08/31/16) [place] (Verified Allergy, Severe, ANAPHYLAXIS, 08/31/16) [place] (Verified Allergy, Severe, ANAPHYLAXIS, 08/31/16) Penicillins (Verified Allergy, Unknown, UNKNOWN - HAPPENED CHILD, ) Sulfa Antibiotics (Verified Allergy, Unknown, HIVES, 08/31/16) Pantoprazole (Verified Adverse Reaction, Unknown, "NON-TOLERANT", 08/31/16) Physical Exam Vital Signs Date Time Temp Pulse Resp B/P (MAP) Pulse Ox O2 Delivery O2 Flow Rate FiO2 02/02/18 19:32 85 18 104/58 100 Room Air 02/02/18 19:07 68 18 113/72 98 Room Air 02/02/18 18:40 85 18 139/71 97 Room Air 02/02/18 17:25 37.1 87 18 149/84 97 Room Air Physical Exam GENERAL: Sitting up in bed, alert, well appearing, well nourished, no distress, non-toxic EYE EXAM: normal conjunctiva. OROPHARYNX: no exudate, no erythema, lips, buccal mucosa, and tongue normal and mucous membranes are moist NECK: supple, no nuchal rigidity, no adenopathy, non-tender LUNGS: Clear to auscultation. Normal chest wall mechanics HEART: no murmurs, S1 normal and S2 normal ABDOMEN: abdomen soft, non-tender, normo-active bowel sounds, no masses, no rebound or guarding. BACK: Back is symmetrical on inspection and there is no deformity, no midline tenderness, no CVA tenderness. SKIN: no rashes and no bruising UPPER EXTREMITIES: upper extremities are grossly normal. LOWER EXTREMITIES: DP 2/4. Gross sensations intact. Erythema and on the right leg. Right leg warm and tender to palpitation extending 5 inches mostly anteriorly. NEURO EXAM: Normal sensorium, cranial nerves II-XII grossly intact, normal speech, no gross weakness of arms, no gross weakness of legs. Medical Decision & Procedures ER Provider Diagnostic Interpretation: Radiology results as stated below per my review and the radiologist's interpretation: R VENOUS DOPP LOWER EXT UNILAT HISTORY: 52 years-old Male rle ? dvt. hxt 2017 acute pain and swelling of the right lower extremity COMPARISON: CTA chest 08/31/2016, duplex venous Doppler study 08/31/2017 TECHNIQUE: Multiple real-time sonographic images of the right lower extremity deep venous structures were obtained assessing grayscale appearance, color and spectral flow FINDINGS: There is normal flow, compressibility, phasicity and augmentation of the right lower extremity deep venous structures. IMPRESSION: No sonographic evidence of deep venous thrombosis. The above report was generated using voice recognition software. It may contain grammatical, syntax or spelling errors. Electronically signed by: Luis F Escamilla M.D. 02/02/2018 7:23 PM Dictated Date/Time: 02/02/2018 7:22 PM Laboratory Results 02/02/18 18:30 Red Blood Count 4.56, Mean Corpuscular Volume 92.8, Mean Corpuscular Hemoglobin 30.9, Mean Corpuscular Hemoglobin Concent 33.3, Mean Platelet Volume 9.1, Neutrophils (%) (Auto) 58.4, Lymphocytes (%) (Auto) 21.5, Monocytes (%) (Auto) 9.2, Eosinophils (%) (Auto) 9.9, Basophils (%) (Auto) 0.6, Neutrophils # (Auto) 5.72, Lymphocytes # (Auto) 2.10, Monocytes # (Auto) 0.90, Eosinophils # (Auto) 0.97, Basophils # (Auto) 0.06 02/02/18 18:30 Test 02/02/18 18:30 White Blood Count 9.79 K/uL (4.8-10.8) Red Blood Count 4.56 M/uL (4.7-6.1) Hemoglobin 14.1 g/dL (14.0-18.0) Hematocrit 42.3 % (42-52) Mean Corpuscular Volume 92.8 fL (80-100) Mean Corpuscular Hemoglobin 30.9 pg (25-34) Mean Corpuscular Hemoglobin Concent 33.3 g/dl (32-36) Platelet Count 279 K/uL (130-400) Mean Platelet Volume 9.1 fL (7.4-10.4) Neutrophils (%) (Auto) 58.4 % Lymphocytes (%) (Auto) 21.5 % Monocytes (%) (Auto) 9.2 % Eosinophils (%) (Auto) 9.9 % Basophils (%) (Auto) 0.6 % Neutrophils # (Auto) 5.72 K/uL (1.4-6.5) Lymphocytes # (Auto) 2.10 K/uL (1.2-3.4) Monocytes # (Auto) 0.90 K/uL (0.11-0.59) Eosinophils # (Auto) 0.97 K/uL (0-0.5) Basophils # (Auto) 0.06 K/uL (0-0.2) RDW Standard Deviation 49.2 fL (36.4-46.3) RDW Coefficient of Variation 14.6 % (11.5-14.5) Immature Granulocyte % (Auto) 0.4 % Immature Granulocyte # (Auto) 0.04 K/uL (0.00-0.02) Prothrombin Time 10.5 SECONDS (9.0-12.0) Prothromb Time International Ratio 1.0 (0.9-1.1) Anion Gap 8.0 mmol/L (3-11) Est Creatinine Clear Calc Drug Dose 107.9 ml/min Estimated GFR () 92.0 Estimated GFR (Non- 79.4 BUN/Creatinine Ratio 13.9 (10-20) Calcium Level 8.4 mg/dl (8.5-10.1) Laboratory results per my review. Medications Administered Medications (Trade) Dose Ordered Sig/Mikel Route Start Time Stop Time Status Last Admin Dose Admin Ceftriaxone Sodium (Rocephin Inj) 1 gm NOW STAT IV 02/02/18 18:47 02/02/18 18:48 DC 02/02/18 18:53 1 GM ED Course ED COURSE: Vital signs were reviewed and were normal. The patients medical record was reviewed The above diagnostic studies were performed and reviewed. While in the ED, the patient received Rocephin Inj 1 gm IV. ED treatments and interventions as stated above. 173: The patient was evaluated in room C8. A complete history and physical examination was performed. 193: Upon reevaluation, the patient is resting comfortably. I discussed my findings with the patient and he understands and agrees with the treatment plan. Based on the patients age, coexisting illnesses, exam and lab findings the decision to treat as an outpatient was made. The patient remained stable while under my care. The patient appeared well at the time of discharge. Medical Decision Differential diagnosis: Etiologies such as cellulitis, abscess, MRSA infection, DVT, necrotizing fasciitis, dermatitis, drug eruption, as well as others were entertained. Patient is a 52-year-old male who presents the ER for right leg pain and erythema which is tender to palpation. He does have a history of previous blood clots which were secondary to trauma. On exam it does appear to be red, tender and warm. Duplex was negative. CBC and BMP were unremarkable. Patient was given IV Rocephin. He was discharged on Keflex and instructed to follow-up with PCP as an outpatient for cellulitis of his right lower extremity. Discussed with Pt concerning signs and symptoms to watch out for. Pt was instructed to follow up with their PCP and discussed with the patient their option to return to the ED at anytime for persistent or worsening symptoms. The appropriate anticipatory guidance and out-patient management, including indications for return to the emergency department, were explained at length to the patient and understood. Medication Reconcilliation Current Medication List: was personally reviewed by me Blood Pressure Screening Patient's blood pressure: Normal blood pressure Impression Primary Impression: Cellulitis of right lower extremity Scribe Attestation The scribe's documentation has been prepared under my direction and personally reviewed by me in its entirety. I confirm that the note above accurately reflects all work, treatment, procedures, and medical decision making performed by me. Departure Information Dispostion Home / Self-Care Prescriptions Cephalexin Monohydrate (Keflex) 500 Mg Cap 500 MG PO QID, #40 CAP Prov: Stef Higgins, DO 02/02/18 Referrals Angel Major M.D. (PCP) Forms HOME CARE DOCUMENTATION FORM, IMPORTANT VISIT INFORMATION Patient Instructions My [facility] Additional Instructions Please follow up with your primary care doctor with in the next 24 hours. Any worsening of your symptoms, please return to the ED immediately. This includes any fevers greater than 100.4, worsening pain, chest pain, shortness breath, persistent nausea, vomiting, unable to eat or drink, or any other concerning signs or symptoms from your standpoint. Please take the antibiotics as prescribed.
== END 2018-02-02 19:59 | disposition home or self-care (01) ==
LOC: C.EDB 17:09 → C.EDC 19:59
DX: L03.115 Cellulitis of right lower limb (principal); J45.909 Unspecified asthma, uncomplicated; K21.9 Gastro-esophageal reflux disease without esophagitis; I10 Essential (primary) hypertension; I26.99 Other pulmonary embolism without acute cor pulmonale; Z87.891 Personal history of nicotine dependence; Z79.82 Long term (current) use of aspirin; Z91.013 Allergy to seafood; Z91.018 Allergy to other foods; Z88.2 Allergy status to sulfonamides; Z88.0 Allergy status to penicillin